=== PATIENT | male | born 1975 | race Caucasian/White ===

== ENCOUNTER 2018-06-09 16:49 | Observation (INO) | payer BC, SELFPAY ==
[2018-06-09] VITALS (9 sets, daily range): BP systolic 140–185; BP diastolic 87–106; PULSE 75–118; RESP 17–24; TEMP 36.8–37.2; O2SAT 96–100; BMI 29.3; BMI 28.7
--- NOTE | 2018-06-09 16:54 | EKG12_ITS ---
Test Reason : CP Blood Pressure : / mmHG Vent. Rate : 116 BPM Atrial Rate : 116 BPM P-R Int : 156 ms QRS Dur : 096 ms QT Int : 306 ms P-R-T Axes : 044 086 -21 degrees QTc Int : 425 ms Sinus tachycardia T wave abnormality, consider inferior ischemia Abnormal ECG Confirmed by JAYLAN MAYER, LOCO ([id number]), science editor MILE RAND ([id number]) on 06/11/2018 10:01:16 AM Referred By: ROSALEE/ALICE Confirmed By:LOCO TIAN MD
--- NOTE | 2018-06-09 16:55 | RAD_ITS ---
STUDY: X-RAY CHEST REASON FOR EXAM: Male, 43 years old. Chest pain. TECHNIQUE: Single AP portable view of the chest. COMPARISON: None. FINDINGS: Telemetry wires overlie the chest. The lungs are clear and expanded. There is no demonstrated pleural abnormality. Normal size heart. Normal mediastinum and shadia. Normal visualized pulmonary arteries. Normal visualized aortic arch and descending thoracic aorta. Normal visualized thoracic spine. Normal visualized ribs, clavicles, and shoulders. There is no demonstrated abnormality of the visualized soft tissue structures of the upper abdomen. RAD/Chest 1 View (Portable) IMPRESSION: Normal x-ray examination of the chest. Electronically Signed: Alonzo Rouse DO at 17:13 EDT Tel [phone], Service support ,
--- NOTE | 2018-06-09 17:02 | ED.RN ---
NO OLD EKG
[2018-06-09 17:05] LABS: Absolute Lymphocyte Count 2.45 X10^3/ul (0.83-4.51); Absolute Neutrophil Count 9.3 X10^3/uL (2.0-7.7); Basophil# 0.02 X10^3/uL; Basophil% 0.2 % (0-1); Eosinophil# 0.07 X10^3/uL; Eosinophils% 0.6 % (0-5); Hematocrit 45.9 % (40-54); Hemoglobin 15.8 g/dl (13.0-16.5); Lymphocyte # 2.45 X10^3/ul (4.0); Lymphocyte % 19.8 % (19-41); Mean Corp Hgb Conc 34.4 g/gl (32-36); Mean Corpuscular Volume 84.4 fL (80-94); Mean Platelet Vol. 9.8 fl (6.2-12.0); Monocyte# 0.47 X10^3/uL; Monocyte% 3.8 % (0-10); Neutrophil # 9.33 X10^3/uL (2.7-7.7); Neutrophil % 75.3 % (47-70); Platelet Count 295 K/mm3 (150-450); RBC Distribution Width CV 13.1 % (11.6-14.6); Red Blood Count 5.44 M/mm3 (4.6-6.2); White Blood Count 12.4 K/mm3 (4.4-11.0)
[2018-06-09 17:06] LABS: POSITIVE COUNT NO; POSITIVE DIFFERENTIAL NO; POSITIVE MORPHOLOGY NO
[2018-06-09] MEDS: Aspirin 81 MG TAB.CHEW 324 MG PO (17:13)
[2018-06-09 17:29] LABS: Anion Gap 6 (5-15); BUN 7 mg/dL (7-18); BUN/Creat Ratio 6.1 RATIO (10-20); Calcium,Total 9.3 mg/dL (8.5-10.1); Chloride 105 mmol/L (98-107); Creatinine, Serum 1.14 mg/dL (0.70-1.30); EST Glomerular Filtration Rate 74 mL/min (>60); Est Glom Filt Rate - Afr Amer 90 mL/min (>60); Estimated Creatinine Clearance 78.12 ml/min; Glucose 106 mg/dL (74-106); Potassium 3.7 mmol/L (3.5-5.1); Sodium Level 139 mmol/L (136-145)
[2018-06-09 17:40] LABS: D-Dimer Quantitative (DVT/PE) < 0.27 FEU/ug/m (0.27-0.49)
--- NOTE | 2018-06-09 17:52 | ED.DCSUM_ITS ---
- ER Visit Summary Date of Service: 06/09/18 Chief Complaint: Chest pain History of Present Illness: The patient is a 43 M presenting with chest pain. Patient was bowling today and began having midsternal chest pain. This radiated to his left arm. Pain improved over the next couple of hours. He states that at the worst it was 8 out of 10. Currently 0/10. Pain was a heaviness. He had associated nausea, diaphoresis, lightheadedness. He denies shortness of breath. He denies known medical problems but does not see a doctor regularly. He states that at his work he has had his blood pressure and cholesterol checked and they have been high. He is a smoker. Physical Examination: Vitals are stable. Patient is afebrile. Alert no acute distress. HEENT exam is unremarkable. Neck is supple. Lungs are clear and equal bilaterally. Heart is regular rate and rhythm. Abdomen is soft nontender nondistended. Extremities are unremarkable. Skin is warm and dry. No focal neurologic deficit. Remainder of exam is unremarkable. Emergency Department Course and Treatment: Patient was given aspirin on arrival. EKG is sinus tach rate of 116 with inferior T wave inversions, no old for comparison. Chest x-ray shows no acute process. CBC shows white count 12.4. Chemistries normal. Troponin and d-dimer are negative. Patient is pain-free in the emergency department. Discussed with the hospitalist for observation. Disposition: Observation Impression: Chest pain This note was generated with [employer] dictation software. It may contain incorrect words, spelling, and punctuation that were not noted in review of the chart prior to signing ED Disposition - Plan for ED Patient: Chief Complaint: Chest Pain Referrals: Care Physician,No Primary [Primary Care Provider] -
--- NOTE | 2018-06-09 18:59 | PCM.HP.STD ---
History of Present Illness Date of Admission: 06/09/18 Chief Complaint: Chest pain. The patient is a 43 year old M with no significant past medical history presented to the emergency room because of chest pain. Her symptoms started when he was bowling today and started having chest pain, midsternal pain and to the left side, sharp pain, 8 out of 10 in severity, currently is almost 0 out of 10 in severity, sometimes goes to his left arm, associated with nausea and dizziness and without aggravating or relieving factors. He denies shortness of breath, syncope or presyncope. He mentioned that before this episode chest pain, he had an episode of dizziness while he was bowling. He mentioned that his blood pressure has been fluctuating significantly and sometimes it is high. Also, he did mention that he was diagnosed with an anxiety recently. Upon arrival to ER, he was tachycardic, hypertensive and his other vital signs were stable. His routine blood work was unremarkable except for mild leukocytosis which is probably reactive. His d-dimer and troponin were negative. EKG revealed normal sinus rhythm, normal [place] interval, normal QRS, minimal T wave inversion in leads III and aVF, no acute ischemic changes. Chest x-ray showed no acute findings. He is being admitted for chest pain for evaluation. Past Medical History Allergies No Known Allergies Allergy (Verified 06/09/18 16:52) Home Medications: Ambulatory Orders Medication Instructions Recorded NK 06/09/18 Surgical History: no surgical history Psychiatric History: Anxiety Lives: With Family Smoking Status: Current every day smoker Alcohol: None Drugs: None - *Family History Maternal History Items: Hypertension Paternal History Items: Hypertension Review of Systems Constitutional: Denies: Anorexia, Chills, Fever, Weakness Eyes: Denies: Blurred vision, Double vision, Drainage, Redness HEENT: Denies: Difficulty Hearing, Ear Pain, Eye Pain, Nasal Congestion, Sore Throat Cardiovascular: Reports: Chest Pain, Light Headedness. Denies: Edema, Heaviness, Palpitations, Paroxysmal Noc. Dyspnea, Syncope Respiratory: Denies: Cough, Hemoptysis, Pleuritic Pain, Shortness of Breath, Sputum production, Wheezing Gastrointestinal: Reports: Nausea. Denies: Abdominal Pain, Constipation, Diarrhea, Vomiting Musculoskeletal: Denies: Arm Pain, Back Pain, Foot Pain Skin: Denies: Dryness, Rash Neurological: Denies: Balance problems, Double vision, Change in Speech, Slurred speech, Confusion, Headaches, Incoordination, Numbness Psychiatric: Reports: Anxiety. Denies: Depression Endocrine: Denies: Change in Body Habitus, Polydipsia VTE Information - Inpt Only VTE Present on Admission: No VTE Mechan Device Prophylaxis: None VTE Pharm Prophylaxis ordered?: No - Physical Exam General: Alert, Oriented x3, Cooperative, No apparent distress HEENT: Atraumatic, PERRLA, EOMI, Normocephalic Oral: Moist Mucosa, No Gingival or Mucosal Lesions/ Ulcerations Neck: Supple, No JVD, Negative Carotid Bruits, Trachea Midline, Thyroid Normal Size and Texture Lungs: Clear to auscultation, Normal air movement, No rhonchi, No wheeze, No rales Cardiovascular: Regular rate, Regular Rhythm, Normal S1, Normal S2, No murmurs Abdomen: Bowel Sounds Present, Soft, Non Tender, Non-Distended, No Hepato-splenomegaly Extremities: No clubbing, No cyanosis, No edema Skin: No rashes, No breakdown Lymphatic: No Cervical, Supraclavicular, or Inguinal Adenopathy Neurological: Cranial nerves II-XII grossly intact, Motor Exam 5/5 strength throughout Psych/Mental Status: Normal Affect, Appropriate, Alert and oriented to time, place, person, mood and affect Vital Signs Temp Pulse Resp BP Pulse Ox 99 F 90 20 H 146/93 H 96 06/09/18 16:50 06/09/18 18:38 06/09/18 18:38 06/09/18 18:38 06/09/18 18:38 Oxygen Flow Rate (L/min) 2 Oxygen Delivery Method Room Air Weight: 187 lb 6.287 oz Body Mass Index (BMI) 29.3 Laboratory Tests Past 24 Hrs 06/09/18 06/09/18 06/09/18 16:53 16:53 16:53 WBC 12.4 H RBC 5.44 Hgb 15.8 Hct 45.9 MCV 84.4 MCH 29.0 MCHC 34.4 RDW 13.1 RDW Differential 40.0 Plt Count 295 MPV 9.8 Immature Gran % (Auto) 0.300 Neut % (Auto) 75.3 H Lymph % (Auto) 19.8 Mcpherson % (Auto) 3.8 Eos % (Auto) 0.6 Baso % (Auto) 0.2 Absolute Neuts (auto) 9.3 H Absolute Lymphs (auto) 2.45 Total Counted Not Reportable D-Dimer Quant (PE/DVT) < 0.27 L Sodium 139 Potassium 3.7 Chloride 105 Carbon Dioxide 28.0 Anion Gap 6 BUN 7 Creatinine 1.14 Estim Creat Clear Calc 78.12 Est GFR (MDRD) Af Amer 90 Est GFR (MDRD) Non-Af 74 BUN/Creatinine Ratio 6.1 L Glucose 106 Calcium 9.3 Troponin I < 0.015 Clinical Impression(s) from Imaging Studies Chest X-Ray 06/09/18 16:55 IMPRESSION: Normal x-ray examination of the chest. Electronically Signed: Alonzo Rouse DO at 17:13 EDT Tel [phone], Service support , Assessment/Plan This is a 42 years old male patient presented to the emergency room because of chest pain and is being admitted for evaluation. #1 chest pain: No significant risk factors except intermittently elevated blood pressure without diagnosis of hypertension as well as smoking. No family history of premature CAD. Initial EKG revealed normal sinus rhythm with minimally inverted T wave in leads III and aVF, no acute ischemic changes. Chest x-ray without acute findings. Routine blood work was unremarkable. Troponin is negative. Plan: Admit to PCU for observation, cardiac monitoring, serial cardiac enzymes, repeat EKG tomorrow morning, TSH, nuclear stress tomorrow morning, IV morphine as needed for pain, IV Zofran as needed, Tylenol as needed. #2 elevated blood pressure/tachycardia: Initially, patient was hypotensive and tachycardic. At this time, blood pressure and heart rate improved. He mentioned that sometimes his blood pressure is elevated and has been fluctuating but never been diagnosed with hypertension and he is not on medications. Plan: Monitoring blood pressure, IV Heatherly as needed, may need to start him on antihypertensive medications if his blood pressure remained high overnight. #3 anxiety disorder: Patient mentioned he was diagnosed with anxiety attacks and his elevated blood pressure and tachycardia could be due to anxiety. He is not on any medications for it. #4 DVT prophylaxis: Low risk patient, no prophylaxis indicated. This note was generated with [employer] software. It may contain incorrect words, spelling, and punctuation that were not noted in checking the note before signing. Code Visit OBSV E&M: 73422 Initial observation care L3
--- NOTE | 2018-06-09 19:03 | HP.PCM_ITS ---
History of Present Illness Date of Admission: 06/09/18 Chief Complaint: Chest pain. The patient is a 43 year old M with no significant past medical history presented to the emergency room because of chest pain. Her symptoms started when he was bowling today and started having chest pain, midsternal pain and to the left side, sharp pain, 8 out of 10 in severity, currently is almost 0 out of 10 in severity, sometimes goes to his left arm, associated with nausea and dizziness and without aggravating or relieving factors. He denies shortness of breath, syncope or presyncope. He mentioned that before this episode chest pain, he had an episode of dizziness while he was bowling. He mentioned that his blood pressure has been fluctuating significantly and sometimes it is high. Also, he did mention that he was diagnosed with an anxiety recently. Upon arrival to ER, he was tachycardic, hypertensive and his other vital signs were stable. His routine blood work was unremarkable except for mild leukocytosis which is probably reactive. His d-dimer and troponin were negative. EKG revealed normal sinus rhythm, normal [place] interval, normal QRS, minimal T wave inversion in leads III and aVF, no acute ischemic changes. Chest x-ray showed no acute findings. He is being admitted for chest pain for evaluation. Past Medical History Allergies No Known Allergies Allergy (Verified 06/09/18 16:52) Home Medications: Ambulatory Orders Medication Instructions Recorded NK 06/09/18 Surgical History: no surgical history Psychiatric History: Anxiety Lives: With Family Smoking Status: Current every day smoker Alcohol: None Drugs: None - *Family History Maternal History Items: Hypertension Paternal History Items: Hypertension Review of Systems Constitutional: Denies: Anorexia, Chills, Fever, Weakness Eyes: Denies: Blurred vision, Double vision, Drainage, Redness HEENT: Denies: Difficulty Hearing, Ear Pain, Eye Pain, Nasal Congestion, Sore Throat Cardiovascular: Reports: Chest Pain, Light Headedness. Denies: Edema, Heaviness, Palpitations, Paroxysmal Noc. Dyspnea, Syncope Respiratory: Denies: Cough, Hemoptysis, Pleuritic Pain, Shortness of Breath, Sputum production, Wheezing Gastrointestinal: Reports: Nausea. Denies: Abdominal Pain, Constipation, Diarrhea, Vomiting Musculoskeletal: Denies: Arm Pain, Back Pain, Foot Pain Skin: Denies: Dryness, Rash Neurological: Denies: Balance problems, Double vision, Change in Speech, Slurred speech, Confusion, Headaches, Incoordination, Numbness Psychiatric: Reports: Anxiety. Denies: Depression Endocrine: Denies: Change in Body Habitus, Polydipsia VTE Information - Inpt Only VTE Present on Admission: No VTE Mechan Device Prophylaxis: None VTE Pharm Prophylaxis ordered?: No - Physical Exam General: Alert, Oriented x3, Cooperative, No apparent distress HEENT: Atraumatic, PERRLA, EOMI, Normocephalic Oral: Moist Mucosa, No Gingival or Mucosal Lesions/ Ulcerations Neck: Supple, No JVD, Negative Carotid Bruits, Trachea Midline, Thyroid Normal Size and Texture Lungs: Clear to auscultation, Normal air movement, No rhonchi, No wheeze, No rales Cardiovascular: Regular rate, Regular Rhythm, Normal S1, Normal S2, No murmurs Abdomen: Bowel Sounds Present, Soft, Non Tender, Non-Distended, No Hepato- splenomegaly Extremities: No clubbing, No cyanosis, No edema Skin: No rashes, No breakdown Lymphatic: No Cervical, Supraclavicular, or Inguinal Adenopathy Neurological: Cranial nerves II-XII grossly intact, Motor Exam 5/5 strength throughout Psych/Mental Status: Normal Affect, Appropriate, Alert and oriented to time, place, person, mood and affect Vital Signs Temp Pulse Resp BP Pulse Ox 99 F 90 20 H 146/93 H 96 06/09/18 16:50 06/09/18 18:38 06/09/18 18:38 06/09/18 18:38 06/09/18 18:38 Oxygen Flow Rate (L/min) 2 Oxygen Delivery Method Room Air Weight: 187 lb 6.287 oz Body Mass Index (BMI) 29.3 Laboratory Tests Past 24 Hrs 06/09/18 06/09/18 06/09/18 16:53 16:53 16:53 WBC 12.4 H RBC 5.44 Hgb 15.8 Hct 45.9 MCV 84.4 MCH 29.0 MCHC 34.4 RDW 13.1 RDW Differential 40.0 Plt Count 295 MPV 9.8 Immature Gran % (Auto) 0.300 Neut % (Auto) 75.3 H Lymph % (Auto) 19.8 Lyon % (Auto) 3.8 Eos % (Auto) 0.6 Baso % (Auto) 0.2 Absolute Neuts (auto) 9.3 H Absolute Lymphs (auto) 2.45 Total Counted Not Reportable D-Dimer Quant (PE/DVT) < 0.27 L Sodium 139 Potassium 3.7 Chloride 105 Carbon Dioxide 28.0 Anion Gap 6 BUN 7 Creatinine 1.14 Estim Creat Clear Calc 78.12 Est GFR (MDRD) Af Amer 90 Est GFR (MDRD) Non-Af 74 BUN/Creatinine Ratio 6.1 L Glucose 106 Calcium 9.3 Troponin I < 0.015 Clinical Impression(s) from Imaging Studies Chest X-Ray 06/09/18 16:55 IMPRESSION: Normal x-ray examination of the chest. Electronically Signed: Alonzo Rouse DO at 17:13 EDT Tel [phone], Service support , Assessment/Plan This is a 42 years old male patient presented to the emergency room because of chest pain and is being admitted for evaluation. #1 chest pain: No significant risk factors except intermittently elevated blood pressure without diagnosis of hypertension as well as smoking. No family history of premature CAD. Initial EKG revealed normal sinus rhythm with minim ally inverted T wave in leads III and aVF, no acute ischemic changes. Chest x- ray without acute findings. Routine blood work was unremarkable. Troponin is negative. Plan: Admit to PCU for observation, cardiac monitoring, serial cardiac enzymes, repeat EKG tomorrow morning, TSH, nuclear stress tomorrow morning, IV morphine as needed for pain, IV Zofran as needed, Tylenol as needed. #2 elevated blood pressure/tachycardia: Initially, patient was hypotensive and tachycardic. At this time, blood pressure and heart rate improved. He mentioned that sometimes his blood pressure is elevated and has been fluctuating but never been diagnosed with hypertension and he is not on medications. Plan: Monitoring blood pressure, IV Heatherly as needed, may need to start him on antihypertensive medications if his blood pressure remained high overnight. #3 anxiety disorder: Patient mentioned he was diagnosed with anxiety attacks and his elevated blood pressure and tachycardia could be due to anxiety. He is not on any medications for it. #4 DVT prophylaxis: Low risk patient, no prophylaxis indicated. This note was generated with [employer] software. It may contain incorrect words, spelling, and punctuation that were not noted in checking the note before signing. Code Visit OBSV E&M: 89290 Initial observation care L3
--- NOTE | 2018-06-09 20:00 | EKG12_ITS ---
Test Reason : ADM CP Blood Pressure : / mmHG Vent. Rate : 081 BPM Atrial Rate : 081 BPM P-R Int : 160 ms QRS Dur : 096 ms QT Int : 352 ms P-R-T Axes : 023 052 014 degrees QTc Int : 408 ms Normal sinus rhythm Nonspecific ST and T wave abnormality Abnormal ECG When compared with ECG of 09-JUN-2018 16:51, MANUAL COMPARISON REQUIRED, DATA IS UNCONFIRMED Confirmed by JAYLAN MAYER, LOCO ([id number]), metropolitan editor FLORY STRAUSS ([id number]) on 06/15/2018 10:58:46 AM Referred By: COLLETTE Confirmed By:LOCO TIAN MD
[2018-06-09] MEDS: 0.9% Normal Saline 1,000 ML 100 ML IV (20:21)
[2018-06-09 20:28] LABS: Thyroid Stim Hormone (TSH) 0.78 uIU/mL (0.358-3.74)
[2018-06-10 01:55] VITALS: BP 151/86; PULSE 75; RESP 16; TEMP 36.5; O2SAT 96
[2018-06-10 03:14] VITALS: PULSE 63
[2018-06-10] MEDS: Aspirin E.C. 81 MG Tablet PO (05:39)
[2018-06-10 05:42] VITALS: BP 145/87; PULSE 72; RESP 16; TEMP 36.3; O2SAT 99
[2018-06-10 05:52] LABS: Absolute Lymphocyte Count 3.45 X10^3/ul (0.83-4.51); Absolute Neutrophil Count 5.5 X10^3/uL (2.0-7.7); Basophil# 0.02 X10^3/uL; Basophil% 0.2 % (0-1); Eosinophil# 0.14 X10^3/uL; Eosinophils% 1.4 % (0-5); Hematocrit 42.3 % (40-54); Hemoglobin 14.6 g/dl (13.0-16.5); Lymphocyte # 3.45 X10^3/ul (4.0); Lymphocyte % 34.9 % (19-41); Mean Corp Hgb Conc 34.5 g/gl (32-36); Mean Corpuscular Hgb 29.1 pg (27.0-32.0); Mean Corpuscular Volume 84.4 fL (80-94); Mean Platelet Vol. 10.3 fl (6.2-12.0); Monocyte# 0.71 X10^3/uL; Monocyte% 7.2 % (0-10); Neutrophil % 55.7 % (47-70); Platelet Count 294 K/mm3 (150-450); RBC Distribution Width CV 13.1 % (11.6-14.6); RBC Distribution Width SD 39.9 fl (35.1-43.9); Red Blood Count 5.01 M/mm3 (4.6-6.2); White Blood Count 9.9 K/mm3 (4.4-11.0)
[2018-06-10 05:54] LABS: Anion Gap 6 (5-15); BUN 10 mg/dL (7-18); BUN/Creat Ratio 9.8 RATIO (10-20); Calcium,Total 8.6 mg/dL (8.5-10.1); Chloride 109 mmol/L (98-107); Creatinine, Serum 1.02 mg/dL (0.70-1.30); EST Glomerular Filtration Rate 85 mL/min (>60); Est Glom Filt Rate - Afr Amer 102 mL/min (>60); Estimated Creatinine Clearance 87.31 ml/min; Glucose 94 mg/dL (74-106); Potassium 4.1 mmol/L (3.5-5.1); Sodium Level 142 mmol/L (136-145)
--- NOTE | 2018-06-10 05:55 | EKG12_ITS ---
Test Reason : AM EKG Blood Pressure : / mmHG Vent. Rate : 057 BPM Atrial Rate : 057 BPM P-R Int : 170 ms QRS Dur : 104 ms QT Int : 402 ms P-R-T Axes : 027 054 022 degrees QTc Int : 391 ms Sinus bradycardia with sinus arrhythmia Otherwise normal ECG When compared with ECG of 09-JUN-2018 20:03, MANUAL COMPARISON REQUIRED, DATA IS UNCONFIRMED Confirmed by JAYLAN MAYER, LOCO ([id number]), staff editor FLORY STRAUSS ([id number]) on 06/15/2018 10:58:02 AM Referred By: COLLETTE Confirmed By:LOCO TIAN MD
[2018-06-10 05:58] LABS: International Normalized Ratio 1.1
[2018-06-10 06:16] LABS: POSITIVE COUNT NO; POSITIVE DIFFERENTIAL NO; POSITIVE MORPHOLOGY NO
[2018-06-10 07:26] VITALS: PULSE 68
[2018-06-10 08:50] VITALS: BP 139/73; PULSE 72; RESP 18; TEMP 36.6; O2SAT 98
--- NOTE | 2018-06-10 09:12 | STRESSREP ---
Stress Test Report Exercise myocardial perfusion stress test. 43-year-old man with a history of chest pain. Stress protocol: Resting EKG demonstrates normal sinus rhythm with a rate of 81 bpm normal intervals and noted resting blood pressure 156/80 8 m of mercury. The patient exercised according to regular Blake protocol for total duration of 10 minutes patient completed 1 minute into stage IV of the Blake protocol the maximum heart rate attained was 164 bpm which was 92% of maximum predicted heart rate the maximum workload was 11.7 metabolic equivalents. At rest there were no ST or T wave changes noted suggest ischemia peak exercise upsloping ST changes only were noted with no meet the criteria for ischemia. Resting blood pressure 156/88 with a peak blood pressure 194/74. No clinical angina was noted rate pressure product was 26,500. Myocardial perfusion protocol. 11.9 mCi of technetium 99m sestamibi was injected at rest. Patient exercised according to regular Blake protocol attaining 11.7 metabolic equivalents at peak exercise 34.2 mCi of technetium 99m sestamibi was injected stress images were obtained stress and rest images were reconstructed and compared in the short axis vertical long horizontal long axis. Gated images were also obtained per Perfusion SPECT analysis: Review of the stress images demonstrate normal uptake of tracer noted in all areas of the myocardium the resting images similarly demonstrate normal uptake of tracer noted in all areas of the myocardium. No reversibility is noted suggest ischemia no previous infarct is noted. Gated SPECT analysis: The gated ejection fraction is noted to be 60%. Conclusion: Normal exercise myocardial perfusion stress test at a high workload. Preserved ejection fraction.
--- NOTE | 2018-06-10 09:52 | DCINST_ITS ---
You will use the following diet at home:: Cardiac Your food should be the consistency of: Regular Discharge Activity: Return to Normal Activity Call your doctor if you observe: Fever of 101 or Higher, Shortness of breath, Dizziness, Swelling in the ankles, Chest pain Allergies/Adverse Reactions: Allergies No Known Allergies Allergy (Verified 06/09/18 16:52) Medications to take at Discharge Lisinopril [Prinivil] 10 mg PO DAILY #30 tablet 06/10/18 The following prescriptions were given: Lisinopril [Prinivil] 10 mg PO DAILY #30 tablet Primary Care Physician: Care Physician,No Primary [Primary Care Provider] - Please follow up with your Primary Care Physician in: in 2 weeks Test Results: Test results from this visit will be discussed in further detail at your follow- up appointment, if applicable.
--- NOTE | 2018-06-10 09:56 | DS.PCM_ITS ---
Discharge Date and Diagnosis Date of Admission: 06/09/18 Date of Discharge: 06/10/18 - Primary Discharge Diagnosis Atypical chest pain. Acute coronary syndrome ruled out Systemic hypertension, untreated Hospital Course and Treatment Imaging Results: 06/10/18 05:55 Nuclear Stress Test - Treadmil [NM] Routine Summary of Care Provided: The patient is a 43 year old M with history of hypertension, untreated not on medication was admitted through ER for chest pain. He described chest pain as midsternal, sharp, 8/10 intensity acid with nausea and dizziness but no shortness of breath, diaphoresis syncope or near syncope. EKG shows normal sinus rhythm with minimal T inversion in leads III and aVF but no acute ischemic changes. Chest x-ray reported no acute finding. Patient was admitted on telemetry. Patient did not had chest pain afterwards. Patient knows he has hypertension and systolic blood pressure has been 150s-160s at home. Not taking any medications.Exercise nuclear stress test was done and reported as no areas of reversibility suggestive of ischemia. No patient's infarct noted. Gated EF 60%. Blood pressure was controlled during admission. Patient discharged on lisinopril 10 mg daily. Prescription sent to the pharmacy. Discharge medication reconciliation done. Discharge follow-up instructions completed. - Physical Exam General: Alert, Oriented x3, Cooperative HEENT: Atraumatic, PERRLA, EOMI, Normocephalic Neck: Supple, No JVD, Negative Carotid Bruits Lungs: Clear to auscultation, Normal air movement, No rhonchi, No wheeze Cardiovascular: Regular rate, Normal S1, Normal S2, No murmurs Abdomen: Bowel Sounds Present, Soft, Non Tender, Non-Distended Extremities: No edema, Capillary Refill Less than 3 Seconds Skin: No rashes, No breakdown Musculoskeletal: No Tenderness to Palpation of Joints or Extremities Neurological: Cranial nerves II-XII grossly intact Psych/Mental Status: Normal Affect, Appropriate Vital Signs Temp Pulse Resp BP Pulse Ox 97.9 F 72 18 139/73 H 98 06/10/18 08:50 06/10/18 08:50 06/10/18 08:50 06/10/18 08:50 06/10/18 08:50 Oxygen Flow Rate (L/min) 2 Oxygen Delivery Method Room Air Weight: 183 lb 6.793 oz Body Mass Index (BMI) 28.7 Intake and Output for Last 24 Hours 10/15/18 10/16/18 10/17/18 23:59 23:59 23:59 Intake Total 1477 / 1477 Balance 1477 / 1477 Laboratory Tests Past 24 Hrs 06/09/18 06/09/18 06/09/18 16:53 16:53 16:53 WBC 12.4 H RBC 5.44 Hgb 15.8 Hct 45.9 MCV 84.4 MCH 29.0 MCHC 34.4 RDW 13.1 RDW Differential 40.0 Plt Count 295 MPV 9.8 Immature Gran % (Auto) 0.300 Neut % (Auto) 75.3 H Lymph % (Auto) 19.8 Tyrrell % (Auto) 3.8 Eos % (Auto) 0.6 Baso % (Auto) 0.2 Absolute Neuts (auto) 9.3 H Absolute Lymphs (auto) 2.45 Total Counted Not Reportable PT INR APTT D-Dimer Quant (PE/DVT) < 0.27 L Sodium 139 Potassium 3.7 Chloride 105 Carbon Dioxide 28.0 Anion Gap 6 BUN 7 Creatinine 1.14 Estim Creat Clear Calc 78.12 Est GFR (MDRD) Af Amer 90 Est GFR (MDRD) Non-Af 74 BUN/Creatinine Ratio 6.1 L Glucose 106 Calcium 9.3 Troponin I < 0.015 TSH 06/09/18 06/09/18 06/09/18 16:53 20:18 23:13 WBC RBC Hgb Hct MCV MCH MCHC RDW RDW Differential Plt Count MPV Immature Gran % (Auto) Neut % (Auto) Lymph % (Auto) Tyrrell % (Auto) Eos % (Auto) Baso % (Auto) Absolute Neuts (auto) Absolute Lymphs (auto) Total Counted PT INR APTT D-Dimer Quant (PE/DVT) Sodium Potassium Chloride Carbon Dioxide Anion Gap BUN Creatinine Estim Creat Clear Calc Est GFR (MDRD) Af Amer Est GFR (MDRD) Non-Af BUN/Creatinine Ratio Glucose Calcium Troponin I < 0.015 < 0.015 TSH 0.78 06/10/18 06/10/18 06/10/18 05:08 05:08 05:08 WBC 9.9 RBC 5.01 Hgb 14.6 Hct 42.3 MCV 84.4 MCH 29.1 MCHC 34.5 RDW 13.1 RDW Differential 39.9 Plt Count 294 MPV 10.3 Immature Gran % (Auto) 0.600 Neut % (Auto) 55.7 Lymph % (Auto) 34.9 Tyrrell % (Auto) 7.2 Eos % (Auto) 1.4 Baso % (Auto) 0.2 Absolute Neuts (auto) 5.5 Absolute Lymphs (auto) 3.45 Total Counted Not Reportable PT 14.0 INR 1.1 APTT 35.0 D-Dimer Quant (PE/DVT) Sodium 142 Potassium 4.1 Chloride 109 H Carbon Dioxide 27.0 Anion Gap 6 BUN 10 Creatinine 1.02 Estim Creat Clear Calc 87.31 Est GFR (MDRD) Af Amer 102 Est GFR (MDRD) Non-Af 85 BUN/Creatinine Ratio 9.8 L Glucose 94 Calcium 8.6 Troponin I TSH Discharge Activity: Return to Normal Activity Call your doctor if you observe: Fever of 101 or Higher, Shortness of breath, Dizziness, Swelling in the ankles, Chest pain Home Medications: Medications to take at Discharge Lisinopril [Prinivil] 10 mg PO DAILY #30 tablet 06/10/18 Following Prescrptions Were Given to Patient: Lisinopril [Prinivil] 10 mg PO DAILY #30 tablet Primary Care Physician: Care Physician,No Primary [Primary Care Provider] - Please follow up with your Primary Care Physician in: in 2 weeks Medical Necessity - Tobacco Use Smoking Status: Current every day smoker Tobacco Use: Cigarettes Meaningful Use Info Meaningful Use Diagnoses (Choose all that apply): None applicable Code Visit OBSV E&M: 09788 Observation care discharge
[2018-06-10 10:42] VITALS: BP 123/70; PULSE 64; RESP 18; TEMP 36.8; O2SAT 99
== END 2018-06-10 09:52 | disposition home or self-care (01) ==
LOC: ED 17:16 → PCU 19:31
PROVIDERS: Admitting Provider Hospitalist; Emergency Provider Emergency Medicine; Visit Provider Internal Medicine
DX: R07.89 Other chest pain (principal); I10 Essential (primary) hypertension; R11.0 Nausea; R42 Dizziness and giddiness; F41.9 Anxiety disorder, unspecified; R00.0 Tachycardia, unspecified; F17.210 Nicotine dependence, cigarettes, uncomplicated
CPT/HCPCS: 36415; 71045; 78452; 80048; 84443; 84484; 85025; 85379; 85610; 85730; 93005; 93017; 96360; 96361; 99218; 99283; A9500; J7030; A4216; G0378

== ENCOUNTER 2019-02-23 13:55 | Emergency (ER) | payer BC, SELFPAY ==
[2019-02-23 13:56] VITALS: BP 156/89; PULSE 98; RESP 17; TEMP 36.6; O2SAT 99; BMI 29.6
[2019-02-23 14:02] VITALS: PULSE 99; RESP 15
--- NOTE | 2019-02-23 14:11 | EKG12_ITS ---
Test Reason : CONFUSION Blood Pressure : / mmHG Vent. Rate : 088 BPM Atrial Rate : 088 BPM P-R Int : 150 ms QRS Dur : 096 ms QT Int : 350 ms P-R-T Axes : 017 043 010 degrees QTc Int : 423 ms Normal sinus rhythm Normal ECG Confirmed by TACO MAYER, CHERYL ([id number]), editor department PRINCE BUCHANAN ([id number]) on 02/24/2019 12:28:36 PM Referred By: MARISABEL Confirmed By:CHERYL ESPAÑA MD
[2019-02-23 14:20] LABS: Absolute Lymphocyte Count 2.03 X10^3/ul (0.83-4.51); Absolute Neutrophil Count 8.1 X10^3/uL (2.0-7.7); Basophil# 0.03 X10^3/uL; Basophil% 0.3 % (0-1); Eosinophil# 0.04 X10^3/uL; Eosinophils% 0.4 % (0-5); Hematocrit 45.2 % (40-54); Hemoglobin 15.7 g/dl (13.0-16.5); Lymphocyte # 2.03 X10^3/ul (4.0); Lymphocyte % 18.8 % (19-41); Mean Corp Hgb Conc 34.7 g/gl (32-36); Mean Corpuscular Hgb 28.4 pg (27.0-32.0); Mean Corpuscular Volume 81.9 fL (80-94); Monocyte# 0.57 X10^3/uL; Monocyte% 5.3 % (0-10); Neutrophil # 8.06 X10^3/uL (2.7-7.7); Neutrophil % 74.8 % (47-70); Platelet Count 303 K/mm3 (150-450); RBC Distribution Width CV 12.9 % (11.6-14.6); RBC Distribution Width SD 38.7 fl (35.1-43.9); Red Blood Count 5.52 M/mm3 (4.6-6.2); White Blood Count 10.8 K/mm3 (4.4-11.0)
[2019-02-23 14:22] LABS: POSITIVE COUNT NO; POSITIVE DIFFERENTIAL NO; POSITIVE MORPHOLOGY NO
[2019-02-23 14:29] LABS: Anion Gap 2 (5-15); BUN 9 mg/dL (7-18); BUN/Creat Ratio 7.7 RATIO (10-20); Calcium,Total 9.4 mg/dL (8.5-10.1); Chloride 104 mmol/L (98-107); Creatinine, Serum 1.17 mg/dL (0.70-1.30); EST Glomerular Filtration Rate 72 mL/min (>60); Est Glom Filt Rate - Afr Amer 87 mL/min (>60); Estimated Creatinine Clearance 76.11 ml/min; Glucose 98 mg/dL (74-106); Potassium 3.8 mmol/L (3.5-5.1); Sodium Level 136 mmol/L (136-145)
[2019-02-23] MEDS: Ondansetron 4 MG/2 ML Vial IV (14:52)
[2019-02-23] MEDS: 0.9% Normal Saline 1,000 ML 1000 ML IV (14:52)
[2019-02-23] MEDS: Meclizine HCl 25 MG Tablet PO (14:52)
--- NOTE | 2019-02-23 15:47 | ED.DCSUM_ITS ---
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 Today there is spinning sensation seem to be worse. He did have some nausea with it. He also has some mild right flank pain that he thinks may be muscular from retching. Physical Examination: Blood pressure is 156/89, otherwise vitals normal. Patient sitting upright in bed no acute distress. Head and neck examination unremarkable. Heart is regular rate and rhythm. Lung sounds are clear. Abdomen is soft and nontender. Neuro exam reveals normal strength and sensation throughout. Normal cerebellar testing. Test Results: EKG is sinus 88 with no acute ischemia. CBC and chemistry studies normal. Emergency Department Course and Treatment: Patient has no symptoms when he holds his head still but has recurrent symptoms with head movement. He is treat with IV fluids, Zofran, and Antivert. On repeat evaluation he was improved. He was able to ambulate to the restroom and back without difficulty. Urinalysis is unremarkable. Patient be discharged with a prescription for Zofran and Antivert. Treatment Plan: [] Disposition: Discharge Impression: BPPV, improved This note was generated with [employer] dictation software. It may contain incorrect words, spelling, and punctuation that were not noted in review of the chart prior to signing ED Disposition - Plan for ED Patient: Disposition: Home or Assisted Living Instructions: VERTIGO, Unspecified Prescriptions: Meclizine HCl [Antivert] 25 mg PO 4X/DAY PRN PRN #20 tablet PRN Reason: Dizziness Ondansetron [Zofran Odt] 4 mg PO Q8H PRN PRN #10 tablet PRN Reason: Nausea Referrals: Brittanie Naranjo MD [STAFF PHYSICIAN] - As Needed
[2019-02-23 16:06] LABS: Bacteria 0 SEEN /hpf (None Seen); Mucous, Urine 0 SEEN /hpf (<or=2+); Red Blood Cells-Urine 0 SEEN /hpf (0-5); Squamous Epithelial Cells - UA 0 SEEN /hpf (0-5)
[2019-02-23 16:07] VITALS: BP 133/72; PULSE 68; RESP 17; O2SAT 98
[2019-02-23 16:08] LABS: Color, Urine Straw (Yellow); Glucose, Dipstick Normal (Normal); Ketone-Dipstick Negative (Negative); Leukocyte Esterase-Dipstick Negative /ul (Negative); Nitrite-Dipstick Negative (Negative); Occult Blood-Urine Negative /ul (Negative); Protein-Dipstick Negative (Negative); Urine Bilirubin Dipstick Negative (Negative); Urine Clarity Clear (Clear); Urine Urobilinogen Normal (Normal); Urine pH 6.5 (5.0 - 8.0)
[2019-02-23 16:20] LABS: White Blood Cells 0-5 SEEN /hpf (0-5)
[2019-02-23 16:35] VITALS: BP 152/74; PULSE 71; RESP 16; O2SAT 99
== END 2019-02-23 16:35 | disposition home or self-care (01) ==
PROVIDERS: Emergency Provider Emergency Medicine
DX: H81.10 Benign paroxysmal vertigo, unspecified ear (principal); I10 Essential (primary) hypertension; Z72.0 Tobacco use; Z79.899 Other long term (current) drug therapy
CPT/HCPCS: 80048; 81001; 85025; 93005; 96361; 96374; 99285; J7030; A4216; J2405

== ENCOUNTER 2019-03-24 14:38 | Emergency (ER) | payer BC, SELFPAY ==
[2019-03-24 14:39] VITALS: BP 140/81; PULSE 94; RESP 17; TEMP 36.6; O2SAT 99; BMI 29.7
[2019-03-24 14:42] VITALS: BP 140/81; PULSE 90; RESP 18; O2SAT 99
--- NOTE | 2019-03-24 15:11 | EKG12_ITS ---
Test Reason : CP Blood Pressure : / mmHG Vent. Rate : 091 BPM Atrial Rate : 091 BPM P-R Int : 154 ms QRS Dur : 098 ms QT Int : 346 ms P-R-T Axes : 022 048 004 degrees QTc Int : 425 ms Normal sinus rhythm Normal ECG Confirmed by ROSE MAYER, LANDY ([id number]), industrial editor FARRAH WORTHINGTON ([id number]) on 03/25/2019 1:11:10 PM Referred By: JEFFREY Confirmed By:SAMUEL ROSE MD
--- NOTE | 2019-03-24 15:11 | CT_ITS ---
STUDY: CT BRAIN WITHOUT CONTRAST REASON FOR EXAM: Male, 44 years old. Dizziness. Chest pain. RADIATION DOSAGE (If Supplied By Facility): CTDIvol = ( 60.81 ) mGy, DLP = ( 975.86 ) mGycm TECHNIQUE: Transaxial CT imaging of the brain was performed without administration of intravenous contrast material. Individualized dose optimization techniques were used for this CT. COMPARISON: No relevant priors. FINDINGS: Normal soft tissue structures. Normal calvarium. Normal size ventricles and extra-axial spaces for the patient's age. Normal white matter tracts of the cerebral hemispheres. Normal basal ganglia and thalami. Normal brainstem. Normal cerebellum. There is no intracranial hemorrhage. There are no findings of an acute ischemic infarction. Normal visualized paranasal sinuses. CT/Brain/Head without Contrast IMPRESSION: Normal unenhanced CT scan of the brain. Electronically Signed: Neymar Antonoi, at 15:53 EDT , Service support ,
--- NOTE | 2019-03-24 15:14 | ED.DCSUM_ITS ---
- ER Visit Summary Date of Service: 03/24/19 Chief Complaint: Chest pain History of Present Illness: The patient is a 44 M who presents with chest pain that has been constant for the past couple weeks. Patient describes a burning. Patient states the pain is over the left chest area. Patient admits to some nausea and has had some dry heaves. Patient also admits to a cough but denies any sputum production. Patient admits to some heartburn and reflux. Patient also admits to some palpitations where he feels his heart skips a beat. Patient states his dizziness is worse when he moves his head to the right and looks up. Patient states this makes him feel like he is going to pass out. Patient denies any spinning sensation. Patient does admit to some throbbing pain in his right ear. Patient does admit to some shortness of breath. Patient has a history of hypertension and is a smoker. Patient denies any PE risk factors. Physical Examination: Vital signs are stable. Patient is afebrile. Patient is in no acute distress. Oral mucosa is pink and moist. Neck is supple. Trachea is midline. There is no JVD noted. Heart was regular rate and rhythm. Lungs are clear and equal bilateral. Abdomen is soft. Bowel sounds are normal. There is no tenderness. There is no guarding noted. Skin is warm dry. Cranial nerves II through XII are intact. There are no focal motor or sensory deficits noted. There is no edema or tenderness of the lower extremities Test Results: EKG shows normal sinus rhythm with a rate of 91. There are no acute ST or T wave changes. PA and lateral chest x-ray was obtained. There is no acute cardiopulmonary process. CBC and basic metabolic profile and troponin were obtained and were normal. Emergency Department Course and Treatment: Patient was given a dose of Tylenol here for his headache. Patient was feeling better on reevaluation. Patient has a HEART score of 2. Patient was advised that this is low risk for acute cardiac event. Patient was instructed to follow-up with her primary care physician in 5 to 7 days for further evaluation. Patient understood and was agreeable with the plan. All questions were answered. Disposition: Discharge home Impression: 1. Chest pain of uncertain etiology 2. Dizziness This note was generated with [employer] dictation software. It may contain incorrect words, spelling, and punctuation that were not noted in review of the chart prior to signing ED Disposition - Plan for ED Patient: Disposition: Home or Assisted Living Diagnosis: Chest pain of uncertain etiology, Dizziness Instructions: CHEST PAIN, Uncertain Cause, DIZZINESS, Unk Cause Referrals: Care Physician,No Primary [Primary Care Provider] - Brittanie Naranjo MD [STAFF PHYSICIAN] - 5-7 Days
[2019-03-24 15:23] LABS: Absolute Lymphocyte Count 2.51 X10^3/uL (0.83-4.51); Absolute Neutrophil Count 5.7 X10^3/uL (2.0-7.7); Basophil# 0.03 X10^3/uL; Basophil% 0.3 % (0-1); Eosinophil# 0.11 X10^3/uL; Eosinophils% 1.2 % (0-5); Hematocrit 43.2 % (40-54); Hemoglobin 14.6 g/dL (13.0-16.5); Lymphocyte # 2.51 X10^3/ul (4.0); Lymphocyte % 28.1 % (19-41); Mean Corp Hgb Conc 33.8 g/dL (32-36); Mean Corpuscular Volume 85.9 fL (80-94); Mean Platelet Vol. 10.3 fl (6.2-12.0); Monocyte# 0.49 X10^3/uL; Monocyte% 5.5 % (0-10); NRBC Flagged by Analyzer 0 % (0-5); Neutrophil # 5.73 X10^3/uL (2.7-7.7); Neutrophil % 64.2 % (47-70); Platelet Count 300 K/mm3 (150-450); RBC Distribution Width CV 12.8 % (11.6-14.6); RBC Distribution Width SD 39.8 fl (35.1-43.9); Red Blood Count 5.03 M/mm3 (4.6-6.2); White Blood Count 8.9 K/mm3 (4.4-11.0)
--- NOTE | 2019-03-24 15:28 | RAD_ITS ---
STUDY: X-RAY CHEST REASON FOR EXAM: Male, 44 years old. Left-sided chest pain with dizziness. TECHNIQUE: PA and lateral views of the chest. COMPARISON: Comparison is made with prior study dated June 09, 2018. FINDINGS: EKG electrodes are seen. The lungs are clear and expanded. There is no demonstrated pleural abnormality. Normal size heart. Normal mediastinum and shadia. Normal visualized pulmonary arteries. Normal visualized aortic arch and descending thoracic aorta. There are mild degenerative changes of the visualized thoracic spine. Normal visualized ribs, clavicles, and shoulders. There is no demonstrated abnormality of the visualized soft tissue structures of the upper abdomen. RAD/Chest PA and Lateral IMPRESSION: Normal x-ray examination of the chest. Electronically Signed: Neymar Antonio, at 15:58 EDT , Service support ,
[2019-03-24 15:39] LABS: Anion Gap 3 (5-15); BUN 9 mg/dL (7-18); BUN/Creat Ratio 7.8 RATIO (10-20); Calcium,Total 9.2 mg/dL (8.5-10.1); Chloride 105 mmol/L (98-107); Creatinine, Serum 1.15 mg/dL (0.70-1.30); EST Glomerular Filtration Rate 73 mL/min (>60); Est Glom Filt Rate - Afr Amer 89 mL/min (>60); Estimated Creatinine Clearance 76.64 ml/min; Glucose 112 mg/dL (74-106); Potassium 3.8 mmol/L (3.5-5.1); Sodium Level 138 mmol/L (136-145)
[2019-03-24] MEDS: Aspirin 81 MG TAB.CHEW 324 MG PO (15:42)
[2019-03-24 15:43] VITALS: BP 145/79; PULSE 82; RESP 16; O2SAT 97
[2019-03-24] MEDS: Acetaminophen 500 MG Tablet 1000 MG PO (16:00)
[2019-03-24 16:42] VITALS: BP 124/76; PULSE 67; RESP 19; O2SAT 96
[2019-03-24 17:02] VITALS: BP 125/82; PULSE 67; RESP 17; O2SAT 97
[2019-03-24 18:15] VITALS: BP 115/75; PULSE 66; RESP 16; O2SAT 97
--- NOTE | 2019-03-24 18:16 | ED.RN ---
IV DC'ED, CATHETER INTACT, SMALL GAUZE DRESSING PLACED. DISCHARGE INSTRUCTIONS GIVEN TO AND REVIEWED WITH PATIENT, PATIENT DENIES QUESTIONS OR CONCERNS AND VOICES UNDERSTANDING OF DISCHARGE INSTRUCTIONS. PT AMBULATES OUT OF ROOM WITHOUT ISSUE.
== END 2019-03-24 18:16 | disposition home or self-care (01) ==
PROVIDERS: Emergency Provider Emergency Medicine
DX: R07.9 Chest pain, unspecified (principal); R42 Dizziness and giddiness; I10 Essential (primary) hypertension; F17.200 Nicotine dependence, unspecified, uncomplicated; Z79.899 Other long term (current) drug therapy
CPT/HCPCS: 70450; 71046; 80048; 84484; 85025; 93005; 99285; A4216

== ENCOUNTER 2019-08-21 18:10 | Observation (INO) | payer BC, SELFPAY ==
[2019-08-21 18:11] VITALS: BP 167/92; PULSE 107; RESP 16; TEMP 37.4; O2SAT 99; BMI 29.0
[2019-08-21 19:14] VITALS: PULSE 83; RESP 16
--- NOTE | 2019-08-21 19:18 | RAD_ITS ---
STUDY: X-RAY CHEST REASON FOR EXAM: Male, 44 years old. Chest pain TECHNIQUE: Frontal view of the chest was performed COMPARISON: 24 March 2019 FINDINGS: Lungs are clear. There is no pneumothorax, pulmonary edema, pleural effusions or cardiomegaly. Osseous structures are intact. There is no gas under the diaphragms. [ ] RAD/Chest 1 View (Portable) IMPRESSION: 1. No acute cardiorespiratory disease. [ ] Electronically Signed: Chris Diamond, at 20:10 EST Tel , Service support ,
--- NOTE | 2019-08-21 19:18 | EKG12_ITS ---
Test Reason : CP Blood Pressure : / mmHG Vent. Rate : 107 BPM Atrial Rate : 107 BPM P-R Int : 164 ms QRS Dur : 098 ms QT Int : 326 ms P-R-T Axes : 010 068 -31 degrees QTc Int : 435 ms Sinus tachycardia Cannot rule out Inferior infarct , age undetermined Abnormal ECG Confirmed by JAYLAN MAYER, LOCO ([id number]), editorial cartoonist FARRAH WORTHINGTON ([id number]) on 08/24/2019 10:01:56 AM Referred By: David Caicedo Confirmed By:LOCO TIAN MD
[2019-08-21 19:24] LABS: Absolute Neutrophil Count 5.7 X10^3/uL (2.0-7.7); Basophil# 0.02 X10^3/uL; Basophil% 0.2 % (0-1); Eosinophil# 0.09 X10^3/uL; Eosinophils% 1.1 % (0-5); Hematocrit 41.8 % (40-54); Hemoglobin 14.3 g/dL (13.0-16.5); Lymphocyte % 25.3 % (19-41); Mean Corp Hgb Conc 34.2 g/dL (32-36); Mean Corpuscular Hgb 29.1 pg (27.0-32.0); Monocyte# 0.34 X10^3/uL; Monocyte% 4.1 % (0-10); NRBC Flagged by Analyzer 0 % (0-5); Neutrophil # 5.69 X10^3/uL (2.7-7.7); Neutrophil % 68.7 % (47-70); Platelet Count 292 K/mm3 (150-450); RBC Distribution Width CV 12.4 % (11.6-14.6); Red Blood Count 4.92 M/mm3 (4.6-6.2); White Blood Count 8.3 K/mm3 (4.4-11.0)
[2019-08-21] MEDS: Aspirin 81 MG TAB.CHEW 324 MG PO (19:28)
[2019-08-21 19:38] LABS: Anion Gap 5 (5-15); BUN 10 mg/dL (7-18); Calcium,Total 8.6 mg/dL (8.5-10.1); Chloride 107 mmol/L (98-107); Creatinine, Serum 1.11 mg/dL (0.70-1.30); EST Glomerular Filtration Rate 76 mL/min (>60); Est Glom Filt Rate - Afr Amer 92 mL/min (>60); Glucose 117 mg/dL (74-106); Potassium 3.7 mmol/L (3.5-5.1); Sodium Level 141 mmol/L (136-145)
[2019-08-21 20:00] VITALS: BP 132/91; PULSE 78; RESP 18
[2019-08-21 21:00] VITALS: BP 137/83; PULSE 78; RESP 14
--- NOTE | 2019-08-21 21:19 | ED.VISSUMM ---
- ER Visit Summary Date of Service: 08/21/19 Chief Complaint: Chest pain History of Present Illness: The patient is a 44 M who presents with chest pain that began 2 hours ago. Patient describes as a tightness. Patient states it began while he was at work. Patient states he was doing some exertional activity when it began. Patient states the pain resolved just after he came to the emergency department. Patient states nothing makes it better or worse. Patient states the pain is over the left chest. Patient states the pain radiates down his left arm and he has some tingling in his left arm and hand. Patient has a history of hypertension and is a smoker. Physical Examination: Vital signs are stable. Patient is afebrile. Patient is in no acute distress. Oral mucosa is pink and moist. Neck is supple. Trachea is midline. There is no JVD noted. Heart was regular rate and rhythm. Lungs are clear and equal bilaterally. Abdomen is soft. Bowel sounds are normal. There is no tenderness. There is no rebound or guarding noted. Skin is warm dry. Cranial nerves II through XII are intact. There are no focal motor or sensory deficits noted. Extremities are intact. There is no calf tenderness or edema. Test Results: EKG shows normal sinus rhythm with a rate of 107. There are nonspecific ST-T wave changes and II, III, aVF, V5, and V6. These are new compared to previous EKG dated 03/24/2019. CBC, basic metabolic profile, troponin were obtained and were normal. Portable chest x-ray was obtained. There is no acute cardiopulmonary process. This was interpreted by the radiologist and myself. Emergency Department Course and Treatment: Patient was given aspirin here in the emergency department. Patient had no further episodes of chest pain here in the emergency department. Given his EKG changes and history, I feel that he would benefit from inpatient admission for evaluation of his chest pain. Patient has a HEART score of 4. It has been more than 1 year since his last stress test. His last stress test was May 2018. This was normal. Case was discussed with the hospitalist. He will admit the patient to his service. Patient understands and is agreeable with the plan. All questions were answered. Disposition: Admit for observation Impression: 1. Chest pain This note was generated with [employer] dictation software. It may contain incorrect words, spelling, and punctuation that were not noted in review of the chart prior to signing ED Disposition - Plan for ED Patient: Disposition: Acute Care Hospital [facility] Diagnosis: Chest pain Referrals: Madhu Figueroa MD [Primary Care Provider] -
--- NOTE | 2019-08-21 22:15 | PCM.HP.STD ---
Problem List (1) Anxiety Status: Chronic (2) Tobacco abuse Status: Chronic (3) Hypertension Status: Chronic (4) Chest pain Status: Acute History of Present Illness Date of Admission: 08/21/19 Chief Complaint: Chest pain. The patient is a 44 year old M patient with past medical history as mentioned above presented to the emergency room because of chest pain. His symptoms started this evening with chest pain, left-sided chest pain, described as chest tightness, 4-5 out of 10 in severity, radiates down to his left upper extremity, associated with nausea and diaphoresis, lasted for several minutes and without aggravating or relieving factors. Patient mentioned that he had episode of chest pain this past Friday which was described as above and lasted longer than this time which lasted for couple of hours. Denied associated shortness of breath, syncope or presyncope. This patient was admitted back in May, for chest pain and he underwent nuclear stress test that was negative for stress-induced myocardial ischemia. He came to the emergency department on February, with the same complaint of chest pain, had work-up done in the ED that was unremarkable and he was discharged home. Today, he came back with chest pain again. In the emergency department, his vital signs were stable. His routine blood work was unremarkable. Chest x-ray showed no acute findings. EKG revealed sinus tachycardia, heart rate was around 100, showed minimal T wave inversion in lead II, deep T wave inversion in leads III and aVF as well as T wave inversion in leads V5 and V6 and those changes are new compared to EKG from February 2019. He is being admitted for chest pain/unstable angina for evaluation. Past Medical History Past Medical History (Chronic Problems): Chronic Problems Anxiety (Chronic) Tobacco abuse (Chronic) Hypertension (Chronic) Allergies No Known Allergies Allergy (Verified 08/21/19 19:01) Home Medications: Ambulatory Orders Medication Instructions Recorded Lisinopril [Prinivil] 10 mg PO DAILY #30 tablet 06/10/18 Surgical History: no surgical history Psychiatric History: Anxiety Smoking Status: Current every day smoker Tobacco Use: Cigarettes Alcohol: Rare Drugs: None - *Family History Maternal History Items: Hypertension Paternal History Items: Hypertension Review of Systems Constitutional: Denies: Anorexia, Chills, Fever, Weakness Eyes: Denies: Blurred vision, Double vision, Drainage, Redness HEENT: Denies: Difficulty Hearing, Ear Pain, Eye Pain, Nasal Congestion, Sore Throat Cardiovascular: Reports: Chest Pain, Chest Tightness, Light Headedness, Palpitations. Denies: Edema, Heaviness, Syncope Respiratory: Denies: Cough, Pleuritic Pain, Shortness of Breath, Sputum production, Wheezing Gastrointestinal: Reports: Nausea. Denies: Abdominal Pain, Constipation, Diarrhea, Vomiting Genitourinary: Denies: Dysuria, Frequency, Hematuria Musculoskeletal: Denies: Arm Pain, Back Pain, Foot Pain Skin: Denies: Dryness, Rash Neurological: Denies: Balance problems, Double vision, Change in Speech, Slurred speech, Confusion, Headaches, Incoordination Psychiatric: Reports: Anxiety. Denies: Depression Endocrine: Denies: Change in Body Habitus, Polydipsia, Polyuria VTE Information - Inpt Only VTE Present on Admission: No VTE Mechan Device Prophylaxis: None VTE Pharm Prophylaxis ordered?: No Patient Problems: Active and Suspected Problems Unstable angina (Acute) Chest pain (Acute) - Physical Exam Vitals/I&O's: Vital Signs Temp Pulse Resp BP Pulse Ox 99.4 F H 78 14 137/83 H 99 08/21/19 18:11 08/21/19 21:00 08/21/19 21:00 08/21/19 21:00 08/21/19 18:11 Oxygen Delivery Method Room Air Weight: 185 lb Body Mass Index (BMI) 29.0 General: Alert, Oriented x3, Cooperative, No apparent distress HEENT: Atraumatic, PERRLA, EOMI, Normocephalic Oral: Moist Mucosa, No Gingival or Mucosal Lesions/ Ulcerations Neck: Supple, No JVD, Negative Carotid Bruits, Trachea Midline, Thyroid Normal Size and Texture Lungs: Clear to auscultation, Normal air movement, No wheeze, No rales Cardiovascular: Regular rate, Regular Rhythm, Normal S1, Normal S2, No murmurs, PMI Normal Abdomen: Bowel Sounds Present, Soft, Non Tender, Non-Distended, No Hepato-splenomegaly Extremities: No clubbing, No cyanosis, No edema Skin: No rashes, No breakdown Lymphatic: No Cervical, Supraclavicular, or Inguinal Adenopathy Neurological: Cranial nerves II-XII grossly intact, Motor Exam 5/5 strength throughout Psych/Mental Status: Normal Affect, Appropriate, Alert and oriented to time, place, person, mood and affect Laboratory Results 08/21/19 18:45: WBC 8.3, RBC 4.92, Hgb 14.3, Hct 41.8, MCV 85.0, MCH 29.1, MCHC 34.2, RDW Std Deviation 38.0, RDW Coeff of Candice 12.4, Plt Count 292, MPV 10.0, Immature Gran % (Auto) 0.600, Neut % (Auto) 68.7, Lymph % (Auto) 25.3, Edwards % (Auto) 4.1, Eos % (Auto) 1.1, Baso % (Auto) 0.2, Absolute Neuts (auto) 5.7, Absolute Lymphs (auto) 2.10, Nucleated RBC % 0 08/21/19 18:45: Sodium 141, Potassium 3.7, Chloride 107, Carbon Dioxide 29.0, Anion Gap 5, BUN 10, Creatinine 1.11, Estim Creat Clear Calc 79.40, Est GFR (MDRD) Af Amer 92, Est GFR (MDRD) Non-Af 76, BUN/Creatinine Ratio 9.0 L, Glucose 117 H, Calcium 8.6, Troponin I < 0.015 Clinical Impression(s) from Imaging Studies Chest X-Ray 08/21/19 19:18 IMPRESSION: 1. No acute cardiorespiratory disease. [ ] Electronically Signed: Chris Diamond, at 20:10 EST Tel , Service support , Current Medications Nitroglycerin (Nitrostat) 0.4 mg SUBLINGUAL Q5M PRN PRN Reason: Chest pain Assessment/Plan All Active Problems Unstable angina (Acute) Chest pain (Acute) This is a 44 years old male patient presented to the emergency room because of chest pain, found to have EKG changes which are new and he is being admitted for unstable angina for evaluation. #1 chest pain/unstable angina: Risk factors are smoking and hypertension. EKG revealed new changes including minimal T wave inversion in lead II, deep T wave inversion in leads III and aVF also T wave inversion in leads V5 and V6 and those changes are new. No acute ST elevation. Troponin is negative. Chest x-ray showed no acute findings. Patient had stress test back on May, that was negative for stress-induced myocardial ischemia. Patient came back on February, for chest pain, he was discharged from the ED because EKG and troponin were unremarkable. Patient received loading dose of aspirin in the ED. I discussed the case with cardiology and recommended cardiac catheterization, loading dose of Plavix, and therapeutic Lovenox. Plan: Admit to PCU, cardiac monitoring, serial cardiac enzymes, Repeat EKG tomorrow morning, start therapeutic Lovenox twice daily, loading dose of aspirin, start baby aspirin, Lipitor, fasting lipid profile, cardiology consult. Patient will go for cardiac catheterization on Friday. #2 hypertension: Blood pressure stable, continue lisinopril. #3 tobacco abuse: NicoDerm patch. #4 anxiety disorder: Not on medicine at this time. Patient is anxious. Plan to start Xanax as needed, Ambien as needed. #5 DVT prophylaxis: He will be on therapeutic Lovenox twice daily. This note was generated with [employer] dictation software. It may contain incorrect words, spelling, and punctuation that were not noted in checking the note before signing. Code Visit Inpatient E&M: 51629 Init Hosp L3
[2019-08-21 22:30] VITALS: PULSE 75
[2019-08-21 22:45] VITALS: BP 140/84; PULSE 74; PULSE 76; RESP 18; TEMP 36.6; O2SAT 99
[2019-08-21 22:48] VITALS: BMI 28.5
[2019-08-21 23:04] VITALS: BMI 28.5
--- NOTE | 2019-08-21 23:21 | EKG12_ITS ---
Test Reason : CP ADMIT Blood Pressure : / mmHG Vent. Rate : 078 BPM Atrial Rate : 078 BPM P-R Int : 166 ms QRS Dur : 100 ms QT Int : 362 ms P-R-T Axes : 022 040 015 degrees QTc Int : 412 ms Normal sinus rhythm with sinus arrhythmia Normal ECG Confirmed by TACO MAYER, CHERYL ([id number]), features editor PRINCE BUCHANAN ([id number]) on 08/26/2019 11:47:27 AM Referred By: David Caicedo Confirmed By:CHERYL ESPAÑA MD
[2019-08-21] MEDS: Clopidogrel Bisulfate 300 MG Tablet PO (23:36)
[2019-08-21] MEDS: Enoxaparin 80 MG/0.8 ML Syringe SC (23:36)
[2019-08-21] MEDS: 0.9% Normal Saline 1,000 ML 75 ML IV (23:41)
[2019-08-22] VITALS (12 sets, daily range): BP systolic 116–141; BP diastolic 71–83; PULSE 60–89; RESP 16–18; TEMP 36.1–36.7; O2SAT 97–100
--- NOTE | 2019-08-22 05:55 | EKG12_ITS ---
Test Reason : AM EKG Blood Pressure : / mmHG Vent. Rate : 061 BPM Atrial Rate : 061 BPM P-R Int : 164 ms QRS Dur : 112 ms QT Int : 398 ms P-R-T Axes : 025 043 013 degrees QTc Int : 400 ms Normal sinus rhythm Normal ECG Confirmed by TACO MAYER, CHERYL ([id number]), web content editor PRINCE BUCHANAN ([id number]) on 08/26/2019 11:27:54 AM Referred By: David Caicedo Confirmed By:CHERYL ESPAÑA MD
[2019-08-22 06:48] LABS: Cholesterol 228 mg/dL (200); High Density Lipoprotein 25 mg/dL; Triglycerides 400 mg/dL
--- NOTE | 2019-08-22 08:21 | PN_ITS ---
Patient Problems: Active and Suspected Problems Unstable angina (Acute) Chest pain (Acute) Reason for Visit: Chest pain Subjective: Patient seen and examined. He denies any chest pain, or dizziness or palpitations. He is going for cardiac cath in am Vitals/I&O's: Vital Signs Temp Pulse Resp BP Pulse Ox 98.1 F 69 16 128/71 H 98 08/22/19 03:05 08/22/19 03:10 08/22/19 03:05 08/22/19 03:05 08/22/19 03:05 Oxygen Delivery Method Room Air Weight: 82.5 kg Body Mass Index (BMI) 28.5 Intake and Output for Last 24 Hours 08/20/19 08/21/19 08/22/19 23:59 23:59 23:59 Intake Total 60 / 60 120 / 120 Balance 60 / 60 120 / 120 General: Alert, Oriented x3, Cooperative, No apparent distress HEENT: Atraumatic, PERRLA, EOMI, Normocephalic Oral: Moist Mucosa Neck: Supple Lungs: Clear to auscultation, Normal air movement Cardiovascular: Regular rate, Regular Rhythm, Normal S1, Normal S2, No murmurs Abdomen: Bowel Sounds Present, Soft, Non Tender, Non-Distended, No Hepato- splenomegaly Extremities: No edema Skin: No rashes, No breakdown Musculoskeletal: No Tenderness to Palpation of Joints or Extremities Lymphatic: No Cervical, Supraclavicular, or Inguinal Adenopathy Neurological: Cranial nerves II-XII grossly intact, Neuro grossly intact Psych/Mental Status: Normal Affect, Appropriate Laboratory Results 08/21/19 11:25: Troponin I < 0.015 08/21/19 18:45: WBC 8.3, RBC 4.92, Hgb 14.3, Hct 41.8, MCV 85.0, MCH 29.1, MCHC 34.2, RDW Std Deviation 38.0, RDW Coeff of Candice 12.4, Plt Count 292, MPV 10.0, Immature Gran % (Auto) 0.600, Neut % (Auto) 68.7, Lymph % (Auto) 25.3, [place] % (Auto) 4.1, Eos % (Auto) 1.1, Baso % (Auto) 0.2, Absolute Neuts (auto) 5.7, Absolute Lymphs (auto) 2.10, Nucleated RBC % 0 12/28/19 18:45: Sodium 141, Potassium 3.7, Chloride 107, Carbon Dioxide 29.0, Anion Gap 5, BUN 10, Creatinine 1.11, Estim Creat Clear Calc 79.40, Est GFR (MDRD) Af Amer 92, Est GFR (MDRD) Non-Af 76, BUN/Creatinine Ratio 9.0 L, Glucose 117 H, Calcium 8.6, Troponin I < 0.015 08/22/19 02:05: Troponin I < 0.015 08/22/19 05:08: Triglycerides 400 H, Cholesterol 228 H, LDL Cholesterol TNP, VLDL Cholesterol TNP, HDL Cholesterol 25 L 08/22/19 05:09: Troponin I < 0.015 Current Medications Acetaminophen (Tylenol) 650 mg PO Q6H PRN PRN PRN Reason: Pain Score 1-5/Temp > 100.7 F Alprazolam (Xanax) 0.5 mg PO BID PRN PRN PRN Reason: ANXIETY/INSOMNIA Aspirin (Ecotrin) 81 mg PO DAILY@0800 [facility] Atorvastatin Calcium (Lipitor) 80 mg PO QHS [facility] Enoxaparin Sodium (Lovenox) 80 mg SC Q12 [facility] Last Admin: 08/21/19 23:36 Dose: 80 mg Documented by: Sodium Chloride () 1,000 mls @ 75 mls/hr IV .[id number] [facility] Stop: 08/22/19 12:03 Last Admin: 08/21/19 23:41 Dose: 75 mls/hr Documented by: Lisinopril (Zestril) 20 mg PO DAILY [facility] Morphine Sulfate () 1 mg IV Q4H PRN PRN PRN Reason: Pain Score 6-10/10 Nicotine (Nicoderm Cq (Pbkc)) 21 mg TRANSDERM. DAILY [facility] Nitroglycerin (Nitrostat) 0.4 mg SUBLINGUAL Q5M PRN PRN Reason: CARDIAC/CHEST PAIN Ondansetron HCl (Zofran) 4 mg IV Q8H PRN PRN PRN Reason: NAUSEA/VOMITING Sodium Chloride () 10 - 40 ml IV UD PRN PRN Reason: SALINE FLUSH Zolpidem Tartrate (Ambien (Generic)) 5 mg PO QHS PRN PRN PRN Reason: INSOMNIA Medical Necessity - Tobacco Use Smoking Status: Current every day smoker Tobacco Use: Cigarettes Assessment/Plan All Active Problems Unstable angina (Acute) Chest pain (Acute) 1. Unstable angina, abnormal EKG, Admitting EKG revealed new changes with some T wave inversion in lead II, deep T wave inversion in leads III, aVF,V5 and V6 EKG today shows no acute ST-T changes. Troponins are negative Aspirin, Plavix, statin, lisinopril, beta-nara Cardiology consulted; planning on cardiac cath in am 2. Hyperlipidemia, uncontrolled, will start on high-dose statins 3. Hypertension, controlled, continue lisinopril and metoprolol 4. DVT PPx- Lovenox SC Code Visit Inpatient E&M: 53075 Subs Hosp L2
[2019-08-22] MEDS: Lisinopril 20 MG Tablet PO (08:54)
[2019-08-22] MEDS: Aspirin E.C. 81 MG Tablet PO (08:54)
[2019-08-22] MEDS: Enoxaparin 80 MG/0.8 ML Syringe SC ×2 (10:24→21:10)
--- NOTE | 2019-08-22 10:52 | CDU_ITS ---
Reason For Study: Bruit Rt. Velocities/BP Lt. Velocities/BP Prox CCA 111.2/16 cm/sec. Prox CCA 95.9/20.1 cm/sec. Mid CCA 107.3/18.6 cm/sec. Mid CCA 100.3/20.1 cm/sec. Dist CCA 89.1/20 cm/sec. Dist CCA 106.9/26.7 cm/sec. Prox ICA 77.3/20.6 cm/sec. Prox ICA 92.8/20.4 cm/sec. Mid ICA 71.8/20.6 cm/sec. Mid ICA 86.2/29.2 cm/sec. Dist ICA 101/33.4 cm/sec. Dist ICA 103.8/33.6 cm/sec. Rt. ICA/CCA = 0.9. Lt. ICA/CCA = 1.0. Prox ECA 152.1/11.5 cm/sec. Prox ECA 141.1/13.8 cm/sec. Rt. Vert. 43.7/13.5 cm/sec. Lt. Vert. 84.6/27.9 cm/sec. Right Extracranial There is intimal thickening but no significant atherosclerotic plaque noted in the right common carotid artery. There is intimal thickening but no significant atherosclerotic plaque noted in the right internal carotid artery. There is no significant atherosclerotic plaque noted in the right external carotid artery. Antegrade flow is noted in the right vertebral artery. Left Extracranial There is intimal thickening but no significant atherosclerotic plaque noted in the left common carotid artery. There is homogeneous, smooth atherosclerotic plaque noted in the left internal carotid artery. There is intimal thickening but no significant atherosclerotic plaque noted in the left external carotid artery. Antegrade flow is noted in the left vertebral artery. Procedure Carotid Duplex 33724. Exam performed portable in patient room. Interpretation Summary No hemodynamically significant plaque or stenosis proximal right internal carotid artery with <50% stenosis <50% stenosis right external carotid Minimal smooth homogeneous plaque proximal left internal carotid with <50% stenosis. <50% stenosis left external carotid Patent, antegrade, <50% stenosis bilateral vertebrals Ordering Physician: Jones Swanson Referring Physician: Elliot Figueroa Performed By: Susanne Vanessa RVT
--- NOTE | 2019-08-22 10:53 | CON.PCM_ITS ---
Problem List (1) Unstable angina Status: Acute (2) Anxiety Status: Chronic (3) Tobacco abuse Status: Chronic (4) Hypertension Status: Chronic (5) Chest pain Status: Acute Reason for Consult Date of Consultation: 08/22/19 Reason for Consultation: Chest pain, tobacco abuse, hypertension, pulsating s ensation in his head on the right side, anxiety History of Present Illness: The patient is a 44 year old somewhat anxious tobacco using gentleman of about 30 pack years currently smoking about 1 pack of cigarettes per day, nondiabetic, no previous known cardiac disease, CVA but does have hypertension unknown cholesterol. Patient is complained several times of substernal chest pain, the most recent of which was February 2018 at which time he had a treadmill/MPI supervised by Dr. Ramos which was read as negative for ischemia at a high workload. 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 In addition he had some chills but no fevers. His pain was nonradiating and he detected a racing heartbeat. He had no associated shortness of breath but did have nausea but no vomiting. He sought medical attention at [facility] ER where he was found to be hypertensive. An EKG showed normal sinus rhythm with what appeared to be new inferior lateral T wave inversion and ST segment subtle depression. Patient states that his symptoms resolved prior to arrival in the emergency room. He did not appear to receive any nitroglycerin. His troponins have been negative x4. On further history denies any recent illnesses, cough, fever, but does complain of some recent chills, and also interestingly complains of a constant pulsation in the right side of his head which is been going on for many years which apparently completely resolves when he turns his head to the right. I cannot detect any carotid bruits at least by physical exam. His most recent stress test in February 2018 is as follows: Normal exercise myocardial perfusion stress test at a high workload. Preserved ejection fraction [] Past Medical History Allergies/Adverse Reactions: Allergies No Known Allergies Allergy (Verified 08/21/19 19:01) Home Medications: Ambulatory Orders Medication Instructions Recorded Lisinopril [Prinivil] 20 mg PO DAILY 08/21/19 Past Medical History (Chronic Problems): Chronic Problems Anxiety (Chronic) Tobacco abuse (Chronic) Hypertension (Chronic) Surgical History: no surgical history Psychiatric History: Anxiety - *Family History Maternal History Items: Hypertension Paternal History Items: Hypertension Smoking Status: Current every day smoker Tobacco Use: Cigarettes Alcohol: Rare Drugs: None Review of Systems - Review of Systems General: Reports: Chills. Denies: Fever, Fatigue, Night Sweats Cardiovascular: Reports: Chest Discomfort with Exertion, Chest Pressure, Chest Tightness, Chest Heaviness. Denies: Chest Discomfort, Shortness of Breath, Orthopnea, PND, Peripheral Edema, Palpitations, Lightheadedness, Dizziness, Near Syncope, Syncope Respiratory: Denies: Cough, Sputum Production, Hemoptysis Gastrointestinal: Denies: Hematemesis, Hematochezia, Melena Genitourinary: Denies: Dysuria, Hematuria Skin: Denies: Rash Subjectve: Patient laying in bed, no acute distress. Telemetry negative overnight. Objective: Vital Signs Temp Pulse Resp BP Pulse Ox 97.0 F L 60 16 141/74 H 99 08/22/19 08:50 08/22/19 08:50 08/22/19 08:50 08/22/19 08:50 08/22/19 08:50 Oxygen Delivery Method Room Air Weight: 181 lb 14.102 oz Body Mass Index (BMI) 28.5 Intake and Output for Last 24 Hours 08/20/19 08/21/19 08/22/19 23:59 23:59 23:59 Intake Total 60 / 60 120 / 120 Balance 60 / 60 120 / 120 General: Awake, Alert, Oriented x 3 HEENT: PERRL, EOMI, Sclera Non Icteric Neck: Supple, Good ROM, No Lymph Node Enlargement Lungs: Clear to auscultation Cardiovascular: Regular Rhythm, Normal S1, Normal S2, No Murmurs, No Rubs, No Gallops Vascular: No Carotid Bruits, Normal Femoral Pulses, Normal Radial Pulses, Normal Dorsalis Pedal Pulse, Normal Posterior Tibial Pulses Abdomen: Bowel Sounds Present, Soft, Non Tender, No HSM, No Organomegaly Extremities: No Cyanosis, No Clubbing, No edema Neurological: No Focal Motor or Sensory Deficit 08/21/19 11:25: Troponin I < 0.015 08/21/19 18:45: WBC 8.3, RBC 4.92, Hgb 14.3, Hct 41.8, MCV 85.0, MCH 29.1, MCHC 34.2, Plt Count 292, MPV 10.0, Immature Gran % (Auto) 0.600, Neut % (Auto) 68.7, Lymph % (Auto) 25.3, [place] % (Auto) 4.1, Eos % (Auto) 1.1, Baso % (Auto) 0.2, Absolute Neuts (auto) 5.7, Nucleated RBC % 0 08/21/19 18:45: Sodium 141, Potassium 3.7, Chloride 107, Carbon Dioxide 29.0, Anion Gap 5, BUN 10, Creatinine 1.11, Est GFR (MDRD) Af Amer 92, Est GFR (MDRD) Non-Af 76, BUN/Creatinine Ratio 9.0 L, Glucose 117 H, Calcium 8.6, Troponin I < 0.015 08/22/19 02:05: Troponin I < 0.015 08/22/19 05:08: Triglycerides 400 H, Cholesterol 228 H, LDL Cholesterol TNP, VLDL Cholesterol TNP, HDL Cholesterol 25 L 08/22/19 05:09: Troponin I < 0.015 Rhythm: EKG: ECHO: Stress Test: Cardiac Cath: PCI: CT Surgery: Holter monitor: EPS: PPM: CXR: Chest CT Scan: Assessment/Plan 1. Chest pain: The patient has had several episodes of recurrent chest pain symptoms, now presents with severe crushing substernal chest pressure with numbness down his left arm, no associated shortness of breath, and dynamic EKG changes suggestive of inferior and possible lateral ischemia. His troponins have been negative x4. He has had no further chest pain since admission. Patient had a walking nuclear stress test in May 2018 which was negative for inducible ischemia at a high workload, and he claims that he had a repeat stress test in February 2019 however I do not have those results. He claims that the stress test was negative at that time. Given the patient's constellation of symptoms, recurrent chest pain, heavy smoker, hypertension, hypertriglyceridemia, and LDL that is too numerous to count, I recommend he undergo a diagnostic left heart catheterization to confirm/deny the presence of significant coronary Klooster disease that could be causing his symptoms. He will be loaded with 300 mg of Plavix x1 followed by 75 mg a day as well as baby aspirin 81 mg p.o. daily. The risk/benefits of the procedure were thoroughly explained to the patient, including specific attention to lack of onsite surgical backup, and informed consent was obtained. In addition he will continue lisinopril, and we will start the patient on Lopressor 25 mg p.o. twice daily for heart rate control. If the patient has no significant coronary Klooster disease, I would look for noncardiac reasons for his chest pain such as anxiety. Just to be sure, given his chills I would recommend a hs-CRP to evaluate for possible pericarditis. 2. Hyperlipidemia: Patient has hypertriglyceridemia, and would recommend a direct LDL evaluation. Would recommend starting the patient on Lipitor 80 mg p.o. nightly and repeating lipid profile in 6 weeks time. 3. Tobacco cessation: I had a long and thorough discussion regarding tobacco cessation, and strongly recommended the patient discontinue all tobacco products. 4. Peripheral vascular disease: The patient complains of a throbbing sensation in the right side of his head only when he is looking forward, which completely resolves after he looks to the right. I examined the patient and found no carotid bruits however this does not exclude the possibility of unique carotid anatomy in his internal carotid system. Would recommend starting with a ultrasound of both carotids, followed by possible CTA of his head and neck to determine if he has any unique carotid features that may be explaining his sensation of pulsation in the right side of his head only. 5. Thank you very much for the opportunity to participate in the cardiac care of your patient. Consultation time took place between 8:30 AM and 9 AM. Code Visit Inpatient E&M: 93604 Init Hosp L2
--- NOTE | 2019-08-22 10:59 | ECHOD_ITS ---
Reason For Study: CP Procedure This was a 2D Doppler, Color Flow transthoracic echocardiogram. Exam performed portable in patient room. Left Ventricle Mild concentric left ventricular hypertrophy. The estimated ejection fraction is 65 %. Normal diastology for age. No regional wall motion abnormalities noted. Right Ventricle Normal size and thickness. Normal systolic function. Atria Normal left atrium. Normal right atrium. Normal atrial septum. Mitral Valve The mitral valve is structurally normal. No prolapse or stenosis seen. Tricuspid Valve Normal tricuspid valve. Unable to estimate RV systolic pressure due to insufficient tricuspid regurgitant envelope. Aortic Valve Normal aortic valve. Pulmonic Valve Normal pulmonic valve. Great Vessels Normal aortic root. Normal arch. Normal inferior vena cava. Inferior vena cava collapse with sniff. Pericardium/Pleural No pericardial effusion. MMode/2D Measurements & Calculations LVIDd: 4.5 cm IVSd: 1.2 cm Ao root diam: 3.4 cm LVIDs: 2.8 cm LVPWd: 1.3 cm LA dimension: 3.5 cm RVDd: 4.1 cm FS: 38.0 % LAV(MOD-bp): 37.9 ml LA A4 area: 16.0 cm2 RA A4 area: 12.0 cm2 LAV(MOD-bp) Indexed: 19.5 ml/m2 LAV(MOD-sp2): 33.7 ml LAV(MOD-sp4): 34.5 ml Time Measurements MV dec time: 0.25 sec Doppler Measurements & Calculations MV E max teodoro: 61.9 cm/sec Lat Peak E' Teodoro: 12.6 cm/sec Med Peak E' Teodoro: 10.5 cm/sec MV A max teodoro: 55.1 cm/sec E/E' lat: 4.9 E/E' med: 5.9 MV E/A: 1.1 MV V2 max: 69.5 cm/sec MV P1/2t max teodoro: 70.2 cm/sec Ao V2 max: 134.1 cm/sec MV max P.9 mmHg MV P1/2t: 96.7 msec Ao max P.2 mmHg MV V2 mean: 39.7 cm/sec MV dec slope: 212.7 cm/sec2 Ao V2 mean: 83.4 cm/sec MV mean P.73 mmHg MVA(P1/2t): 2.3 cm2 Ao mean P.3 mmHg MV V2 VTI: 20.7 cm Ao V2 VTI: 22.3 cm LV V1 max: 101.1 cm/sec PA V2 max: 124.2 cm/sec LV V1 max P.1 mmHg LV V1 mean P.7 mmHg LV V1 mean: 58.5 cm/sec LV V1 VTI: 17.3 cm Interpretation Summary Mild concentric left ventricular hypertrophy. The estimated ejection fraction is 65 %. Normal diastology for age. Unable to estimate RV systolic pressure due to insufficient tricuspid regurgitant envelope. There is no comparison study available. Ordering Physician: Jones Swanson Referring Physician: David Caicedo Performed By: Julius Posey RCS
[2019-08-22 12:36] LABS: CRP, High Sensitivity Cardiac 2.04 mg/L
[2019-08-22] MEDS: Atorvastatin Calcium 80 MG Tablet PO (21:08)
[2019-08-22] MEDS: Metoprolol Tartrate 25 MG Tablet PO (21:08)
[2019-08-23] VITALS (20 sets, daily range): BP systolic 105–131; BP diastolic 61–76; PULSE 51–76; RESP 14–18; TEMP 36.3–36.6; O2SAT 96–99
[2019-08-23] MEDS: Metoprolol Tartrate 25 MG Tablet PO (05:07)
[2019-08-23] MEDS: Aspirin E.C. 81 MG Tablet PO (05:07)
[2019-08-23] MEDS: Clopidogrel Bisulfate 75 MG Tablet PO (05:07)
[2019-08-23] MEDS: DiphenhydrAMINE 25 MG Capsule 50 MG PO (05:07)
[2019-08-23] MEDS: Lisinopril 20 MG Tablet PO (05:08)
[2019-08-23] MEDS: 0.9% Saline Lock 10 ML Syringe IV ×3 (05:10→09:50)
--- NOTE | 2019-08-23 08:06 | NURSING ---
Report given to cardiovascular Rehan RN @ pt bedside at 0805.
--- NOTE | 2019-08-23 08:48 | CL.D_ITS ---
Patient Name: JOSIE SALCEDO Study Date: 08/23/2019 Performing: Jones Swanson MD Ht: 66.92 inches 170 cm : 1975 Wt: 182.98 lbs 83 kg Age: 44 Gender: male BSA: 1.95 PROCEDURE(S) PERFORMED BT15-TRA/COR/LV CLINICAL PROFILE AND INDICATIONS Indications: ACS <= 24 hrs, New Onset Angina <= 2 months, Worsening Angina, Suspected CAD, Cardia c Arrythmia Heart Failure: None Stress/Imaging Date: 06/10/2018Stress Test with SPECT MPI: Negative Angina Classification Anginal Classification w/in 2 Weeks: CCS IV CAD Presentations: Unstable angina. Other: Palpitations Comorbidities/Risk Factors: Hypertension Dyslipidemia Current/Recent Smoker (< 1year) CONCLUSIONS Normal LV size, wall motion,and systolic function Perserved Left Ventricular systolic function with normal EDP LVEF: by LV gram 65 % Non obstructive coronary arteries RECOMMENDATIONS Management as per referring Store Shopper Tobacco cessation, d/c plavix, cont baby asa, 30 day event monitor. Manual sheath removal; d/w Dr Guy. DESCRIPTION OF PROCEDURE The patient arrived to the procedure lab. The risks and benefits of the procedure as well as a full d escription of our services here and current unavailability of surgical backup were fully explained to the patient and/or their significant other prior to the catheterization. The Timeout was completed, verifying the correct patient and procedure. The patient's procedural site was prepped and draped in the usual fashion. Local anesthetic was given subcutaneously to right groin region with Lidocaine 2%. Using a modified Seldinger technique, arterial access was obtained via the right femoral artery, a 4 Fr sheath was inserted Left Coronary Artery selective angiography was performed in multiple views us ing a 4 Fr. JL5 catheter. Right Coronary Artery selective angiography was then performed in multiple views using a 4 Fr. 3DRC catheter. Left Ventriculography was performed in FORBES projection using a 4 Fr . Pigtail catheter. LV to AO pullback pressures were then recorded.The arterial sheath was pulled and manual compression applied until hemostasis is achieved. CORONARY ANGIOGRAPHY DOMINANCE: Right Dominant LEFT HEART ASSESSMENT Left Ventricular Ejection Fraction: by LV Gram 65 % Normal LV wall motion Normal Left Ventricular systolic function LVEDP: 6 mmHg Normal Left Ventricular End Diastolic Pressure LEFT MAIN: Angiographically normal LEFT ANTERIOR DESCENDING ARTERY: Angiographically normal CIRCUMFLEX ARTERY: Angiographically normal RIGHT CORONARY ARTERY: PROX RCA: Mild luminal irregularities less than 30% COMPLICATIONS No Complications PROCEDURE MEDICATIONS Versed 1 mg IV Oxygen: 2 L/min via nasal cannula IV Bolus: .9 NaCl 150 ml total 08/23/2019 08:25:04 SUMMARY OF HEMODYNAMIC DATA Time AIR REST ECG 08:14:33 AO 110/61 (78) SA 08:25:45 LV 102/-5, 8 08:31:03 LV 102/-10, 6 08:31:09 LVp 101/-11, 6 08:31:14 AOp 105/52 (72) 08:31:19 Signed By oJnes Swanson MD On 08/23/2019 8:47:41 AM Jones Swanson MD
--- NOTE | 2019-08-23 09:08 | CASEMGMT ---
According to the [place] website, the following are in-network tertiary facilities: [facility], [place], [facility], [facility], [facility], [facility], and . Vivi LOYOLA CM
--- NOTE | 2019-08-23 11:21 | DCINST_ITS ---
- Discharge Diagnoses Current Active Problems: Current Active and Chronic Problems History of left heart catheterization (Chronic 08/23/19) LEFT MAIN: Angiographically normal; LEFT ANTERIOR DESCENDING ARTERY: Angiographically normal; CIRCUMFLEX ARTERY: Angiographically normal; RIGHT CORONARY ARTERY: PROX RCA: Mild luminal irregularities less than 30% 08/23/2019 per [facility] @ [facility] Unstable angina (Acute) Anxiety (Chronic) Tobacco abuse (Chronic) Hypertension (Chronic) Chest pain (Acute) You will use the following diet at home:: Cardiac Allergies/Adverse Reactions: Allergies No Known Allergies Allergy (Verified 08/21/19 19:01) Medications to take at Discharge Lisinopril [Prinivil] 20 mg PO DAILY 08/21/19 Aspirin E.C. [Ecotrin] 81 mg PO DAILY@0800 #60 tab 08/23/19 Atorvastatin Calcium [Lipitor] 80 mg PO QHS #60 tab 08/23/19 Metoprolol Tartrate [Lopressor (beta nara)] 25 mg PO BID #120 tab 08/23/19 The following prescriptions were given: Aspirin E.C. [Ecotrin] 81 mg PO DAILY@0800 #60 tab Transmission Status: Received by [id number] Atorvastatin Calcium [Lipitor] 80 mg PO QHS #60 tab Transmission Status: Received by [id number] Metoprolol Tartrate [Lopressor (beta nara)] 25 mg PO BID #120 tab Transmission Status: Received by [id number] Orders to be completed after discharge: 30-Day Event Recorder [[facility]] Location: None Selected Primary Care Physician: Madhu Figueroa MD [Primary Care Provider] - Please follow up with your Primary Care Physician in: in 5-7 days Test Results: Test results from this visit will be discussed in further detail at your follow- up appointment, if applicable. Please Follow Up With: Jones Swanson MD When: in 2-3 weeks Proposed Discharge Date: 08/23/19
--- NOTE | 2019-08-23 11:23 | PCM.DC.SUM ---
Discharge Date and Diagnosis Date of Admission: 08/21/19 Date of Discharge: 08/23/19 - Primary Discharge Diagnosis Active and Suspected Problems Unstable angina (Acute) Chest pain (Acute) - Secondary Discharge Diagnosis Chronic Problems History of left heart catheterization (Chronic 08/23/19) LEFT MAIN: Angiographically normal; LEFT ANTERIOR DESCENDING ARTERY: Angiographically normal; CIRCUMFLEX ARTERY: Angiographically normal; RIGHT CORONARY ARTERY: PROX RCA: Mild luminal irregularities less than 30% 08/23/2019 per [facility] @ [facility] Anxiety (Chronic) Tobacco abuse (Chronic) Hypertension (Chronic) Hospital Course and Treatment Summary of Care Provided: The patient is a 44 year old M presented with chest pain EKG demonstrated ischemic changes in aVF V5 and V6 1. Chest pain: This was suspected to be secondary to unstable angina patient was managed per protocol cardiology consulted patient underwent left heart catheterization which demonstrated minimal disease not amenable to intervention. As part of patient evaluation had a 2D echo carotid ultrasound as well as a 30-day event monitor was ordered on discharge per recommendations from cardiology 2. Dyslipidemia patient was started on high-dose statin therapy 3. Hypertension~ blood pressure controlled, home medications continued with dose adjustment as needed 4. Tobacco dependence counseled on cessation, offered nicotine patch for tobacco cravings 5. DVT prophylaxis- Lovenox SC - Physical Exam Vitals/I&O's: Vital Signs Temp Pulse Resp BP Pulse Ox 97.7 F L 53 L 14 113/68 99 08/23/19 11:05 08/23/19 11:05 08/23/19 11:05 08/23/19 11:05 08/23/19 11:05 Oxygen Delivery Method Room Air Weight: 82.5 kg Body Mass Index (BMI) 28.5 Intake and Output for Last 24 Hours 08/21/19 08/22/19 08/23/19 23:59 23:59 23:59 Intake Total 60 / 60 2720 / 2720 60 / 60 Balance 60 / 60 2720 / 2720 60 / 60 General: Alert HEENT: Atraumatic Neck: Supple Lungs: Normal air movement Cardiovascular: Regular rate, Regular Rhythm Laboratory Results 08/22/19 11:15: C-React Prot High Sens 2.04 Current Medications Acetaminophen (Tylenol) 650 mg PO Q6H PRN PRN PRN Reason: Pain Score 1-5/Temp > 100.7 F Alprazolam (Xanax) 0.5 mg PO BID PRN PRN PRN Reason: ANXIETY/INSOMNIA Aspirin (Ecotrin) 81 mg PO DAILY@0800 [facility] Last Admin: 08/23/19 05:07 Dose: 81 mg Documented by: Atorvastatin Calcium (Lipitor) 80 mg PO QHS [facility] Last Admin: 08/22/19 21:08 Dose: 80 mg Documented by: Heparin Sodium (Beef Lung) (Heparin 500 Unit/5 Ml (100/Ml)) 500 unit IV UD PRN PRN Reason: HEPARIN FLUSH Sodium Chloride () 1,000 mls @ 0 mls/hr IV .Q0M [facility] Labetalol HCl (Trandate) 5 mg IV X1 PRN PRN Reason: SBP > 160 prior to sheath pull Lisinopril (Zestril) 20 mg PO DAILY [facility] Last Admin: 08/23/19 05:08 Dose: 20 mg Documented by: Metoprolol Tartrate (Lopressor (Beta Lindsay)) 25 mg PO BID [facility] Last Admin: 08/23/19 05:07 Dose: 25 mg Documented by: Morphine Sulfate () 1 mg IV Q4H PRN PRN PRN Reason: Pain Score 6-10/10 Nicotine (Nicoderm Cq (Pbkc)) 21 mg TRANSDERM. DAILY [facility] Last Admin: 08/23/19 09:48 Dose: Not Given Documented by: Ondansetron HCl (Zofran) 4 mg IV Q8H PRN PRN PRN Reason: NAUSEA/VOMITING Sodium Chloride () 10 - 40 ml IV UD PRN PRN Reason: SALINE FLUSH Last Admin: 08/23/19 09:50 Dose: 10 ml Documented by: Zolpidem Tartrate (Ambien (Generic)) 5 mg PO QHS PRN PRN PRN Reason: INSOMNIA Discharge Diet: Low fat/ Low Cholesterol Home Medications: Medications to take at Discharge Lisinopril [Prinivil] 20 mg PO DAILY 08/21/19 Aspirin E.C. [Ecotrin] 81 mg PO DAILY@0800 #60 tab 08/23/19 Atorvastatin Calcium [Lipitor] 80 mg PO QHS #60 tab 08/23/19 Metoprolol Tartrate [Lopressor (beta lindsay)] 25 mg PO BID #120 tab 08/23/19 Following Prescrptions Were Given to Patient: Aspirin E.C. [Ecotrin] 81 mg PO DAILY@0800 #60 tab Transmission Status: Received by [id number] Atorvastatin Calcium [Lipitor] 80 mg PO QHS #60 tab Transmission Status: Received by [id number] Metoprolol Tartrate [Lopressor (beta lindsay)] 25 mg PO BID #120 tab Transmission Status: Received by [id number] Other Amb Orders: 30-Day Event Recorder [[facility]] Location: None Selected Primary Care Physician: Madhu Figueroa MD [Primary Care Provider] - Please follow up with your Primary Care Physician in: in 5-7 days Please Follow Up With: Jones Swanson MD When: in 2-3 weeks Disposition: Home Minutes spent on discharge:: 35 Patient Condition:: Stable Medical Necessity - Tobacco Use Smoking Status: Current every day smoker Tobacco Use: Cigarettes Meaningful Use Info Meaningful Use Diagnoses (Choose all that apply): None applicable Code Visit Inpatient E&M: 79722 Disch Hosp
--- NOTE | 2019-08-23 13:15 | NURSING ---
Bedrest complete, pt walked in hallway with this RN. Tolerated without difficulty, denies pain/discomfort. Dressing checked once returned to room, dry and intact.
--- NOTE | 2019-08-23 18:27 | NURSING ---
Reviewed and agreed on all charting with Drew Paredes RN
== END 2019-08-23 11:22 | disposition home or self-care (01) ==
LOC: ED 21:25 → PCU 08-22 06:27
PROVIDERS: Internal Medicine Cardiovascular Disease; Admitting Provider Hospitalist; Emergency Provider Emergency Medicine; Family Provider Family Medicine; PCP Family Medicine; Referring Provider Hospitalist; Visit Provider Internal Medicine
DX: I25.110 Atherosclerotic heart disease of native coronary artery with unstable angina pectoris (principal); R07.89 Other chest pain; I10 Essential (primary) hypertension; R20.2 Paresthesia of skin; F17.210 Nicotine dependence, cigarettes, uncomplicated; Z79.899 Other long term (current) drug therapy; F41.9 Anxiety disorder, unspecified; E78.5 Hyperlipidemia, unspecified; I73.9 Peripheral vascular disease, unspecified
CPT/HCPCS: 36415; 71045; 80048; 80061; 84484; 85025; 86141; 93005; 93306; 93458; 93880; 96360; 96361; 96372; 99152; 99218; 99283; 99406; J7030; J7040; Q9957; A4216; C1769; C1894; G0378; Q9967

== ENCOUNTER → 2019-09-01 10:50 | Outpatient (REF) | payer BC, SELFPAY ==
[2019-08-21 22:48] VITALS: BMI 28.5
== END ==
LOC: CVS 10:50
PROVIDERS: Family Provider Family Medicine; PCP Family Medicine; Referring Provider Internal Medicine; Visit Provider Internal Medicine
DX: R07.9 Chest pain, unspecified (principal); I49.8 Other specified cardiac arrhythmias
CPT/HCPCS: 93270; 93271

== ENCOUNTER 2020-07-13 05:26 | Day surgery (SDC) | payer BC, SELFPAY ==
[2020-06-28 14:23] VITALS: BMI 30.1
[2020-07-13 05:46] VITALS: BP 119/83; PULSE 91; RESP 16; TEMP 36.4; O2SAT 99; BMI 29.7
--- NOTE | 2020-07-13 05:47 | HP.PCM_ITS ---
Problem List (1) Rectal bleeding Status: Acute History and Physical Date of Admission: 07/13/20 Intake Visit Reasons: RECTAL BLEED/NEEDS C-SCOPE Chief Complaint: rectal bleed/c-scope consult [employer]ice Required: No Is patient in pain?: No Allergies No Known Allergies Allergy (Verified 06/28/20 14:25) Medications atorvastatin 80 mg tablet 20 mg PO QHS tab 06/28/20 [History] escitalopram oxalate 10 mg tablet 10 mg PO DAILY 06/28/20 [History Confirmed 06/28/20] lisinopril 40 mg tablet 10 mg PO DAILY tab 06/28/20 [History] [facility] Medical History Hyperlipidemia (Chronic) Unstable angina (Resolved) Anxiety (Chronic) Tobacco abuse (Chronic) Hypertension (Chronic) Chest pain (Resolved) History of back problems (Acute) Rectal bleeding (Acute) Sleep apnea (Acute) Surgical History History of left heart catheterization (Chronic 08/23/19) Family History (Updated 06/28/20 @ 14:23 by Jessica Burr) Father Born with 3 heart valves instead of 4 Hypertension High cholesterol Uncle Hypertension Social History (Updated 06/28/20 @ 15:[address] Leobardo Almodovar MD) Smoking Status: Current every day smoker HPI HPI HPI: JOSIE SALCEDO, is a 45 M who presents to the office today for surgical consultation regarding rectal bleeding and pain. The patient is referred by his primary care physician Dr. Clara Keller and a written copy of my surgical consult and recommendations will return to her. Patient is 45. A couple 3 weeks ago he had onset of some bright red blood that he noted on the tissue. It was, uncomfortable just before defecation and and during. He did have a brief bout of constipation. He thought that he could feel something and thought possibly it was an engorged hemorrhoid. It then seemed to resolve and become better. 2 days ago however E again noted slight amount of blood on the tissue. He denies personal history of colon polyps or colon cancer. There is no family history of the same. He has never had a colonoscopy. He is not on any anticoagulants. He does have a chronic anxiety disorder which requires medication treatment. He denies abdominal pain. No nausea or vomiting no fever chills sweats cough shortness of breath. He has never had a similar problem in the past. He works second shift. He admits that his diet is not good frequently having takeout food. Laboratory notes that July 2019 he had an echocardiogram which was not remarkable but at that time his lipid panel was reasonably abnormal with a cholesterol 228 triglycerides of 400 HDL of 25. At that time his hemoglobin was 14.3 with a hematocrit of 41.8 platelet count of 292,000. BUN was 10 and creatinine 1.11. He is a long-term cigarette smoker and he continues to smoke. HPI HPI HPI: JOSIE SALCEDO, is a 45 M who presents to the office today for ROS General General: No weight change, appetite, fatigue, colon cancer, breast cancer or weakness HEENT HEENT: No difficulty swallowing, eye injury, eye surgery, swollen glands or hoarseness Endo Endocrine: No thyroid disease, diabetes mellitus, thyroid cancer, Hair loss, heat intolerance or cold intolerance Skin Skin: No rash or changing moles Breast Breast: No left breast lump, right breast lump, nipple discharge, breast pain, abnormal mammogram, abnormal US or breast enlargement Musc Musculoskeletal: Yes back problems; no arthritis, rheumatoid arthritis, gout or joint pain Cardio Cardiovascular: Yes high blood pressure; no murmur, pacemaker, heart disease, atrial fibrillation, heart attack, heart stent, palpitations, shortness of breat with exertion or chest pain Psych Psychiatric: Yes anxiety; no depression or hearing voices Resp Respiratory: No shortness of breath, Yes sleep apnea, No cough, No COPD, No asthma, No emphysema, No wheezing Gastro Gastrointestinal: No abdominal pain, No nausea or vomiting, No diarrhea, No constipation, Yes blood in stool, No acid reflux, No hemorrhoids, No ulcers, No gallbladder problem, No black,tarry stools Wyatt Hematologic: No blood thinners, No blood disorders, No bleeding, No anemia, No blood clots Neuro Neurologic: No system reviewed and no additional complaints, except as docu, No as per HPI, No abnormal walking, No abnormal hearing, No abnormal movements, No abnormal speech, No behavioral changes, No burning sensations, No confusion, No seizure-like activity, No unsteadiness, No dizziness, No localized weakness, No frequent falls, No headache(s), No lack of coordination, No loss of vision, No memory loss, No numbness, No other visual disturbances, No radiating pain, No restless legs, No sensory deficit, No fainting, No tingling, No tremor(s), No weakness, No other Exam Const General: cooperative, healthy appearing, comfortable, no acute distress Nutritional Appearance: average body habitus Orientation: alert, awake [facility] Head: normal to inspection Eyes General: appearance normal, both eyes and all related structures Neck Neck: normal visual inspection Chest Breast Palpation: No nipple discharge Resp Effort & Inspection: normal respiratory effort Auscultation: clear to auscultation bilaterally Cardio Rate: regular rate Rhythm: regular rhythm Heart Sounds: no murmurs GI Palpation: soft, no hepatosplenomegaly Other: Mild tenderness to deep palpation left lower quadrant, no guarding, no rebound, no palpable mass, bowel sounds present and normal. Not expansile or pulsatile Other: No gross inguinal defects Musc Cervical Spine: normal cervical lordosis Skin General: no rashes or lesions noted Neuro Cognition: normal cognition Extrem General: no calf tenderness Psych Affect: normal affect Assessment & Plan Problems 1. Rectal bleeding K62.5 Plan 45-year-old gentleman with a recent history of bright red rectal bleeding noted on the tissue. It is waxed and waned a bit.'s been somewhat uncomfortable. He has not utilized any fiber supplementation or atht-awr-[id number] medications or ointments. He has never had a colonoscopy. He is quite anxious. I recommend to him a colonoscopy with possible biopsy or polypectomy as indicated. That will allow me to get a much better examination of his anal rectal area as well. I described the technique, benefit, risk, alternatives. We will perform this with monitored anesthesia care. He has had an opportunity to ask and have questions answered. He is aware of COVID-19. He is aware anticipate this to be an outpatient procedure not exposing him to the inpatient Covid floors. I appreciate the opportunity of assisting with his surgical care we will schedule and proceed at his discretion. He has been encouraged to initiate a daily fiber supplementation to counteract his constipation. He also is free to use [id number] hemorrhoidal creams. Copy: Dr. Clara Almodovar M.D., F.A.C.S. Coding Level of Care Code 42082 Diagnoses Rectal bleeding K62.5 I have re-examined the patient. There are no clinical changes since date of exam. Procedure Criteria Procedure Type: Elective COVID Risk Discussion: The surgeon/proceduralist and patient have discussed in detail the risk of exposure to and/or potential harm posed by the COVID-19 virus with having a surgery/procedure at this time versus the risk of delaying the s urgery/procedure. It is not possible to know either the risk of delaying the surgery or procedure or chance of getting an infection with perfect accuracy, but a joint decision was made between the patient and the surgeon/proceduralist to proceed at this time with the scheduled surgery/procedure as indicated on the consent form.
[2020-07-13] MEDS: Lactated Ringers 1,000 ML 100 ML IV (06:02)
[2020-07-13 06:51] VITALS: BP 119/83; BP 119/89; PULSE 79; RESP 16; TEMP 36.1; O2SAT 97
[2020-07-13 06:55] VITALS: BP 119/83; BP 132/105; PULSE 76; RESP 16; O2SAT 98
--- NOTE | 2020-07-13 06:55 | OP.CCLET_ITS ---
07/13/2020 Clara Keller [place] [id number] [address] Re : Colonoscopy procedure for Chilango Correa Dear Dr. Keller This procedure was performed on June. My impressions and recommendations are as follows: Impressions : - Anal fissure found on perianal exam. Posterior - The entire examined colon is normal. - No specimens collected. Recommendations : - Discharge patient to home. - Resume previous diet. - Continue present medications. - Use fiber, for example Citrucel, Fibercon, Konsyl or Metamucil. - Use hydrocortisone suppository 25 mg 1 per rectum once a day. Compounded diltiazem ointment prescribed - Repeat colonoscopy in 10 years for screening purposes. Patient may follow up in office for non-resolution of the posterior anal fissure My findings are described in the full procedure note, which is enclosed. If I can be of further assistance, please feel free to contact me at Doctor phone number(s): Work: . Sincerely, Leobardo Almodovar MD 07/13/2020 6:54:36 AM This report has been signed electronically.
--- NOTE | 2020-07-13 06:55 | OP.COLON_ITS ---
Patient Name: Chilango Correa Procedure Date: 07/13/2020 6:09 AM Date of : 1975 Age: 45 Procedure: Colonoscopy Indications: Rectal bleeding Providers: Leobardo Almodovar MD Referring MD: Clara Keller Medicines: See the Anesthesia note for documentation of the administered medications Patient Profile: Last Colonoscopy: none. The patient's first colonoscopy is today. Complications: No immediate complications. Procedure: Pre-Anesthesia Assessment: - Prior to the procedure, a History and Physical was performed, and patient medications and allergies were reviewed. The patient's tolerance of previous anesthesia was also reviewed. The risks and benefits of the procedure and the sedation options and risks were discussed with the patient. All questions were answered, and informed consent was obtained. Prior Anticoagulants: The patient has taken no previous anticoagulant or antiplatelet agents. ASA Grade Assessment: II - A patient with mild systemic disease. After reviewing the risks and benefits, the patient was deemed in satisfactory condition to undergo the procedure. After I obtained informed consent, the scope was passed under direct vision. Throughout the procedure, the patient's blood pressure, pulse, and oxygen saturations were monitored continuously. The colonoscope was introduced through the anus and advanced to the cecum, identified by appendiceal orifice and ileocecal valve. The colonoscopy was performed without difficulty. The patient tolerated the procedure well. The quality of the bowel preparation was good. Scope In: 6:33:26 AM Scope Withdrawal Time 0 hours 7 minutes 22 seconds Scope Out: 6:45:18 AM Total Procedure Duration Time 0 hours 11 minutes 52 seconds Findings: An anal fissure was found on perianal exam. The digital rectal exam was normal. Pertinent negatives include normal prostate (size, shape, and consistency). The colon (entire examined portion) appeared normal. Impression: - Anal fissure found on perianal exam. Posterior - The entire examined colon is normal. - No specimens collected. Recommendation: - Discharge patient to home. - Resume previous diet. - Continue present medications. - Use fiber, for example Citrucel, Fibercon, Konsyl or Metamucil. - Use hydrocortisone suppository 25 mg 1 per rectum once a day. Compounded diltiazem ointment prescribed - Repeat colonoscopy in 10 years for screening purposes. Patient may follow up in office for non-resolution of the posterior anal fissure Procedure Code(s): --- Professional --- 69538, Colonoscopy, flexible; diagnostic, including collection of specimen(s) by brushing or washing, when performed (separate procedure) Diagnosis Code(s): --- Professional --- K60.2, Anal fissure, unspecified K62.5, Hemorrhage of anus and rectum CPT copyright 2017 [employer]. All rights reserved. The codes documented in this report are preliminary and upon billet checker review may be revised to meet current compliance requirements. Leobardo Almodovar MD 07/13/2020 6:54:36 AM This report has been signed electronically. Number of Addenda: 0 Note Initiated On: 07/13/2020 6:09 AM
[2020-07-13 07:00] VITALS: BP 101/66; BP 119/83; PULSE 79; RESP 16; O2SAT 99
[2020-07-13 07:05] VITALS: BP 119/83; BP 98/58; PULSE 73; RESP 16; TEMP 36.4; O2SAT 100
[2020-07-13 07:46] VITALS: BP 119/83
== END 2020-07-13 07:47 | disposition home or self-care (01) ==
LOC: EN 05:26 → AC 05:27
PROVIDERS: PCP Family Medicine; Referring Provider Family Medicine; Visit Provider Surgery
PROC: 0DJD8ZZ Inspection of Lower Intestinal Tract, Via Natural or Artificial Opening Endoscopic (ICD-10-PCS; CPT 45378; principal; 2020-07-13 06:25)
DX: K62.5 Hemorrhage of anus and rectum (principal); Z20.828 Contact with and (suspected) exposure to other viral communicable diseases; E78.5 Hyperlipidemia, unspecified; I10 Essential (primary) hypertension; G47.30 Sleep apnea, unspecified; F41.9 Anxiety disorder, unspecified; F17.210 Nicotine dependence, cigarettes, uncomplicated; Z79.899 Other long term (current) drug therapy; K60.2 Anal fissure, unspecified
CPT/HCPCS: 45378; 87426; C9803; J7120; J2405

== ENCOUNTER → 2020-08-02 16:30 | Outpatient (CLI) | payer BC, SELFPAY ==
[2020-07-13 05:46] VITALS: BMI 29.7
== END ==
PROVIDERS: PCP Family Medicine; Referring Provider Family Medicine; Visit Provider Family Medicine
DX: Z03.818 Encounter for observation for suspected exposure to other biological agents ruled out (principal)
CPT/HCPCS: 87635; C9803; U0003

== ENCOUNTER 2021-11-07 12:09 | Outpatient (CLI) | payer BC, SELFPAY ==
[2021-11-07 15:19] LABS: Absolute Lymphocyte Count 1.59 X10^3/uL (0.83-4.51); Basophil# 0.02 X10^3/uL; Basophil% 0.3 % (0-1); Eosinophils% 1.6 % (0-5); Hematocrit 44.1 % (40-54); Hemoglobin 15.2 g/dL (13.0-16.5); Lymphocyte # 1.59 X10^3/ul (0.83-4.51); Mean Corp Hgb Conc 34.5 g/dL (32-36); Mean Corpuscular Hgb 29.2 pg (27.0-32.0); Mean Corpuscular Volume 84.8 fL (80-94); Mean Platelet Vol. 10.3 fl (6.2-12.0); Monocyte# 0.58 X10^3/uL; Monocyte% 9.1 % (0-10); NRBC Flagged by Analyzer 0 % (0-5); Neutrophil # 4.04 X10^3/uL (2.7-7.7); Neutrophil % 63.5 % (47-70); Platelet Count 308 K/mm3 (150-450); RBC Distribution Width CV 12.9 % (11.6-14.6); RBC Distribution Width SD 39.2 fl (35.1-43.9); White Blood Count 6.4 K/mm3 (4.4-11.0)
[2021-11-07 15:34] LABS: Vitamin D,25 Hydroxy 22.9 ng/mL
[2021-11-07 15:38] LABS: Hemoglobin A1c 5.4 % (3.8-5.6)
[2021-11-07 15:40] LABS: ALB/GLOB Ratio 1.2 RATIO (0.9-2.4); AST(SGOT) 25 U/L (15-37); Alanine Aminotransfer ALT/SGPT 47 U/L (16-61); Albumin, Serum 4.1 g/dL (3.2-5.0); Alkaline Phosphatase 97 U/L (45-117); Anion Gap 4 (5-15); BUN 9 mg/dL (7-18); BUN/Creat Ratio 8.3 RATIO (10-20); Calcium,Total 8.6 mg/dL (8.5-10.1); Chloride 106 mmol/L (98-107); Cholesterol 234 mg/dL (200); Creatinine, Serum 1.08 mg/dL (0.70-1.30); EST Glomerular Filtration Rate 78 mL/min (>60); Est Glom Filt Rate - Afr Amer 94 mL/min (>60); Free T3 3.5 pg/mL (2.18-3.98); Globulin 3.4 g/dL (2.2-4.2); Glucose 90 mg/dL (74-106); High Density Lipoprotein 28 mg/dL; PSA,Total - Annual Screen 0.98 ng/mL (0.00-4.00); Potassium 3.9 mmol/L (3.5-5.1); Protein, Total 7.5 g/dL (6.4-8.2); Sodium Level 138 mmol/L (136-145); T4 Free Direct 0.97 ng/dL (0.76-1.46); Thyroid Stim Hormone (TSH) 1.07 uIU/mL (0.358-3.74); Triglycerides 311 mg/dL; Very Low Density Lipoprotein 62 mg/dL (5-40)
== END 2021-11-07 23:59 | disposition home or self-care (01) ==
PROVIDERS: PCP Family Medicine; Visit Provider Internal Medicine
DX: E78.5 Hyperlipidemia, unspecified (principal); I10 Essential (primary) hypertension
CPT/HCPCS: 36415; 80053; 80061; 82306; 83036; 84153; 84439; 84443; 84481; 85025; G0103

== ENCOUNTER 2021-11-28 11:44 | Outpatient (CLI) | payer BC, SELFPAY | END 2021-11-28 23:59 | disposition home or self-care (01) | LOC: SL 11:45 | PROVIDERS: PCP Family Medicine; Visit Provider Internal Medicine | DX: G47.30 Sleep apnea, unspecified (principal) | CPT/HCPCS: 95806 ==

== ENCOUNTER → 2022-03-20 | Outpatient (CLI) | payer BC, SELFPAY | END | disposition home or self-care (01) | LOC: SL 16:16 | PROVIDERS: PCP Internal Medicine; Visit Provider Nurse Practitioner Acute Care | DX: Z46.89 Encounter for fitting and adjustment of other specified devices (principal) ==

== ENCOUNTER 2023-01-08 15:10 | Emergency (ER) | payer BC, SELFPAY ==
[2023-01-08 15:11] VITALS: BP 212/109; PULSE 93; RESP 16; TEMP 36.5; O2SAT 100; BMI 32.8
--- NOTE | 2023-01-08 15:28 | EKG12_ITS ---
Test Reason : CP Blood Pressure : / mmHG Vent. Rate : 086 BPM Atrial Rate : 086 BPM P-R Int : 160 ms QRS Dur : 102 ms QT Int : 360 ms P-R-T Axes : 029 039 004 degrees QTc Int : 430 ms Normal sinus rhythm Normal ECG Confirmed by JAYLAN MAYER, LOCO ([id number]), online editor FARRAH WORTHINGTON ([id number]) on 01/10/2023 9:28:06 AM Referred By: TANO Confirmed By:LOCO TIAN MD
[2023-01-08 15:37] VITALS: BP 174/90; PULSE 76
--- NOTE | 2023-01-08 15:45 | RAD_ITS ---
STUDY: X-RAY CHEST REASON FOR EXAM: Male, 47 years old. Chest pain. TECHNIQUE: Single AP portable view of the chest. COMPARISON: August 21, 2019. FINDINGS: The lungs are clear and expanded. There is no demonstrated pleural abnormality. Normal size heart. Normal mediastinum and shadia. Normal visualized pulmonary arteries. Normal visualized aortic arch and descending thoracic aorta. Normal visualized thoracic spine. Normal visualized ribs, clavicles, and shoulders. There is no demonstrated abnormality of the visualized soft tissue structures of the upper abdomen. RAD/Chest 1 View (Portable) IMPRESSION: No acute cardiopulmonary disease or major interval change. Electronically Signed: Alonzo Rouse DO at 16:48 EDT ,
[2023-01-08 15:48] LABS: Absolute Lymphocyte Count 2.63 X10^3/uL (0.83-4.51); Absolute Neutrophil Count 3.5 X10^3/uL (2.0-7.7); Basophil# 0.05 X10^3/uL; Basophil% 0.7 % (0-1); Eosinophils% 1.5 % (0-5); Hematocrit 41.9 % (40-54); Hemoglobin 13.9 g/dL (13.0-16.5); Lymphocyte # 2.63 X10^3/ul (0.83-4.51); Lymphocyte % 38.3 % (19-41); Mean Corp Hgb Conc 33.2 g/dL (32-36); Mean Corpuscular Volume 84.5 fL (80-94); Mean Platelet Vol. 9.6 fl (6.2-12.0); Monocyte# 0.55 X10^3/uL; NRBC Flagged by Analyzer 0 % (0-5); Neutrophil # 3.47 X10^3/uL (2.7-7.7); Neutrophil % 50.6 % (47-70); Platelet Count 307 K/mm3 (150-450); RBC Distribution Width CV 12.8 % (11.6-14.6); RBC Distribution Width SD 39.2 fl (35.1-43.9); Red Blood Count 4.96 M/mm3 (4.6-6.2); White Blood Count 6.9 K/mm3 (4.4-11.0)
[2023-01-08 16:10] LABS: Anion Gap 6 (5-15); BUN 9 mg/dL (7-18); BUN/Creat Ratio 6.8 RATIO (10-20); Calcium,Total 8.8 mg/dL (8.5-10.1); Chloride 105 mmol/L (98-107); Creatinine, Serum 1.32 mg/dL (0.70-1.30); EST Glomerular Filtration Rate 62 mL/min (>60); Est Glom Filt Rate - Afr Amer 75 mL/min (>60); Estimated Creatinine Clearance 64.68 ml/min; Glucose 109 mg/dL (74-106); Potassium 4.2 mmol/L (3.5-5.1); Sodium Level 139 mmol/L (136-145); Troponin-I HS (w/2H Reflex) 6 pg/mL (3.0-78.0)
--- NOTE | 2023-01-08 16:23 | ED.VIS.CHEST ---
HPI History of Present Illness Chief Complaint: Chest Pain Narrative Narrative: Patient with multiple symptoms. Patient states that he started having chest pains and shortness of breath yesterday. This was intermittent. Today he had an prior to arrival. He states that he is also having some intermittent abdominal tingling. He feels like there is electrodes on his abdomen and he points to the mid abdomen. He states that he feels like there might of been a hernia in his upper abdomen yesterday which self reduced. He does not have a history of this. He states he previously had a cardiac cath in 2019 which was normal. He has a past medical history of a hypertension, hyperlipidemia, obesity, tobacco use. Patient denies any diarrhea but does state has been constipated. No nausea or vomiting. Patient also notes that his head feels like he is got some pressure in it. He denies dizziness or lightheadedness. He states it was not an acute onset headache. No visual changes He notes that his blood pressure is elevated today. He forgot to take his medication. He states he takes 50 mg of labetalol twice a day. [facility] Medical History Anxiety Chest pain Chronic neck and back pain History of back problems Hyperlipidemia Hypertension Rectal bleeding Rectal bleeding Shoulder pain Sleep apnea Tobacco abuse Unstable angina Home Medications labetalol 100 mg tablet 50 mg PO BID #90 tabs 06/27/22 [Rx Last Taken Unknown] rosuvastatin 10 mg tablet 10 mg PO DAILY #90 tabs 06/27/22 [Rx Last Taken Unknown] Allergy/AdvReac Type Severity Reaction Status Date / Time No Known Allergies Allergy Verified 01/08/23 15:13 Family History Father Born with 3 heart valves instead of 4 Hypertension High cholesterol Uncle Hypertension Surgical History History of left heart catheterization (08/23/19) History of placement of ear tubes Social History Smoking Status: Current every day smoker tobacco type: cigarettes alcohol intake: current alcohol intake frequency: holidays/special occasions only substance use type: does not use ROS ROS ED Constitutional Constitutional ED: Denies chills, fever(s) or sweats Eyes Eyes: Denies blurry vision or change in vision ENT ENT ED: Denies ear pain or sore throat Cardiovascular Cardiovascular: Reports chest pain; Denies palpitations or racing heartbeat Respiratory/Chest Respiratory/Chest: Denies cough, dyspnea or sputum Gastrointestinal Gastrointestinal: Reports abdominal pain; Denies constipation, diarrhea, nausea or vomiting Genitourinary Genitourinary ED: Denies dysuria, hematuria or urinary frequency Musculoskeletal Musculoskeletal: Denies arthralgias, myalgias or neck pain Integumentary Denies abscess, Abrasions or rash Neurologic Neurologic: Reports headache(s); Denies paresthesias or weakness Psychiatric Psychiatric: Denies anxiety, depression, suicidal ideation or suicidal thoughts Endocrine Endocrinology: Denies polydipsia or polyuria EXAM Physical Exam Const Vital Signs: 01/08/23 15:11 01/08/23 15:20 01/08/23 15:37 Temperature 97.7 F L Temperature Source Temporal Pulse Rate 93 76 Respiratory Rate 16 Respiratory Effort Normal Non-Labored Blood Pressure 212/109 H 174/90 H Blood Pressure Mean 143 118 Pulse Ox 100 Oxygen Delivery Method Room Air 01/08/23 17:34 01/08/23 15:28 01/08/23 18:00 Temperature Temperature Source Pulse Rate 87 78 Respiratory Rate 20 H 15 Respiratory Effort Blood Pressure 151/90 H 160/87 H Blood Pressure Mean 110 111 Pulse Ox 98 98 Oxygen Delivery Method Room Air Room Air Room Air Positive well nourished General Appearance ED: NAD; Negative for pallor HEENT Reports moist mucous membranes normocephalic and atraumatic Eyes PERRL and EOMs intact bilaterally Resp normal respiratory effort and clear to auscultation bilaterally Cardio regular rate and regular rhythm GI normal to inspection, nondistended, normoactive bowel sounds Back/Spine no CVA tenderness Neuro oriented x3 and CN's II-XII intact bilaterally Sensorium / Orientation: awake and alert Skin no rashes or lesions noted and no wounds General Skin Exam: Negative for jaundice or pallor Heart Score History: Slightly/Non-Suspicious ECG: Normal Age: >45 - <65 years Risk Factors: >/= 3 Risk Factors or History of CAD Score: 3 MDM MDM MDM Narrative Medical decision making narrative: Patient presenting with multiple complaints. He notes that his blood pressure is up today. He forgot to take his medication. Arrival blood pressure 212/109. Given the patient's elevated blood pressure and headache I will obtain a CT of the brain to rule out intracranial hemorrhage. Differential also includes ACS, pneumonia, electrolyte abnormalities, endorgan damage. Considered PE however the patient is PERC negative. Did considered aortic dissection however he is not having a ripping and tearing feeling. Patient was given 5 mg of hydralazine for his blood pressure. Did also consider cholecystitis, cholelithiasis, pancreatitis. He does have pain in the chest and in the abdomen so I will obtain a CBC to assess white blood cell count, hemoglobin, lites, differential. BMP to assess renal function, electrolytes, glucose, anion gap. LFTs to assess his liver function. Lipase to assess for pancreatitis. High-sensitivity troponin, EKG to rule out ischemia. Chest x-ray will be obtained as well. Patient's EKG is a sinus rhythm with a ventricular rate of 86 bpm outside of ischemia or ectopy. CBC unremarkable. BMP shows a creatinine 1.32 which is new for the patient. He is given a liter of IV fluids. High-sensitivity troponin is 6. Delta troponin is 8 therefore there is no significant interval change. Blood pressure now 160/87. CT brain negative for acute intracranial process. Chest x-ray on my interpretation shows no acute cardiopulmonary process. The radiologist interprets this and agrees. Patient counseled to continue his blood pressure medications at home. I feel he is stable for discharge at this time. Impression: 1. Headache 2. Elevated blood pressure 3. Chest pain 4. Abdominal pain Lab Data Labs: Laboratory Results - last 24 hr 01/08/23 01/08/23 01/08/23 15:30 15:30 15:30 WBC 6.9 RBC 4.96 Hgb 13.9 Hct 41.9 MCV 84.5 MCH 28.0 MCHC 33.2 RDW Std Deviation 39.2 RDW Coeff of Candice 12.8 Plt Count 307 MPV 9.6 Immature Gran % (Auto) 0.900 Neut % (Auto) 50.6 Lymph % (Auto) 38.3 [place] % (Auto) 8.0 Eos % (Auto) 1.5 Baso % (Auto) 0.7 Absolute Neuts (auto) 3.5 Absolute Lymphs (auto) 2.63 Nucleated RBC % 0 Sodium 139 Potassium 4.2 Chloride 105 Carbon Dioxide 28.0 Anion Gap 6 BUN 9 Creatinine 1.32 H Estim Creat Clear Calc 64.68 Est GFR (MDRD) Af Amer 75 Est GFR (MDRD) Non-Af 62 BUN/Creatinine Ratio 6.8 L Glucose 109 H Calcium 8.8 Total Bilirubin 1.00 Direct Bilirubin 0.14 AST 31 ALT 56 Alkaline Phosphatase 80 Troponin I High Sens 6 Total Protein 7.2 Albumin 3.8 Globulin 3.4 Lipase 24 01/08/23 17:54 WBC RBC Hgb Hct MCV MCH MCHC RDW Std Deviation RDW Coeff of Candice Plt Count MPV Immature Gran % (Auto) Neut % (Auto) Lymph % (Auto) [place] % (Auto) Eos % (Auto) Baso % (Auto) Absolute Neuts (auto) Absolute Lymphs (auto) Nucleated RBC % Sodium Potassium Chloride Carbon Dioxide Anion Gap BUN Creatinine Estim Creat Clear Calc Est GFR (MDRD) Af Amer Est GFR (MDRD) Non-Af BUN/Creatinine Ratio Glucose Calcium Total Bilirubin Direct Bilirubin AST ALT Alkaline Phosphatase Troponin I High Sens 8 Total Protein Albumin Globulin Lipase Radiography Diagnostic Testing: Clinical Impression(s) from Imaging Studies Chest X-Ray 01/08/23 15:45 IMPRESSION: No acute cardiopulmonary disease or major interval change. Electronically Signed: Alonzo Rouse DO at 16:48 EDT Reading Location ID and State: [address] [place] [address] Tel [phone], Service support , Brain CT 01/08/23 16:35 IMPRESSION: Normal unenhanced CT scan of the brain. No major interval change. AIDOC was utilized to assist in identifying pertinent positive findings in this case. Electronically Signed: Alonzo Rouse DO at 16:56 EDT Reading Location ID and State: [address] [place] [address] Tel [phone], Service support , Discharge Plan Triage Chief Complaint: Chest Pain ED Provider: Mohit Roger Dx/Rx/DC Orders Prescriptions: No Action labetalol 100 mg tablet 50 mg PO BID Qty: 90 1RF Rx Instructions: take 1/2 tab to equal 50 mg BID rosuvastatin 10 mg tablet 10 mg PO DAILY Qty: 90 3RF Primary Care Provider: Alysha Tam Referrals: Alysha Tam MD [Primary Care Provider] -
[2023-01-08] MEDS: hydrALAZINE 20 MG/ML Vial 5 MG IV (16:30)
--- NOTE | 2023-01-08 16:35 | CT_ITS ---
STUDY: CT BRAIN WITHOUT CONTRAST REASON FOR EXAM: Male, 47 years old. Headache. Ringing in the ears. RADIATION DOSAGE (If Supplied By Facility): CTDIvol = ( 44.99 ) mGy, DLP = ( 812.98 ) mGycm TECHNIQUE: Transaxial CT imaging of the brain was performed without administration of intravenous contrast material. Individualized dose optimization techniques were used for this CT. COMPARISON: March 24, 2019. FINDINGS: Normal soft tissue structures. Normal calvarium. Normal size ventricles and extra-axial spaces for the patient''s age. Normal white matter tracts of the cerebral hemispheres. Normal basal ganglia and thalami. Normal brainstem. Normal cerebellum. There is no intracranial hemorrhage. There are no findings of an acute ischemic infarction. Normal visualized paranasal sinuses. CT/Brain/Head without Contrast IMPRESSION: Normal unenhanced CT scan of the brain. No major interval change. AIDOC was utilized to assist in identifying pertinent positive findings in this case. Electronically Signed: Alonzo Rouse DO at 16:56 EDT ,
[2023-01-08 17:06] LABS: AST(SGOT) 31 U/L (15-37); Alanine Aminotransfer ALT/SGPT 56 U/L (16-61); Albumin, Serum 3.8 g/dL (3.2-5.0); Alkaline Phosphatase 80 U/L (45-117); Bilirubin, Direct 0.14 mg/dL (0.00-0.30); Globulin 3.4 g/dL (2.2-4.2); Lipase 24 U/L (13-75); Protein, Total 7.2 g/dL (6.4-8.2)
[2023-01-08 17:34] VITALS: BP 151/90; PULSE 87; RESP 20; O2SAT 98
[2023-01-08 17:37] LABS: Reflex Troponin-HS? (from REC) Y
[2023-01-08 18:00] VITALS: BP 160/87; PULSE 78; RESP 15; O2SAT 98
[2023-01-08 18:56] LABS: Troponin-I HS 8 pg/mL (3.0-78.0)
[2023-01-08 19:11] VITALS: BP 150/87; PULSE 75; RESP 17; O2SAT 98
== END 2023-01-08 19:15 | disposition home or self-care (01) ==
PROVIDERS: Emergency Provider Student in an Organized Health Care Education/Training Program; PCP Internal Medicine; Visit Provider Student in an Organized Health Care Education/Training Program
DX: R51.9 Headache, unspecified (principal); R03.0 Elevated blood-pressure reading, without diagnosis of hypertension; R07.9 Chest pain, unspecified; R10.9 Unspecified abdominal pain; F17.210 Nicotine dependence, cigarettes, uncomplicated; G47.30 Sleep apnea, unspecified
CPT/HCPCS: 70450; 71045; 80048; 80076; 83690; 84484; 85025; 93005; 96374; 99283; A4216

== ENCOUNTER 2023-02-26 15:06 | Emergency (ER) | payer BC, SELFPAY ==
[2023-02-26 15:06] VITALS: BP 179/88; PULSE 84; RESP 18; TEMP 36.6; O2SAT 98
[2023-02-26 15:19] VITALS: BMI 32.8
--- NOTE | 2023-02-26 15:49 | EX.ED.DYSGE1 ---
HPI History of Present Illness Chief Complaint: Abd Pain [facility] Medical History Anxiety Chest pain Chronic neck and back pain History of back problems Hyperlipidemia Hypertension Rectal bleeding Rectal bleeding Shoulder pain Sleep apnea Tobacco abuse Unstable angina Home Medications labetalol 100 mg tablet 50 mg (1/2 x 100 mg) PO BID #90 tabs 06/27/22 [Rx Last Taken Unknown] rosuvastatin 10 mg tablet 10 mg PO DAILY #90 tabs 06/27/22 [Rx Last Taken Unknown] Allergy/AdvReac Type Severity Reaction Status Date / Time No Known Allergies Allergy Verified 02/26/23 15:09 Family History Father Born with 3 heart valves instead of 4 Hypertension High cholesterol Uncle Hypertension Surgical History History of left heart catheterization (08/23/19) History of placement of ear tubes Social History Smoking Status: Former smoker alcohol intake: current alcohol intake frequency: holidays/special occasions only substance use type: does not use EXAM Physical Exam Const Vital Signs: 02/26/23 15:06 02/26/23 17:29 Temperature 97.8 F Temperature Source Temporal Pulse Rate 84 82 Respiratory Rate 18 16 Blood Pressure 179/88 H 178/83 H Blood Pressure Mean 118 114 Pulse Ox 98 98 Oxygen Delivery Method Room Air Room Air [facility] MDM Narrative Medical decision making narrative: HISTORY OF PRESENT ILLNESS: 47-year-old male here for 30 minutes right lower quad abdominal pain nausea vomiting. States the pain is constant, nonradiating, last bowel was yesterday. No vomiting. Notes he is nauseous. Denies history abdominal surgeries he denies any urinary complaints REVIEW OF SYSTEMS: Pertinent positives: Right lower quad abdominal pain nausea Pertinent negatives: Syncope, urinary complaints, testicular tenderness PHYSICAL EXAM: Nursing triage notes reviewed, Vital signs reviewed Constitutional: please see mdm HENT: MMM Eyes: Pupils equal round and reactive to light, Extraocular muscles intact Neck: No stridor, no JVD, full neck ROM Lungs: Clear to auscultation, No wheezing or rales. No increased work of breathing, no conversational dyspnea, no accessory muscle use, no nasal flaring. No respiratory distress noted Heart: Regular rate and rhythm, No murmurs, No rubs and No gallops, 2+ distal pulses (radial, femoral, posterior tibial) in all extremities Abdomen: Soft, right lower quadrant TTP, no,rigidity, rebound or guarding, no obvious peritoneal signs, no palpable pulsatile abdominal masses, no auscultated abdominal bruit. Negative Simons sign. : No CVAT Extremities: No edema Neuro: No focal neurological deficits, cranial nerves II through XII intact, 5/5 strength in all extremities. Intact sensation to light touch in all extremities, 2+ reflexes bilateral patella tendons. Normal gait. No ataxia. Skin: No rash or lesions noted MEDICAL DECISION MAKING: Chief Complaint: Right lower quad abdominal pain External records reviewed: No recent Fuentes imaging of the abdomen or pelvis noted Factors affecting care: Hyperlipidemia Social determinants of health: tobacco abuse History obtained from others: none Consults: none ALL IMAGES (IF OBTAINED) HAVE BEEN PERSONALLY REVIEWED AND INTERPRETED BY MYSELF. CMP without evidence of acute kidney injury, significant electrolyte abnormality, anion gap, no evidence hepatobiliary pathology. Lipase is wnl indicating no pancreatic inflammation. CBC without leukocytosis, severe anemia, no thrombocytopenia. Urinalysis shows no evidence of urinary inflammation suggestive of UTI MDM Narrative: Patient was hemodynamically stable, afebrile, nontoxic-appearing. Exam with right lower quadrant TTP., No testicular tenderness, no obvious hernias. I considered the following differential diagnosis: Perforation, obstruction, appendicitis, UTI, pyelonephritis, Nephrolithiasis I obtained a broad lab and imaging work-up to further elucidate etiology patient complaints. CT scan was negative for acute appendicitis or other intra-abdominal pathology that require surgery. There is no evidence of UTI, pyelonephritis.For nephrolithiasis given negative CT scan. No clear etiology could be ascertained. Patient's repeat abdominal exam is benign. Vital signs remained stable. With negative labs, images normal vital signs and a benign abdominal exam Evalose patient for acute life-limiting etiology the abdomen at this time. Will discharge with close PCP follow-up The patient and/or family, caregivers express understanding. The patient and/or family, caregivers agrees with the plan. Total critical care time today provided was at least 0 minutes. This excludes separately billable procedures. Critical care time (if documented) is secondary to the patient having high probability of clinically significant/life threatening deterioration in the patient's condition which required my urgent intervention. Shared decision making: I will have a discussion with the patient and or visitors regarding risk/benefits of further testing or admission. They will be made aware of of the risk/benefits inherent in this decision they will be given the opportunity to voice understanding. Lab Data Attestation: I reviewed the patient's lab results. Labs: Laboratory Results - last 24 hr 02/26/23 02/26/23 15:35 17:15 WBC 6.2 RBC 4.84 Hgb 14.0 Hct 39.5 L MCV 81.6 MCH 28.9 MCHC 35.4 RDW Std Deviation 37.0 RDW Coeff of Candice 12.5 Plt Count 287 MPV 9.3 Immature Gran % (Auto) 0.800 Neut % (Auto) 52.9 Lymph % (Auto) 36.4 [place] % (Auto) 7.6 Eos % (Auto) 1.8 Baso % (Auto) 0.5 Absolute Neuts (auto) 3.3 Absolute Lymphs (auto) 2.25 Nucleated RBC % 0 Sodium 137 Potassium 3.9 Chloride 106 Carbon Dioxide 27.0 Anion Gap 4 L BUN 7 Creatinine 1.19 Estim Creat Clear Calc 71.75 Est GFR (MDRD) Af Amer 84 Est GFR (MDRD) Non-Af 69 BUN/Creatinine Ratio 5.9 L Glucose 95 Calcium 9.0 Total Bilirubin 1.10 H AST 27 ALT 47 Alkaline Phosphatase 83 Total Protein 7.4 Albumin 3.7 Globulin 3.7 Albumin/Globulin Ratio 1.0 Lipase 22 Urine Color Yellow Urine Clarity Sl. Cloudy Urine pH 7.0 Ur Specific [place] 1.005 Urine Protein Negative Urine Glucose (UA) Normal Urine Ketones Negative Urine Occult Blood Negative Urine Nitrite Negative Urine Bilirubin Negative Urine Urobilinogen Normal Ur Leukocyte Esterase Negative Radiography Diagnostic Testing: Clinical Impression(s) from Imaging Studies Abdomen/Pelvis CT 02/26/23 15:50 IMPRESSION: Negative CT of the abdomen and pelvis with intravenous contrast. Electronically Signed: Jam Leon MD at 17:25 EDT , Discharge Plan Triage Chief Complaint: Abd Pain ED Provider: Low Beltran Dx/Rx/DC Orders Clinical Impression: Abdominal pain Instructions: Abdominal Pain Prescriptions: No Action labetalol 100 mg tablet 50 mg PO BID Qty: 90 1RF Rx Instructions: take 1/2 tab to equal 50 mg BID rosuvastatin 10 mg tablet 10 mg PO DAILY Qty: 90 3RF Primary Care Provider: Alysha Tam Referrals: Alysha Tam MD [Primary Care Provider] - Activity Restrictions/Additional Instructions: Thank you for trusting us with your care today! Please take Tylenol (2 pills, 650 mg), ibuprofen (2 pills, 400 mg) every 6 hours as needed for pain and fever control. Please return to the emergency department if your symptoms change or worsen. Specifically if you have vomiting cannot tolerate medicine by mouth. Develop worsening pain. You lose consciousness. If you do not have a bowel movement at your regular interval. Please follow with your primary care physician for further outpatient evaluation and management. Disposition Disposition: Home, Self Care
--- NOTE | 2023-02-26 15:50 | CT_ITS ---
EXAM: CT ABDOMEN AND PELVIS WITH INTRAVENOUS CONTRAST CLINICAL INDICATION: Right lower quad abdominal pain TECHNIQUE: Helically acquired images were obtained of the abdomen and pelvis with intravenous contrast. This CT exam was performed using one or more of the following dose reduction techniques: automated exposure control, adjustment of the mA and/or kV according to patient size, and/or use of iterative reconstruction technique. CONTRAST: IV 100mL Isovue-300 COMPARISON: No relevant prior studies available. FINDINGS: LOWER THORAX: Unremarkable. Lung bases are clear. No cardiomegaly. No significant pericardial effusion. ABDOMEN: LIVER: Unremarkable. Homogeneous. No focal mass. GALLBLADDER AND BILE DUCTS: Unremarkable. No calcified gallstones. No gallbladder distention or wall edema. No intra- or extrahepatic biliary ductal dilation. PANCREAS: Unremarkable. No focal cystic or solid mass. SPLEEN: Unremarkable. Normal size without focal cystic or solid mass. ADRENALS: Unremarkable. No nodules. KIDNEYS AND URETERS: Unremarkable. Normal renal size and position. No hydronephrosis. STOMACH AND BOWEL: Unremarkable. No stomach or bowel distention. No focal inflammatory change. PELVIS: APPENDIX: No evidence of acute appendicitis. BLADDER: Unremarkable. REPRODUCTIVE: Unremarkable as visualized. No mass. ABDOMEN and PELVIS: INTRAPERITONEAL SPACE: Unremarkable. No ascites or other fluid collection. No free air. BONES/JOINTS: Unremarkable. No suspicious lytic or blastic abnormality. SOFT TISSUES: Unremarkable. No discrete abdominal or pelvic wall hernia. VASCULATURE: Unremarkable. Abdominal aorta is non-dilated. LYMPH NODES: Unremarkable. No enlarged lymph nodes. CT/Abdomen/Pelvis W IV Cont ONLY IMPRESSION: Negative CT of the abdomen and pelvis with intravenous contrast. Electronically Signed: Jam Leon MD at 17:25 EDT ,
[2023-02-26 15:59] LABS: Absolute Lymphocyte Count 2.25 X10^3/uL (0.83-4.51); Absolute Neutrophil Count 3.3 X10^3/uL (2.0-7.7); Basophil# 0.03 X10^3/uL; Basophil% 0.5 % (0-1); Eosinophil# 0.11 X10^3/uL; Eosinophils% 1.8 % (0-5); Hematocrit 39.5 % (40-54); Lymphocyte # 2.25 X10^3/ul (0.83-4.51); Lymphocyte % 36.4 % (19-41); Mean Corp Hgb Conc 35.4 g/dL (32-36); Mean Corpuscular Hgb 28.9 pg (27.0-32.0); Mean Corpuscular Volume 81.6 fL (80-94); Mean Platelet Vol. 9.3 fl (6.2-12.0); Monocyte# 0.47 X10^3/uL; Monocyte% 7.6 % (0-10); NRBC Flagged by Analyzer 0 % (0-5); Neutrophil # 3.27 X10^3/uL (2.7-7.7); Neutrophil % 52.9 % (47-70); Platelet Count 287 K/mm3 (150-450); RBC Distribution Width CV 12.5 % (11.6-14.6); Red Blood Count 4.84 M/mm3 (4.6-6.2); White Blood Count 6.2 K/mm3 (4.4-11.0)
[2023-02-26] MEDS: Morphine 4 MG/ML Syringe IV (16:05)
[2023-02-26] MEDS: Ondansetron 4 MG/2 ML Vial IV (16:05)
[2023-02-26] MEDS: Ketorolac 15 MG/ML Vial IV (16:05)
[2023-02-26] MEDS: 0.9% Normal Saline 1,000 ML 1000 ML IV (16:09)
[2023-02-26 16:21] LABS: AST(SGOT) 27 U/L (15-37); Alanine Aminotransfer ALT/SGPT 47 U/L (16-61); Albumin, Serum 3.7 g/dL (3.2-5.0); Alkaline Phosphatase 83 U/L (45-117); Anion Gap 4 (5-15); BUN 7 mg/dL (7-18); BUN/Creat Ratio 5.9 RATIO (10-20); Chloride 106 mmol/L (98-107); Creatinine, Serum 1.19 mg/dL (0.70-1.30); EST Glomerular Filtration Rate 69 mL/min (>60); Est Glom Filt Rate - Afr Amer 84 mL/min (>60); Estimated Creatinine Clearance 71.75 ml/min; Globulin 3.7 g/dL (2.2-4.2); Glucose 95 mg/dL (74-106); Lipase 22 U/L (13-75); Potassium 3.9 mmol/L (3.5-5.1); Protein, Total 7.4 g/dL (6.4-8.2); Sodium Level 137 mmol/L (136-145)
[2023-02-26 17:29] VITALS: BP 178/83; PULSE 82; RESP 16; O2SAT 98
[2023-02-26 17:42] LABS: Color, Urine Yellow (Yellow); Glucose, Dipstick Normal (Normal); Ketone-Dipstick Negative (Negative); Leukocyte Esterase-Dipstick Negative /ul (Negative); Nitrite-Dipstick Negative (Negative); Occult Blood-Urine Negative /ul (Negative); Protein-Dipstick Negative (Negative); Specific Gravity, Urine 1.005 (1.002-1.030); Urine Bilirubin Dipstick Negative (Negative); Urine Clarity Sl. Cloudy (Clear); Urine Urobilinogen Normal (Normal)
[2023-02-26 18:55] VITALS: BP 124/74; PULSE 62; RESP 15; O2SAT 98
== END 2023-02-26 18:56 | disposition home or self-care (01) ==
PROVIDERS: Emergency Provider Emergency Medicine; PCP Internal Medicine; Visit Provider Emergency Medicine
DX: R10.31 Right lower quadrant pain (principal); G47.30 Sleep apnea, unspecified; Z87.891 Personal history of nicotine dependence
CPT/HCPCS: 74177; 80053; 81002; 83690; 85025; 96361; 96374; 96375; 99283; J7030; Q9967; A4216; J2405

== ENCOUNTER → 2024-05-03 | Outpatient (CLI) | payer BC, SELFPAY ==
[2024-05-03 12:05] LABS: Absolute Lymphocyte Count 1.85 X10^3/uL (0.83-4.51); Absolute Neutrophil Count 3.5 X10^3/uL (2.0-7.7); Basophil# 0.02 X10^3/uL; Basophil% 0.3 % (0-1); Eosinophil# 0.07 X10^3/uL; Eosinophils% 1.2 % (0-5); Hematocrit 43.6 % (40-54); Hemoglobin 14.5 g/dL (13.0-16.5); Lymphocyte # 1.85 X10^3/ul (0.83-4.51); Lymphocyte % 31.4 % (19-41); Mean Corp Hgb Conc 33.3 g/dL (32-36); Mean Corpuscular Hgb 27.7 pg (27.0-32.0); Mean Corpuscular Volume 83.4 fL (80-94); Mean Platelet Vol. 10.3 fl (6.2-12.0); Monocyte# 0.41 X10^3/uL; NRBC Flagged by Analyzer 0 % (0-5); Neutrophil # 3.51 X10^3/uL (2.7-7.7); Neutrophil % 59.6 % (47-70); Platelet Count 289 K/mm3 (150-450); RBC Distribution Width CV 12.5 % (11.6-14.6); RBC Distribution Width SD 37.5 fl (35.1-43.9); Red Blood Count 5.23 M/mm3 (4.6-6.2); White Blood Count 5.9 K/mm3 (4.4-11.0)
[2024-05-03 12:36] LABS: AST(SGOT) 23 U/L (15-37); Alanine Aminotransfer ALT/SGPT 47 U/L (16-61); Albumin, Serum 3.8 g/dL (3.2-5.0); Alkaline Phosphatase 91 U/L (45-117); Anion Gap 5 (5-15); BUN 9 mg/dL (7-18); BUN/Creat Ratio 7.1 RATIO (10-20); Calcium,Total 9.8 mg/dL (8.5-10.1); Chloride 104 mmol/L (98-107); Cholesterol 237 mg/dL (200); Creatinine, Serum 1.26 mg/dL (0.70-1.30); EST Glomerular Filtration Rate 65 mL/min (>60); Est Glom Filt Rate - Afr Amer 78 mL/min (>60); Glucose 103 mg/dL (74-106); High Density Lipoprotein 34 mg/dL; PSA,Total - Annual Screen 0.87 ng/mL (0.00-4.00); Potassium 4.1 mmol/L (3.5-5.1); Protein, Total 7.8 g/dL (6.4-8.2); Sodium Level 137 mmol/L (136-145); Triglycerides 289 mg/dL; Very Low Density Lipoprotein 58 mg/dL (5-40)
[2024-05-03 15:08] LABS: Hemoglobin A1c 5.5 % (3.8-5.6)
[2024-05-03 15:50] LABS: Vitamin D,25 Hydroxy 40.3 ng/mL
[2024-05-18 16:10] LABS: Aldosterone, Serum 1.7 ng/dL (0.0-30.0); Dopamine, Pl <30 pg/mL (0-48); Epinephrine, Pl 72 pg/mL (0-62); Norepinephrine, Pl 431 pg/mL (0-874); Renin, Plasma 0.421 ng/mL/hr (0.167-5.380)
== END | disposition home or self-care (01) ==
LOC: BIMLAB 11:19
PROVIDERS: PCP Internal Medicine; Referring Provider Internal Medicine; Visit Provider Internal Medicine
DX: R51.9 Headache, unspecified (principal); E78.5 Hyperlipidemia, unspecified; I10 Essential (primary) hypertension; F41.9 Anxiety disorder, unspecified; R73.9 Hyperglycemia, unspecified; E55.9 Vitamin D deficiency, unspecified; Z13.220 Encounter for screening for lipoid disorders; Z12.5 Encounter for screening for malignant neoplasm of prostate
CPT/HCPCS: 36415; 80053; 80061; 82088; 82306; 82384; 83036; 83735; 84153; 84244; 84443; 85025; G0103

== ENCOUNTER → 2024-05-31 | Outpatient (CLI) | payer BC, SELFPAY ==
--- NOTE | 2024-05-31 15:32 | MRI_ITS ---
STUDY: MRI BRAIN WITH AND WITHOUT CONTRAST (ATTENTION INTERNAL AUDITORY CANALS - I.A.C.''s) REASON FOR EXAM: Male, 49 years old. Pulsing right ear, headache, hypertension TECHNIQUE: Standardized multiplanar fat and water weighted pulse sequences were obtained. ml of 19cc clariscan contrast material was administered intravenously for the contrast portion of the examination. COMPARISON: Head CT dated January 08, 2023 FINDINGS: Internal auditory canal findings: Normal bilateral temporal bones. Normal bilateral internal auditory canals. There is no demonstrated intracanalicular or cisternal vestibular schwannoma (acoustic neuroma). There is no enhancement of the bilateral VIIth or VIIIth cranial nerves. Normal bilateral cochlea, vestibules and semicircular canals. No mastoid air cell opacification is present. No cerebellar pontine angle mass or cyst is seen. There is no demonstrated lesions of the cavernous sinus. No nodularity or abnormal enhancement is seen in the 7th or 8th cranial nerves within IACs. No demonstrated Mondini''s malformation. BRAIN FINDINGS: Normal size of the ventricles and extra-axial spaces for the patient''s age. Normal white matter tracts of the supratentorial brain. There are no demyelinating plagues of the supratentorial brain, brainstem or cerebellum. There are no findings suspicious for multiple sclerosis (MS). There is no evidence for recent intracranial ischemia or other cause of cytotoxic edema on diffusion weighted imaging (DWI). Normal bilateral frontal poles, and orbital frontal and gyrus recti of the frontal lobes. Normal bilateral temporal tips of the temporal lobes. There are no white matter shear injuries (diffuse axonal injuries). There are no parenchymal hemorrhages or hematomas. There are no findings to suggest prior closed head parenchymal injury of the brain. No hydrocephalus or midline shift is present. There are no visualized ring-enhancing lesions of the brain parenchyma or abnormal thickening or enhancement of the meninges or dura. Normal bilateral basal ganglia. Normal thalami. Normal flow voids within the major intracranial circulation suggesting patency by spin echo criteria. Normal venous enhancement. There is no enhancing intra-axial or extra-axial abnormality. There is no extra-axial fluid accumulation. Normal sella turcica, pituitary gland, infundibular stalk, optic chiasm and hypothalamus. Normal tectal plate and pineal gland. Normal midbrain, chayo and medulla. Normal cerebellum. Normal basal cisterns. No demonstrated orbital abnormality, within the constraints of a routine brain study. Normal visualized paranasal sinuses. Normal calvarium and skull base. Normal visualized soft tissue structures. Normal visualized upper cervical spine. MRI/Brain W/WO Contrast IMPRESSION: 1. Normal unenhanced and enhanced MRI of the bilateral internal auditory canals (I.A.C''s). 2. Normal enhanced MRI of the brain. Electronically Signed: Tee Oliver MD at 8:37 EDT ,
--- NOTE | 2024-05-31 15:32 | MRI_ITS ---
STUDY: MRA OF THE HEAD WITHOUT CONTRAST REASON FOR EXAM: Male, 49 years old. Headaches, pulsing right ear, hypertension TECHNIQUE: 3-D [id number] (TOF) imaging was performed with MIPs. The study was performed unenhanced. COMPARISON: None. FINDINGS: Normal bilateral petrous carotid arteries. Normal right cavernous carotid artery with a normal supraclinoid bifurcation. Normal left cavernous carotid artery with a normal supraclinoid bifurcation. Normal right A1 segments of the anterior cerebral artery. Normal left A1 segments of the anterior cerebral artery. Normal intact anterior communicating artery (ACOM). Normal bilateral A2 segments of the anterior cerebral arteries. Normal right M1 and M2 segments of the middle cerebral arteries, with a normal M1 bifurcation. Normal left M1 and M2 segments of the middle cerebral arteries, with a normal M1 bifurcation. Normal right posterior communicating artery (PCOM). Normal left posterior communicating artery (PCOM). Normal bilateral vertebral arteries. Normal basilar artery with a normal basilar bifurcation. The visualized bilateral superior cerebellar (SCA) arteries are normal. Normal bilateral P1, P2 and visualized P3 segments of the posterior cerebral arteries. There is no demonstrated aneurysm of the [place]. There is no major vessel occlusion or hemodynamically significant stenosis. There is no demonstrated abnormality of the visualized brain. MRI/MRA Head ONLY without Contrast IMPRESSION: 1. Normal MRA of the head Electronically Signed: Tee Oliver MD at 8:41 EDT ,
== END | disposition home or self-care (01) ==
LOC: MRI 15:29
PROVIDERS: PCP Internal Medicine; Referring Provider Internal Medicine; Visit Provider Internal Medicine
DX: R51.9 Headache, unspecified (principal); I10 Essential (primary) hypertension
CPT/HCPCS: 70544; 70553; A9575

== ENCOUNTER → 2024-11-22 | Outpatient (CLI) | payer BC, SELFPAY ==
--- NOTE | 2024-11-22 08:32 | MRI_ITS ---
EXAM: MRI lumbar spine without contrast. CLINICAL HISTORY: Back pain COMPARISON: Lumbar spine radiograph 10/19/2024 TECHNIQUE: Multiplanar multisequence MRI of the lumbar spine without contrast. FINDINGS: There is normal lumbar lordosis. The lumbar vertebral bodies are normal in height. No evidence of compression fracture. Alignment is normal. No listhesis. The bone marrow signal is unremarkable. There is no abnormal bone STIR signal. The included distal thoracic cord is normal in caliber and signal. The conus medullaris terminates at L1 level. There is no clumping of the nerve roots. T12/L1: No significant canal stenosis or neural foraminal narrowing. L1/2: No significant canal stenosis or neural foraminal narrowing.. L2/3: No significant canal stenosis or neural foraminal narrowing.. L3/4: Small disc bulge with flattening of the ventral thecal sac. No significant canal stenosis or neural foraminal narrowing. L4/5: Disc protrusion with annular tear, mild facet degenerative changes with mild canal stenosis. Mild left neural foraminal narrowing. Right neural foramen is patent.. L5/S1: Circumferential disc bulge with superimposed asymmetric disc protrusion to the right extending to the subarticular recess with moderate canal stenosis. [id number]-left subarticular recess narrowing. Mild bilateral facet degenerative changes are also noted. Mild bilateral neural foraminal narrowing.. The visualized prevertebral and paraspinal soft tissues are unremarkable. MRI/Spine Lumbar (Routine) IMPRESSION: 1. Multilevel degenerative changes as detailed above including L4-L5 and L5-S1. ; at L4-L5 there is annular fissure tear with mild canal stenosis. 2. At L5-S1, there is moderate canal stenosis and neural foraminal narrowing wi th subarticular recess narrowing. Reading Location: [facility]
== END | disposition home or self-care (01) ==
PROVIDERS: PCP Internal Medicine; Referring Provider Student in an Organized Health Care Education/Training Program; Visit Provider Student in an Organized Health Care Education/Training Program
DX: M54.16 Radiculopathy, lumbar region (principal)
CPT/HCPCS: 72148

== ENCOUNTER → 2025-06-21 | Outpatient (CLI) | payer BC, SELFPAY ==
--- NOTE | 2025-06-21 11:28 | STRESSREP_ITS ---
Stress Test Report
--- NOTE | 2025-06-21 11:28 | STRESSREP ---
Stress Test Report Date: 06/21/2025 Procedure: Pharmacologic stress nuclear imaging study Indications: Abnormal ECG Consent: Per the patient Procedure: The patient underwent pharmacologic (Regadenoson 0.4mg ) evaluation with a peak heart rate of 112 beats per minute (65%predicted maximal heart rate) and a peak blood pressure of 172/104 mmHg. The baseline ECG demonstrated sinus rhythm with nonspecific ST changes. The peak pharmacologic ECG was nondiagnostic. There were no cardiac dysrhythmias pretest, during pharmacologic infusion, or recovery. There was no complaint of chest discomfort during pharmacologic infusion or recovery. The patient was injected with 13.9 millicuries of technetium 99m Cardiolite and subsequently rest SPECT Cardiolite nuclear imaging was obtained in the horizontal long, vertical long, and short axis views. The patient underwent pharmacologic (Regadenoson) evaluation. The patient was injected with 44.6 millicuries of technetium 99m Cardiolite and subsequently stress SPECT Cardiolite nuclear imaging was obtained in the horizontal long, vertical long, and short axis views. A gated Cardiolite study at peak stress was obtained. The examination was stopped secondary to completion of protocol. Rest and stress SPECT Cardiolite nuclear imaging status post realignment, normalization, and attenuation correction demonstrate no fixed or reversible perfusion defects. There is end systolic thickening and brightening. The gated Cardiolite study demonstrates myocardial thickening and inward wall motion. The reported LVEF is 59%. Impression: 1. Pharmacologic (Regadenoson) evaluation 2. Peak pharmacologic ECG with no diagnostic changes. 3. There were no cardiac dysrhythmias pretest, during pharmacologic infusion, or recovery. 5. Rest and stress SPECT Cardiolite nuclear imaging demonstrate relative uniform tracer uptake and myocardial perfusion appearing within normal limits. 6. The gated Cardiolite study reports an LVEF of 59%. This note was generated with [employer] software. It may contain incorrect words, spelling, and punctuation that were not noted in checking the note before signing.
== END | disposition home or self-care (01) ==
LOC: CVS 07:06
PROVIDERS: PCP Internal Medicine; Referring Provider Internal Medicine; Visit Provider Internal Medicine
DX: Z01.818 Encounter for other preprocedural examination (principal); R94.31 Abnormal electrocardiogram [ECG] [EKG]; M54.16 Radiculopathy, lumbar region
CPT/HCPCS: 78452; 93017; A9500; A4216; J2785

== ENCOUNTER 2025-08-16 19:47 | Emergency (ER) | payer BC, SELFPAY ==
[2025-08-16 19:47] VITALS: BP 198/94; PULSE 89; RESP 20; TEMP 36.7; O2SAT 99; BMI 33.0
--- NOTE | 2025-08-16 20:03 | EKG12_ITS ---
Test Reason : CP Blood Pressure : */* mmHG Vent. Rate : 80 BPM Atrial Rate : 80 BPM P-R Int : 152 ms QRS Dur : 104 ms QT Int : 382 ms P-R-T Axes : 22 30 -8 degrees QTcB Int : 440 ms Normal sinus rhythm Normal ECG Confirmed by Hesham Willett ([id number]), online content editor TBA TRAN ([id number]) on 08/19/2025 8:14:16 AM Referred By: RU Confirmed By: Hesham Willett
--- NOTE | 2025-08-16 20:10 | RAD_ITS ---
PROCEDURE: CHEST PA AND LATERAL 08/16/2025 REASON FOR EXAM: CHEST PAIN TECHNIQUE: Procedure Code: RADCXR Modality: DX Procedure: CHEST PA AND LATERAL COMPARISON: 01/08/2023 FINDINGS: Lungs/Pleura: Clear. Heart/Mediastinum: Normal in size. Bones/Soft tissues: Mild degenerative changes of the spine. RAD/Chest PA and Lateral IMPRESSION: No acute cardiopulmonary disease. Reading Location: [id number]
--- NOTE | 2025-08-16 20:12 | US_ITS ---
PROCEDURE: GALLBLADDER 08/16/2025 REASON FOR EXAM: RUQ PAIN TECHNIQUE: Procedure Code: USGB Modality: US Procedure: GALLBLADDER FINDINGS: GALLBLADDER: No gallstones. no gallbladder wall thickening or pericholecystic fluid. Negative Simons sign. COMMON BILE DUCT: Measures 3.1 Mm. No intrahepatic biliary dilatation. LIVER: Normal size. increased echotexture. No definite hepatic mass. RIGHT KIDNEY: Normal in size and echogenicity. No mass. No urinary stones. No hydronephrosis. Pancreas: Nonspecific echogenic US/Gallbladder IMPRESSION: No acute cholecystitis. Hepatic steatosis. Nonspecific echogenicity of the pancreas. Reading Location: [facility]
[2025-08-16 20:31] VITALS: BP 177/88; PULSE 81; RESP 20; O2SAT 95
[2025-08-16 20:32] LABS: Hematocrit 41.9 % (40-54); Hemoglobin 14.2 g/dL (13.0-16.5); Immature Granulocytes Count 0.030 X10^3/uL (0.0-0.0); Mean Corp Hgb Conc 33.9 g/dL (32-36); Mean Corpuscular Volume 80.4 fL (80-94); Mean Platelet Vol. 10.0 fl (6.2-12.0); NRBC Flagged by Analyzer 0 % (0-5); Platelet Count 305 K/mm3 (150-450); RBC Distribution Width CV 12.0 % (11.6-14.6); RBC Distribution Width SD 34.7 fl (35.1-43.9); Red Blood Count 5.21 M/mm3 (4.6-6.2); White Blood Count 6.7 K/mm3 (4.4-11.0)
--- OUTSIDE RECORDS SUMMARY | 2025-08-16 20:37 | XMS RPT_ITS | CCD ---
Author Organization [facility] Care Team Providers Care Medical Records Coder Name Role Phone Dr. Clara Keller Primary Care Provider [phone] Dr. Clara Keller Referring Provider [phone] Dr. Marianela Tam Attending Provider [phone] Clara Keller Referring Provider [phone] Catrachita HUNT, TINA Webber Attending Provider [phone] Dr. Marianela Tam Primary Care Provider Dr. Marianela Tam MD Primary Care Provider [phone] Dr. Marianela Tam MD Referring Provider Aneta Wright Attending Provider Dr. Luigi Ramos MD Attending Provider Aneta Wright Referring Provider Unavailable Primary Care Provider Unavailkaylyn e ADITYA LAMA Referring Unavailable MARIANELA TAM Primary Care Unavailable ADITYA LAMA Referring Unavailable Dr. Marianela Tam MD Primary Care Physician [phone] Dr. Marianela Tam MD Attending Physician Dr. Marianela Tam MD Referring Provider Anel MAYER, Dr. Encarnacion Nurse Practitioner Anson MAYER, Dr. Kiran Attending Physician ADITYA LAMA Attending Unavailable ADITYA LAMA Attending Unavailable ADITYA LAMA Referring Unavailable ANEL, MARIANELA M Primary Care Unavailable HAWRYLUK, ADITYA Referring Unavailable ANEL, MARIANELA M Primary Care Unavailable ANEL, MARIANELA M Primary Care Unavailable ADITYA LAMA Admitting Unavailable ADITYA LAMA Attending Unavailable ARLENELUK, ADITYA Referring Unavailable ANEL, MARIANELA M Primary Care Unavailable ANEL, MARIANELA M Primary Care Unavailable Aneta Marrero Attending Unavailable JanesAneta Referring Unavailable Anel, Marianela Primary Care Unavailable Anel, Marianela Attending Unavailable Anel, Marianela Referring Unavailable Anel, Marianela Primary Care Unavailable Janes, Aneta Attending Unavailable Anel, Marianela Referring Unavailable Anel, Marianela Primary Care Unavailable Anel, Marianela Attending Unavailable Anel, Marianela Primary Care Unavailable Luigi Ramos Attending Unavailable Anel, Marianela Primary Care Unavailable Anel, Marianela Attending Unavailable Anel, Marianela Primary Care Unavailable Anel, Marianela Referring Unavailable Anel, Marianela Primary Care Unavailable Anel, Marianela Consulting Unavailable Magno Griggs Attending Unavailable Aneta Marrero Attending Unavailable Anel, Marianela Referring Unavailable Anel, Marianela Primary Care Unavailable Allergies Allergy Classification Reported Allergen(s) Allergy Type Date of Onset Reaction(s) Facility (5 sources) varenicline; Translations: [VARENICLINE] Drug Allergy 06-11-2018 Intolerance [facility] Work Phone: Medications Current Medications Medication Drug Class(es) Dates Sig (Normalized) Sig (Original) acetaminophen 325 mg / HYDROcodone bitartrate 5 mg oral tablet (1 source) Opioid Agonist Start: 06-09-2025 End: 06-16-2025 Hydrocodone-Acetami nophen 5-325 mg tablet Discontinued 1 {tbl} PO TWICE A DAY as needed for pain 14 7 0 June 09, 2025 June 15, 2025 12:00am June 16, 2025 12:11am Lumbar radiculopathy Radiculopathy, lumbar region diazePAM 5 mg oral tablet (5 sources) Benzodiazepine Start: 06-09-2025 take 1 tablet by mouth once for anxiety Start: 03-03-2023 End: 10-19-2024 take 1 tablet by mouth at bedtime as needed for anxiety Diazepam (Valium) 5 mg tablet Discontinued 5 mg PO AT BEDTIME as needed for anxiety 1 0 May 03, 2024 10:25am October 19, 2024 11:34am Take 30 minutes prior to MRI gabapentin 300 mg oral capsule (3 sources) Anti-epileptic Agent Start: 06-09-2025 take 1 capsule by mouth twice daily Start: 03-09-2025 take 1 capsule by mo [facility] twice daily gabapentin (NEURONTIN) 300 mg capsule TAKE 1 CAPSULE BY MOUTH TWICE DAILY FOR 28 DAYS 03/09/2025 Active labetalol hydrochloride 100 mg oral tablet (20 sources) beta-Adrenergic Lindsay Start: 02-12-2025 take 1 tablet by mouth every twelve hours labetalol (TRANDATE) 100 mg tablet Take 1 tablet by mouth every 12 hours. 02/12/2025 Active Start: 05-03-2024 take 1 tablet by omid twice daily Start: 06-27-2022 take 1 tablet by omid th twice daily Labetalol Active 50 MG PO TWICE A DAY June 27, 2022 2:23pm take 1/2 tab to equal 50 mg BID Start: 06-27-2022 End: 05-03-2024 Labetalol 100 mg tablet Disc ontinued 50 mg PO TWICE A DAY April 28, 2024 4:33pm May 03, 2024 1:35pm take 1/2 tab to equal 50 mg BID Start: 11-07-2021 End: 04-09-2022 take 1 tablet by mouth twice daily Labetalol 100 mg tablet Discontinued 100 mg PO TWICE A DAY 60 2 November 07, 2021 12:00am April 09, 2022 1:02pm LORazepam 2 mg oral tablet (4 sources) Benzodiazepine Start: 11-19-2024 LORazepam (ATI VAN) 2 mg tab 2 mg. 11/19/2024 Active Start: 11-19-2024 End: 11-25-2024 take 1 tablet by mouth once Lorazepam (Ativan) 2 mg ta blet Discontinued 2 mg PO ONCE 2 0 November 19, 2024 12:00am November 25, 2024 10:05am Claustrophobia prior to MRI meclizine hydrochloride 25 mg oral tablet (2 sources) Antiemetic Start: 02-23-2019 meclizine (ANTIVERT) 25 mg tab 4 TIMES DAILY NEEDED PRN For Dizziness 02/23/2019 Active meloxicam 7.5 mg oral tablet (4 sources) Nonsteroidal Anti-inflammatory Drug Start: 04-05-2025 take 1 tablet by mouth once daily meloxicam (MOBIC) 7.5 mg tablet Take 1 tablet by mouth once daily. 04/05/2025 Active Start: 10-19-2024 End: 11-25-2024 take 1 tablet by mouth once daily Meloxicam 15 mg tablet Discontinued 15 mg PO daily 30 0 October 19, 2024 1:00am November 25, 2024 10:04am propranolol hydrochloride 20 mg oral tablet (3 sources) beta-Adrenergic Lindsay Start: 04-14-2019 propra nolol (INDERAL) 20 mg tablet Indications: Situational anxiety Take 1 tablet by mouth as needed (30-60 minutes prior to stressful events). 30 tablet 1 04/14/2019 Active Completed/Discontinued Medications Medication Drug Class(es) Dates Sig (Normalized) Sig (Original) [id number] 04 ointment (2 sources) Start: 07-13-2020 End: 11-07-2021 [id number] 4 ointment Discontinued 1 NMA .Route TWICE A DAY July 13, 2020 1:00am November 07, 2021 10:44am apply to suppository and insert into rectum twice daily Start: 07-13-2020 End: 11-07-2021 [id number] ointme nt Discontinued 1 NMA .Route TWICE A DAY July 13, 2020 1:00am November 07, 2021 10:44am apply to suppository and insert into rectum twice daily aspirin 81 mg delayed release oral tablet (15 sources) Platelet Aggregation Inhibitor, Nonsteroidal Anti-inflammatory Drug Start: 08-23-2019 End: 06-28-2020 take 1 tablet by mouth once daily Aspirin 81 mg tablet,delayed release (DR/EC) Discontinued 81 mg PO DAILY@0800 90 September 16, 2019 11:11am June 28, 2020 3:27pm atorvastatin 80 mg oral tablet (20 sources) HMG-CoA Reductase Inhibitor Start: 06-28-2020 End: 11-07-2021 Atorvastatin 80 mg tablet Discontinued 20 mg PO AT BEDTIME June 28, 2020 3:27pm November 07, 2021 10:44am Start: 06-28-2020 End: 11-07-2021 take 20 mg by mouth at bedtime Atorvastatin Discontinu ed 20 MG PO AT BEDTIME June 28, 2020 3:27pm November 07, 2021 10:44am Start: 08-23-2019 End: 06-28-2020 take 1 tablet by mouth at bedtime Atorvastatin 80 mg tablet Discontinued 80 mg PO AT BEDTIME 90 3 September 16, 2019 11:11am June 28, 2020 3:29pm 24 hr buPROPion hydrochloride 150 mg extended release oral tablet (9 sources) Aminoketone Start: 09-16-2019 End: 06-28-2020 take 1 tablet by mouth once daily in the morning Bupropion Hcl 150 mg tablet extended release 24 hr Discontinued 150 mg PO EVERY MORNING September 16, 2019 1:00am June 28, 2020 3:28pm Start: 09-15-2019 take 1 tablet by omid th twice daily buPROPion SR (WELLBUTRIN SR) 150 mg 12 hr tablet Indications: Tobacco use Take 1 tablet by mouth twice daily. 60 tablet 2 09/15/2019 Active cyclobenzaprine hydrochloride 5 mg oral tablet (4 sources) Muscle Relaxant Start: 10-19-2024 End: 06-09-2025 take 1 tablet by mouth three times daily as needed for muscle spasms Cyclobenzaprine 5 mg tablet Discontinued 5 mg PO THREE TIMES A DAY as needed for muscle spasm 30 0 October 19, 2024 1:00am June 09, 2025 11:41am Start: 07-06-2024 End: 10-19-2024 take 1 tablet by mouth three times daily as needed for pain Cyclobenzaprine 10 mg tablet Discontinued 10 mg PO THREE TIMES A DAY as needed for back pain/sciatica 20 0 July 06, 2024 1:00am October 19, 2024 11:33am Do not operate dangerous equipment or drive while using medication. Medication may be sedating. dilTIAZem (4 sources) Calcium Channel Lindsay Start: 07-13-2020 End: 11-07-2021 diltiazem HCl Discontinued 1 EACH .Route TWICE A DAY July 13, 2020 7:51am November 07, 2021 10:44am apply to suppository and insert into rectum twice daily Start: 07-13-2020 End: 11-07-2021 diltiazem HCl Discontinued 1 EACH .Route TWICE A DAY July 13, 2020 1:00am November 07, 2021 10:44am apply to suppository and insert into rectum twice daily escitalopram 5 mg oral tablet (12 sources) Serotonin Reuptake Inhibitor Start: 06-02-2024 End: 06-09-2025 take 1 tablet by mouth once daily Escitalopram Oxalate (Lexapro) 5 mg tablet Discontinued 5 mg PO daily 90 July 06, 2024 4:54pm June 09, 2025 11:41am Start: 03-03-2023 End: 05-03-2024 take 1 tablet by mouth once daily Escitalopram Oxalate (Lexapro) 10 mg tablet Discontinued 10 mg PO DAILY 90 March 03, 2023 12:00am May 03, 2024 9:59am Start: 06-28-2020 End: 11-07-2021 take 1 tablet by mouth once daily Escitalopram Oxalate 10 mg tablet Discontinued 10 mg PO DAILY June 28, 2020 1:00am November 07, 2021 10:44am hydrocortisone acetate 25 mg rectal suppository (6 sources) Corticosteroid Start: 07-13-2020 End: 11-07-2021 Hydrocortisone Acetate (Hemmorex-Hc) 25 mg suppository Discontinued 25 mg RC TWICE A DAY 24 July 13, 2020 1:00am November 07, 2021 10:44am ibuprofen 200 mg oral capsule (5 sources) Nonsteroidal Anti-inflammatory Drug Start: 12-12-2021 End: 04-09-2022 take 1 capsule by mouth every six hours as needed Ibuprofen 200 mg capsule Discontinued 200 mg PO EVERY 6 HOURS as needed December 12, 2021 12:00am April 09, 2022 1:02pm lisinopril 40 mg oral tablet (20 sources) Angiotensin Converting Enzyme Inhibitor Start: 06-28-2020 End: 11-07-2021 take 10 mg by mouth once daily Lisinopril 40 mg tablet Discontinued 10 mg PO DAILY June 28, 2020 3:28pm November 07, 2021 10:44am Start: 06-28-2020 End: 11-07-2021 take 10 mg by mouth once daily Lisinopril Discontinued 10 MG PO DAILY June 28, 2020 3:28pm November 07, 2021 10:44am Start: 09-16-2019 End: 06-28-2020 take 1 tablet by mouth once daily Lisinopril 40 mg tablet Discontinued 40 mg PO DAILY 90 September 16, 2019 1:00am June 28, 2020 3:29pm Start: 09-16-2019 End: 09-16-2019 take 1 tablet by mouth once daily Lisinopril 20 mg tablet Discontinued 20 mg PO DAILY 90 September 16, 2019 1:00am September 16, 2019 11:20am Start: 08-21-2019 End: 09-16-2019 take 2 tablets by mouth once daily Lisinopril 10 MG tablet Discontinued 20 mg PO DAILY August 21, 2019 11:52pm September 16, 2019 11:12am Start: 08-21-2019 End: 09-16-2019 take 20 mg by mouth once daily Lisinopril Discontinued 20 MG PO DAILY August 21, 2019 11:52pm September 16, 2019 11:12am Start: 06-10-2018 End: 08-21-2019 take 1 tablet by mouth once daily Lisinopril (Prinivil) 10 MG tablet Discontinued 10 mg PO DAILY 30 June 10, 2018 12:00am August 21, 2019 11:52pm methylPREDNISolone 4 mg oral tablet (2 sources) Corticosteroid Start: 07-06-2024 End: 10-19-2024 take 1 tablet by mouth once Methylprednisolone (Medrol (Holden)) 4 mg tablets,dose pack Discontinued 0 PO per package directions 21 July 06, 2024 1:00am October 19, 2024 11:34am PO PER PKG DIR for 6 days 24 hr metoprolol succinate 25 mg extended release oral tablet (20 sources) beta-Adrenergic Lindsay Start: 09-16-2019 End: 06-28-2020 take 1 tablet by mouth once daily Metoprolol Succinate 25 mg tablet extended release 24 hr Discontinued 25 mg PO DAILY 90 September 16, 2019 11:18am June 28, 2020 3:28pm Start: 08-23-2019 End: 09-16-2019 take 1 tablet by mouth twice daily Metoprolol Tartrate 25 mg tablet Discontinued 25 mg PO TWICE A DAY 180 September 16, 2019 11:12am September 16, 2019 11:17am rosuvastatin calcium 10 mg oral tablet (10 sources) HMG-CoA Reductase Inhibitor Start: 06-27-2022 End: 03-03-2023 take 1 tablet by mouth once daily Rosuvastatin 10 mg tablet Discontinued 10 mg PO DAILY 90 3 June 27, 2022 2:24pm March 03, 2023 10:42am Start: 11-12-2021 End: 04-09-2022 take 1 tablet by mouth once daily Rosuvastatin 10 mg tablet Discontinued 10 mg PO DAILY 30 5 November 12, 2021 12:00am April 09, 2022 1:02pm traMADol hydrochloride 50 mg oral tablet (2 sources) Opioid Agonist Start: 11-04-2024 End: 11-25-2024 take 1 tablet by mouth every eight hours as needed for pain Tramadol 50 mg tablet Discontinued 50 mg PO Q8H as needed for Severe pain 20 November 04, 2024 12:00am November 25, 2024 10:05am Problems Active Problems Problem Classification Problem Date Documented Da te Episodic/Chronic Abdominal pain (3 sources) Abdominal pain; Translations: [Unspecified abdominal pain] 02-26-2023 Episodic Administrative/social admission (9 sources) Patient encounter status; Translations: [Persons encountering health services in other specified circumstances] Episodic Anxiety disorders (11 sources) Anxiety; Translations: [Anxiety disorder, unspecified] Onset: 4 Chronic Conditions associated with dizziness or vertigo (7 sources) Dizziness; Translations: [Dizziness and giddiness] 03-25-2019 Episodic Coronary atherosclerosis and other heart disease (11 sources) Preinfarction syndrome; Translations: [Unstable angina] Onset: 0 07-13-2020 Chronic Disorders of lipid metabolism (15 sources) Hyperlipidemia; Translations: [Hyperlipidemia, unspecified] Onset: 0 Chronic Essential hypertension (11 sources) Hypertensive disorder; Translations: [Essential (primary) hypertension] Onset: 4 Chronic Gastrointestinal hemorrhage (7 sources) Rectal hemorrhage; Translations: [Hemorrhage of anus and rectum] 06-28-2020 Episodic Headache; including migraine (2 sources) Headache; Translations: [Headache] 03-03-2023 Episodic Headache; including migraine (1 source) Headache; including migraine; Translations: [Headache, unspecified] Onset: 4 Nonspecific chest pain (14 sources) Chest pain; Translations: [Chest pain, unspecified] 03-25-2019 Episodic Other ear and sense organ disorders (4 sources) Past history of procedure; Translations: [Myringotomy tube(s) status] 04-09-2022 Chronic Other nervous system disorders (2 sources) Paresthesia; Translations: [Paresthesia of skin] 05-02-2025 Episodic Other nervous system disorders (2 sources) Paresthesia of skin; Translations: [Tingling sensation] Onset: Episodic Other non-traumatic joint disorders (4 sources) Shoulder pain; Translations: [Pain in unspecified shoulder] 04-09-2022 Episodic Other nutritional; endocrine; and metabolic disorders (6 sources) Body mass index 30+ - obesity; Translations: [Body mass index (BMI) greater than 30 in adult] Chronic Other nutritional; endocrine; and metabolic disorders (1 source) Obesity, unspecified; Translations: [Obesity (BMI 30-39.9)] Onset: Chronic Other screening for suspected conditions (not mental disorders or infectious disease) (4 sources) Electrocardiogram abnormal; Translations: [Abnormal electrocardiogram [ECG] [EKG]] Onset: 5 06-09-2025 Episodic Residual codes; unclassified (12 sources) Sleep apnea; Translations: [Sleep apnea, unspecified] 12-12-2021 Chronic Comment on above: AHI noted to be 49.5 Residual codes; unclassified (3 sources) Sleep apnea, unspecified; Translations: [Obstructive sleep apnea (adult)(pediatric)] Chronic Residual codes; unclassified (1 source) Obstructive sleep apnea (adult) (pediatric); Translations: [TEODORA (obstructive sleep apnea)] Onset: Chronic Residual codes; unclassified (7 sources) Tobacco user; Translations: [Tobacco use] 07-13-2020 Episodic Residual codes; unclassified (4 sources) Tobacco use and exposure - finding; Translations: [Tobacco use] 05-02-2025 Episodic Screening and history of mental health and substance abuse codes (1 source) Personal history of nicotine dependence; Translations: [Former smoker] Onset: Episodic Spondylosis; intervertebral disc disorders; other back problems (20 sources) Chronic pain; Translations: [Cervicalgia] Onset: 5 04-09-2022 Episodic Substance-related disorders (1 source) Nicotine dependence, other tobacco product, uncomplicated; Translations: [Nicotine dependence, other tobacco product, uncomplicated] Onset: 5 Chronic Unclassified (1 source) M54.16 - Radiculopathy, lumbar region Unclassified (2 sources) Head finding 03-03-2023 Unclassified (1 source) Low back pain, unspecified back pain laterality, unspecified chronicity, unspecified whether sciatica present; Translations: [Low back pain, unspecified back pain laterality, unspecified chronicity, unspecified whether sciatica present] Onset: 5 Unclassified (1 source) Low back pain, unspecified; Translations: [Low back pain, unspecified] Onset: 5 Viral infection (4 sources) Disease caused by 2019-nCoV; Translations: [COVID-19] 04-09-2022 Episodic Past or Other Problems Problem Classification Problem Date Documented Date Episodic/Chronic Residual codes; unclassified (7 sources) History of cardiac catheterization; Translations: [Other specified postprocedural states] Onset: 08-23-2019 07-13-2020 Episodic Comment on above: LEFT MAIN: Angiograp hically normal; LEFT ANTERIOR DESCENDING ARTERY: Angiographically normal; CIRCUMFLEX ARTERY: Angiographically normal; RIGHT CORONARY ARTERY: PROX RCA: Mild luminal irregularities less than 30% 08/23/2019 per [facility] @ [facility] Residual codes; unclassified (4 sources) Tobacco use; Translations: [Tobacco use disorder] Onset: 09-15-2019 Episodic Results Test Name Value Interpretation Reference Range Facility ANES POSTPROC EVALon 025 ANES POSTPROC EVAL HNO ID: [id number] Author: GULSHAN AVILES MD Service: Anesthesiology Author Type: Anesthesiologist Type: Anesthesia Postprocedure Evaluation Filed: 06/30/2025 11:20 Note Text: POST ANESTHESIA EVALUATION NOTE : 1975 Procedure Summary Date: 06/30/25 Room / Location: [facility] OR OR Anesthesia Start: 0757 Anesthesia Stop: 105 Procedures: MICROSURGICAL TECHNIQUE FOR SPINAL PROCEDURES - Open left L5/S1 microdiscectomy (Left: Back lower ) DISCOTOMY LUMBAR LEVEL 1 (Back lower ) Diagnosis: Lumbar radiculopathy (Lumbar radiculopathy [M54.16]) Surgeons: Aditya Lama MD, PhD Responsible Provider: Gulshan Aviles MD Anesthesia Type: general ASA Status: 3 Anesthesia Type: general Airway Type: ETT Last Vitals Vitals Value Taken Time BP 150/79 06/30/25 11:15 Temp 37.1 ?C (98.8 ?F) 06/30/25 10:42 Pulse 87 06/30/25 11:18 Resp 19 06/30/25 11:18 SpO2 96 % 06/30/25 11:18 Vitals shown include unfiled device data. Post Anesthesia Patient Status Patient Evaluation: PACU. PACU/ICU Patient Condition: stable. Neurological Status: aware and responsive. Pulmonary Status: breathing comfortably on supplemental oxygen Airway Control: returned to baseline unsupported. Cardiovascular Status: stable. Pain Management: clinically adequate Postoperative Hydration: acceptable. Intraoperative Events: no significant anesthesia events Post Operative Nausea/Vomiting Status: no significant post operative nausea or vomiting Recommendation: continue current plan of care. Anesthesia Observations No Documentation SIGNATURE: Gulshan Aviles MD PATIENT NAME: Josie Correa DATE: June 30, 2025 TIME: 11:19 AM CSN: [id number] [facility] ANES PRE-OPon 06-30-2025 ANES PRE-OP HNO ID: [id number] Author: GULSHAN AIVLES MD Service: Anesthesiology Author Type: Anesthesiologist Type: Anesthesia Preprocedure Evaluation Filed: 06/30/2025 07:48 Note Text: ANESTHESIOLOGY DAY OF SURGERY NOTE : 1975 Procedure Information Date/Time: 06/30/25 0800 Procedures: MICROSURGICAL TECHNIQUE FOR SPINAL PROCEDURES - Open left L5/S1 microdiscectomy (Left: Back lower ) DISCOTOMY LUMBAR LEVEL 1 (Back lower ) Location: [facility] 02 / [facility] Surgeons: Aditya Lama MD, PhD Estimated body mass index is 33.36 kg/m? as calculated from the following: Height as of 06/09/25: 170.2 cm (5' 7). Weight as of 06/09/25: 96.6 kg (213 lb). Most recent hematocrit and potassium results: Hematocrit 43.3 06/09/2025 Potassium 3.8 06/09/2025 Relevant Problems ANESTHESIA (+) TEODORA (obstructive sleep apnea) CARDIO (+) Unstable angina (HCC) PULMONARY (+) TEODORA (obstructive sleep apnea) [facility] clear coronaries (2019) Normal echo (2019) I - PHYSICAL EVALUATION AIRWAY Patient intubated: No. Tracheostomy tube not present Mallampati: II. TM distance: >3 FB. Neck ROM: full ROM without neurological symptoms. Mouth openin FB. Short neck: yes. Thick neck: yes DENTAL Dentures, upper: partial. Dentures, lower: partial. Additional exam findings: yes. CARDIOVASCULAR Rhythm: regular Rate: normal PULMONARY Breath sounds clear to auscultation. II - ANESTHESIA PLAN ASA Score: 3 Anesthetic Plan: general Airway type: ETT The patient is not a current smoker. NPO Status: adequate Monitoring Plan Monitoring plan: standard ASA. Post Procedure Analgesic Plan Postoperative analgesic plan: multimodal analgesia. Informed Consent Anesthetic risks, benefits, alternatives, personnel and consent discussed: yes. Patient / Responsible Alliance Party agrees to proceed: yes Patient / Surrogate agrees to blood products: Yes Vitals Value Taken Time BP 170/80 06/30/25 07:01 Pulse 94 06/30/25 07:01 Resp 16 06/30/25 07:01 Temp 36.8 ?C (98.2 ?F) 06/30/25 07:01 SpO2 96 % 06/30/25 07:01 Facility-Administered Medications as of 06/30/2025 Medication Dose Route Frequency lactated ringers iv infusion 5-30 mL/hr INTRAVENOUS CONTINUOUS Outpatient Medications as of 06/30/2025 Medication Sig gabapentin (NEURONTIN) 300 mg capsule TAKE 1 CAPSULE BY MOUTH TWICE DAILY FOR 28 DAYS labetalol (TRANDATE) 100 mg tablet Take 1 tablet by mouth every 12 hours. [] diazePAM (VALIUM) 5 mg tablet Take 1 tablet 60 minutes prior to MRI, may repeat 1 tablet right before MRI/during if needed. Patient should start on June 06, 2025. I have interviewed and examined the patient. I have reviewed the medical record and/or the pre-anesthesia evaluation, pertinent labs, and test results. This contains updated information obtained within 48 hours of Surgery/Procedure. SIGNATURE: Gulshan Aviles MD PATIENT NAME: Josie Correa DATE: June 30, 2025 TIME: 7:17 AM CSN: [id number] Normal [facility] HISTORY PHYSICALon HISTORY PHYSICAL HNO ID: [id number] Author: ADITYA LAMA MD, PhD Service: Neurosurgery Author Type: Physician Type: H&P Filed: 06/30/2025 08:02 Note Text: UPDATED HISTORY AND PHYSICAL EXAMINATION SERVICE DATE: 06/30/2025 SERVICE TIME: 08h PHYSICAL EXAM MUST BE COMPLETED ON ADMISSION The History and Physical (completed in the past 30 days) has been reviewed and the patient has been examined. The contents accurately reflect the patient's condition with the following additions or revisions since the HANDP was completed. I met with Josie and his family in the preoperative area at 7:45 AM on June 30, 2025. Josie reports that his symptoms have worsened. He is recently completed MRI confirms persistent presence of a left-sided disc herniation at L5-S1 which is consistent with his symptomatology. He continues to have left-sided S1 distribution numbness and weak plantarflexion. His family states that his pain has been so bad that he is having difficulty standing up. He confirms that he has not had any recent blood thinners and would like to proceed with the surgery today. We performed a preoperative timeout using the universal protocol. This did not identify any concerns. All parties present were in agreement we should proceed with the surgery. We agreed to administer preoperative Ancef and confirmed that his only reported allergy is Chantix which he associates with bad dreams. Josie arrived in the operating room just prior to 8 AM and is currently being prepared for his procedure. Examination indicates no changes. The following problems are present on admission at this time: Obesity Continue current outpatient treatment plan and current medications for these conditions, except where otherwise noted. History of cardiac ischemia This HANDP can be found in the Electronic Medical Record from my last clinic appointment with him. SIGNATURE: Aditya Lama MD, PhD PATIENT NAME: Josie [place] DATE: June 30, 2025 TIME: 7:56 AM Aditya Lama MD, PhD [facility] OPERATIVE NOon 06-30-2025 OPERATIVE NO HNO ID: [id number] Author: ADITYA LAMA MD, PhD Service: Neurosurgery Author Type: Physician Type: Operative Report Filed: 06/30/2025 10:31 Note Text: Neurosurgical Operative Note Surgeon: Aditya Lama MD, PhD Kiln Transfer Operator: Adriel Scott PA-C Anaesthesia: General Date of Surgery: June 30, 2025 Start Time: 0837h End Time: 1013h Pre-Operative Diagnosis: Left L5/S1 Disc Herniation With S1 Radiculopathy Refractory To Conservative Management Post-Operative Diagnosis: Left S1 Radiculopathy Status Post L5/S1 Microdiscectomy Procedures Performed: Intraoperative Fluoroscopy to Identify Local Osteology for Incision Optimization, To Confirmk Bony Spinal Level and to Confirm Removal of Correct Intervertebral Disc Intraoperative Microscopy to Facilitate Microsurgical Dissection Left L5/S1 Microdiscectomy Left L5/S1 Foraminotomy Preamble: Josie Cannon is a 50-year-old male patient who has been troubled by a left-sided S1 radiculopathy secondary to an L5-S1 intervertebral disc herniation. His radiculopathy was confirmed by electrophysiology and worsened over time. Moreover his MRI showed progression of his disc herniation over time. Josie was quite functionally debilitated having difficulty standing in the weeks prior to surgery and he failed a host of conservative management strategies. After completing an informed consent process previously documented that discussed risks of surgery as well as potential benefits and alternatives to surgery he requested I move forward with operative management. He was brought to the operating room on June 30, 2025 for his elective surgical procedures the first case of the day. As previously documented I met with Josie and his family in the preoperative area prior to his surgery and no concerns were identified. Procedure Report: In the operating room Josie was sedated by anesthesia and general anesthesia was induced. The place an endotracheal tube. They placed lines. We did not place a Delcid catheter. When ready Josie was flipped into a prone position the OR table which had the Jeb frame. Care was taken to pad pertinent pressure points. We shaved his lumbar region and prepped it with ethanol. We then obtain lateral fluoroscopic images with 2 spinal needles in situ which I identified that our planned incision was in the right region. This allowed us to optimize location of incision somewhat. At this point we prepped and draped in the standard sterile fashion. After the baby was allowed to dry for period of over 5 minutes we draped. We performed a preoperative timeout which did not identify any concerns. We used the universal protocol. All parties were in agreement that we could proceed with the surgery. When anesthesia provided permission to initiate the surgery I infiltrated 1% lidocaine beneath the incision and then I used a #10 scalpel blade to incise the skin. Monopolar cautery was used to dissect down through the subcutaneous tissues. We identified the spinous processes and dissected on the left side of them. I carefully dissected with monopolar cautery being careful to stand bone to help avoid a durotomy. We placed self-retaining retractors. I obtained a lateral fluoroscopic image with formal radiology read to verify that a sharp towel clip was clamped to the L5 spinous process. This was confirmed we continued the surgery. I continued dissection of soft tissue off of the lamina of L5 and S1. I cleared soft tissue in the interspace and used a curette to dissect soft tissue off the undersurface of the L5 lamina. I then used a 2 mm punch to fashion a laminotomy of the L5 and S1 laminas. A 2 mm punch was used to remove ligament in this region. The underlying dura was identified with the nerve root just lateral. As we dissected this region the disc herniation injected itself indicating that it was under high-pressure. We retracted the dura and nerve root medially using a Love nerve root retractor. Soft tissue in the region was cauterized with bipolar cautery. We need to use longus cautery for this. I should note that the surgery was made a bit more challenging given the fact that Josie had generous connective tissue requiring us to operate with long thin instruments. At this point I grabbed the extruding disc with a micropituitary and a large fragment was delivered. I then used a #15 scalpel blade to further incise the disc and micropituitary's and series of straight and forward angled curettes to remove additional disc fragment. We obtained a lateral fluoroscopic image with the micropituitary and the disc base to confirm that we had resected the correct disc although the extrusion of the disc served to leave a little doubt as to the fact that we are at the correct level. We thoroughly irrigated the wound. We used bipolar cautery to address a few areas of venous ooze. We judged hemostasis to be e (more content not included)... Normal [facility] XR LUMBAR SPECIFY 1Von 06-30 XR LUMBAR SPECIFY 1V * * *Final Report* * * DATE OF EXAM: Jun 30 2025 10:03AM [facility] 5234 - XR LUMBAR SPECIFY 1V / PROCEDURE REASON: L5-S1 MICRODISCECTOMY * * * * Physician Interpretation * * * * EXAM TITLE: SINGLE INTRAOPERATIVE VIEW LUMBAR SPINE DATE: 06/30/2025 COMPARISON: Level verification images same date CLINICAL INDICATION/HISTORY: Lumbar spondylosis. Microdiscectomy. TECHNIQUE: Fluoroscopic guidance was provided for an intraoperative exam. RESULT: Images obtained: 1 Total fluoroscopy time: 1.8 seconds. Cumulative Air Kerma: 1.2255 mGy The single submitted image demonstrates a surgical device with tip in profile with the L5-S1 intervertebral disc space. Dorsal retraction device noted. L4-L5 is considered the level of the iliac crests. IMPRESSION: Documentation of fluoroscopy for intraoperative procedure. Please see the clinician's notes for further details of the procedure. Tower Excavator Operator: JOEL Transcribe Date/Time: Jul 02 2025 8:23A Dictated by : MANUEL VARNER MD This examination was interpreted and the report reviewed and electronically signed by: MANUEL VARNER MD on Jul 02 2025 8:25AM EST [id number] Normal [facility] XR VERIFY LEVEL [id number] 06-30-2025 XR VERIFY LEVEL L-SPINE-NB * * *Final Report* * * DATE OF EXAM: Jun 30 2025 8:53AM [facility] [id number] - XR VERIFY LEVEL L-SPINE-NB / PROCEDURE REASON: LEVEL VERIFICATION * * * * Physician Interpretation * * * * EXAM TITLE: LUMBAR SPINE LEVEL VERIFICATION X-RAY DATE: 06/30/2025 COMPARISON: Lumbar spine 4 views 05/02/2025. CLINICAL INDICATION/HISTORY: Lumbar radiculopathy. Lumbar surgery. TECHNIQUE: Single lateral intraoperative fluoroscopic spot views obtained of the lower lumbar spine. Radiologist is not present for the examination. Fluoroscopic Radiation Summary: Total number of acquisitions and radiographs: 1 Plane A, Air Kerma: 3.1 mGy Fluoro time: 0:03 min:sec FINDINGS: The lateral image demonstrates a surgical clamp with tip on the L5 spinous process. IMPRESSION: 1. Surgical clamp on the L5 spinous process. Findings were relayed to the OR via telephone with lumbar level agreement by Dr. Lama on 06/30/2025 at 8:55 AM. Tower Excavator Operator: [employer] [facility] Transcribe Date/Time: Jun 30 2025 8:54A Dictated by : PAULA BIRD MD This examination was interpreted and the report reviewed and electronically signed by: PAULA BIRD MD on Jun 30 2025 8:57AM EST [id number] N [facility] C[facility] JOSIE CORRE[facility] ([id number]) 1975 M Date Time Provider Department 06/29/25 ADITYA LAMA During your visit today, we recorded the following information about you: Dacia Valero 06/29/2025 9:13 AM Signed Contacted patient to remind them of their arrival time for surgery with Dr. Aditya Lama on 06/30/25. Patient is to arrive at [facility] at 6:00am for surgery at 8:00am. Spoke with patient and they are aware of all arrival information. Allergies As of Date: 06/29/2025 Noted Allergy Reaction CHANTIX (VARENICLINE) 06/11/2018 5 - Intolerance Comments: bad dreams Date Reviewed: 06/09/2025 Reviewed by: Lora Sen APRN.[facility] - Fully Assessed Reason for Visit: Preparations For Surgery [898] Prescriptions as of 06/29/2025 - mupirocin (BACTROBAN) 2 % ointment Apply a small amount in each nostril using a cotton swab twice a day for 7 days and the day of surgery. - gabapentin (NEURONTIN) 300 mg capsule TAKE 1 CAPSULE BY MOUTH TWICE DAILY FOR 28 DAYS - labetalol (TRANDATE) 100 mg tablet Take 1 tablet by mouth every 12 hours. - LORazepam (ATIVAN) 2 mg tab 2 mg. - meclizine (ANTIVERT) 25 mg tab 4 TIMES DAILY NEEDED PRN For Dizziness - meloxicam (MOBIC) 7.5 mg tablet Take 1 tablet by mouth once daily. - lisinopril (ZESTRIL, PRINIVIL) 40 mg tablet Take 1 tablet by mouth once daily. - atorvastatin (LIPITOR) 80 mg tablet Take 1 tablet by mouth once daily. - metoprolol succinate ER (TOPROL XL) 25 mg 24 hr tablet Take 1 tablet by mouth once daily. - aspirin, enteric coated (ASPIRIN, ENTERIC COATED) 81 mg EC tablet Take 81 mg by mouth once daily. - buPROPion SR (WELLBUTRIN SR) 150 mg 12 hr tablet Take 1 tablet by mouth twice daily. - propranolol (INDERAL) 20 mg tablet Take 1 tablet by mouth as needed (30-60 minutes prior to stressful events). Problem List As Of Date 06/29/2025 Noted Resolved Unstable angina (HCC) [I20.0] 09/15/2019 Hyperlipidemia [E78.5] Former smoker [Z87.891] Preop examination [Z01.818] 05/31/2025 TEODORA (obstructive sleep apnea) [G47.33] 06/09/2025 Obesity (BMI 30-39.9) [E66.9] 06/09/2025 Encounter Status:Closed by DACIA VALERO on 06/29/25 Normal [facility] Stress Reporton 06-21-2025 Stress Report [facility] [address] [place] [address] MR#: [id number] Acct: [id number] Name: JOSIE CORREA II Rep #: [id number] : 1975 50 From: Magno Griggs MD Primary Care: Dr. Marianela Tam MD Status: REG CLI Referring Dr: Marianela Tam MD Sex: M C Stress Test Report Date: 06/21/2025 Procedure: Pharmacologic stress nuclear imaging study Indications: Abnormal ECG Consent: Per the patient Procedure: The patient underwent pharmacologic (Regadenoson 0.4mg ) evaluation with a peak heart rate of 112 beats per minute (65%predicted maximal heart rate) and a peak blood pressure of 172/104 mmHg. The baseline ECG demonstrated sinus rhythm with nonspecific ST changes. The peak pharmacologic ECG was nondiagnostic. There were no cardiac dysrhythmias pretest, during pharmacologic infusion, or recovery. There was no complaint of chest discomfort during pharmacologic infusion or recovery. The patient was injected with 13.9 millicuries of technetium 99m Cardiolite and subsequently rest SPECT Cardiolite nuclear imaging was obtained in the horizontal long, vertical long, and short axis views. The patient underwent pharmacologic (Regadenoson) evaluation. The patient was injected with 44.6 millicuries of technetium 99m Cardiolite and subsequently stress SPECT Cardiolite nuclear imaging was obtained in the horizontal long, vertical long, and short axis views. A gated Cardiolite study at peak stress was obtained. The examination was stopped secondary to completion of protocol. Rest and stress SPECT Cardiolite nuclear imaging status post realignment, normalization, and attenuation correction demonstrate no fixed or reversible perfusion defects. There is end systolic thickening and brightening. The gated Cardiolite study demonstrates myocardial thickening and inward wall motion. The reported LVEF is 59%. Impression: 1. Pharmacologic (Regadenoson) evaluation 2. Peak pharmacologic ECG with no diagnostic changes. 3. There were no cardiac dysrhythmias pretest, during pharmacologic infusion, or recovery. 5. Rest and stress SPECT Cardiolite nuclear imaging demonstrate relative uniform tracer uptake and myocardial perfusion appearing within normal limits. 6. The gated Cardiolite study reports an LVEF of 59%. This note was generated with [employer] software. It may contain incorrect words, spelling, and punctuation that were not noted in checking the note before signing. 06/21/251128 Date Magno Griggs MD CC: Dr. Marianela Tam MD Date Dictated: 06/21/251127 Date Transcribed: 06/21/251127 Tower Excavator Operator: NIXON Signed [facility] Breana 06-20-2025 [facility] Telephone (NEAGCLM) JOSIE CORREA ([id number]) 1975 M Date Time Provider Department 06/20/25 ADITYA LAMA NEAGCLM During your visit today, we recorded the following information about you: Saurabh Verain 06/20/2025 2:20 PM Signed I spoke to PCP office who stated that at this time PCP is not requiring Cardio clearance just to review stress test that is scheduled at [place] on 06/21/25. I provided PCP office with my phone number and ext if they need to call with updates or changes. I spoke to spouse Elena and she is aware of all this as well. Allergies As of Date: 06/20/2025 Noted Allergy Reaction CHANTIX (VARENICLINE) 06/11/2018 5 - Intolerance Comments: bad dreams Date Reviewed: 06/09/2025 Reviewed by: Lora Sen APRN.[facility] - Fully Assessed Prescriptions as of 06/20/2025 - gabapentin (NEURONTIN) 300 mg capsule TAKE 1 CAPSULE BY MOUTH TWICE DAILY FOR 28 DAYS - labetalol (TRANDATE) 100 mg tablet Take 1 tablet by mouth every 12 hours. - LORazepam (ATIVAN) 2 mg tab 2 mg. - meclizine (ANTIVERT) 25 mg tab 4 TIMES DAILY NEEDED PRN For Dizziness - meloxicam (MOBIC) 7.5 mg tablet Take 1 tablet by mouth once daily. - lisinopril (ZESTRIL, PRINIVIL) 40 mg tablet Take 1 tablet by mouth once daily. - atorvastatin (LIPITOR) 80 mg tablet Take 1 tablet by mouth once daily. - metoprolol succinate ER (TOPROL XL) 25 mg 24 hr tablet Take 1 tablet by mouth once daily. - aspirin, enteric coated (ASPIRIN, ENTERIC COATED) 81 mg EC tablet Take 81 mg by mouth once daily. - buPROPion SR (WELLBUTRIN SR) 150 mg 12 hr tablet Take 1 tablet by mouth twice daily. - propranolol (INDERAL) 20 mg tablet Take 1 tablet by mouth as needed (30-60 minutes prior to stressful events). Problem List As Of Date 06/20/2025 Noted Resolved Unstable angina (HCC) [I20.0] 09/15/2019 Hyperlipidemia [E78.5] Former smoker [Z87.891] Preop examination [Z01.818] 05/31/2025 TEODORA (obstructive sleep apnea) [G47.33] 06/09/2025 Obesity (BMI 30-39.9) [E66.9] 06/09/2025 Encounter Status:Closed by GREGORY VERA on 06/20/25 Normal [facility] CBC panel Auto (Bld)on 06-09 Erythrocyte distribution width (RBC) [Ratio] 12.8 % Normal 11.5-15.0 [facility] Comment on above: Order Comment: Speci men Type: BLOOD SPECIMEN Ordering Facility: [facility] Address: [address] [place] [address] Performed By: #### 5 8410-2 #### [facility] CLIA [id number] [address] Hematocrit (Bld) [Volume fraction] 43.3 % Normal 39.0-51.0 [facility] Comment on above: Order Comment: Speci men Type: BLOOD SPECIMEN Ordering Facility: [facility] Address: [address] [place] [address] Performed By: #### 5 8410-2 #### [facility] CLIA [id number] [address] [place] Hemoglobin (Bld) [Mass/Vol] 15.0 g/dL Normal 13.0-17.0 [facility] Comment on above: Order Comment: Speci men Type: BLOOD SPECIMEN Ordering Facility: [facility] Address: [address] [place] [address] Performed By: #### 5 8410-2 #### [facility] CLIA [id number] [address] [place] MCH (RBC) [Entitic mass] 28.5 pg Normal 26.0-34.0 [facility] Comment on above: Order Comment: Speci men Type: BLOOD SPECIMEN Ordering Facility: [facility] Address: [address] [place] [address] Performed By: #### 5 8410-2 #### [facility] CLIA [id number] [address] MCHC (RBC) [Mass/Vol] 34.6 g/dL Normal 30.5-36.0 [facility] Comment on above: Order Comment: Speci men Type: BLOOD SPECIMEN Ordering Facility: [facility] Address: [address] [place] [address] Performed By: #### 5 8410-2 #### [facility] CLIA [id number] [address] MCV (RBC) [Entitic vol] 82.2 fL Normal 80.0-100.0 [facility] Comment on above: Order Comment: Speci men Type: BLOOD SPECIMEN Ordering Facility: [facility] Address: [address] [place] [address] Performed By: #### 5 8410-2 #### [facility] CLIA [id number] [address] Nucleated RBC (Bld) [#/Vol] 10*3/uL Normal <0.01 [facility] Comment on above: Order Comment: Speci men Type: BLOOD SPECIMEN Ordering Facility: [facility] Address: [address] [place] [address] Performed By: #### 5 8410-2 #### [facility] CLIA [id number] [address] Platelet mean volume (Bld) [Entitic vol] 9.9 fL Normal 9.0-12.7 [facility] Comment on above: Order Comment: Speci men Type: BLOOD SPECIMEN Ordering Facility: [facility] Address: [address] [place] [address] Performed By: #### 5 8410-2 #### [facility] CLIA [id number] [address] [place] Platelets (Bld) [#/Vol] 271 10*3/uL Normal 150-400 [facility] Comment on above: Order Comment: Speci men Type: BLOOD SPECIMEN Ordering Facility: [facility] Address: [address] [place] [address] Performed By: #### 5 8410-2 #### [facility] CLIA [id number] [address] OF [facility] RBC (Bld) [#/Vol] 5.27 10*6/uL Normal 4.20-6.00 [facility] Comment on above: Order Comment: Speci men Type: BLOOD SPECIMEN Ordering Facility: [facility] Address: [address] [place] [address] Performed By: #### 5 8410-2 #### [facility] CLIA [id number] [address] OF [facility] WBC (Bld) [#/Vol] 6.83 10*3/uL Normal 3.70-11.00 [facility] Comment on above: Order Comment: Speci men Type: BLOOD SPECIMEN Ordering Facility: [facility] Address: [address] [place] [address] Performed By: #### 5 8410-2 #### [facility] CLIA [id number] [address] CNPJenny 06-09-2025 CNPN Telephone (NEAGCLM) JOSIE CORREA ([id number]) 1975 M Date Time Provider Department 06/09/25 ADITYA LAMA NEAGC During your visit today, we recorded the following information about you: Gabi Jennings RN 06/09/2025 12:01 PM Signed Erik from [facility], Internal Medicine [phone], called into the office and left a voice mail stating the patient is coming into the office today for pre-surgical clearance for a surgery on 06/23/2025 and they are requesting a pre-surgical clearance form for them to fill out. She left a fax number of [phone]. The voice mail was forwarded to Kiera to fax the pre-surgical form. Gabi Jennings RN Allergies As of Date: 06/09/2025 Noted Allergy Reaction CHANTIX (VARENICLINE) 06/11/2018 5 - Intolerance Comments: bad dreams Date Reviewed: 06/09/2025 Reviewed by: Lora Sen APRN.[facility] - Fully Assessed Reason for Visit: Vp Strategy - Other [3602] Prescriptions as of 06/09/2025 - diazePAM (VALIUM) 5 mg tablet Take 1 tablet 60 minutes prior to MRI, may repeat 1 tablet right before MRI/during if needed. Patient should start on June 06, 2025. - gabapentin (NEURONTIN) 300 mg capsule TAKE 1 CAPSULE BY MOUTH TWICE DAILY FOR 28 DAYS - labetalol (TRANDATE) 100 mg tablet Take 1 tablet by mouth every 12 hours. - LORazepam (ATIVAN) 2 mg tab 2 mg. - meclizine (ANTIVERT) 25 mg tab 4 TIMES DAILY NEEDED PRN For Dizziness - meloxicam (MOBIC) 7.5 mg tablet Take 1 tablet by mouth once daily. - lisinopril (ZESTRIL, PRINIVIL) 40 mg tablet Take 1 tablet by mouth once daily. - atorvastatin (LIPITOR) 80 mg tablet Take 1 tablet by mouth once daily. - metoprolol succinate ER (TOPROL XL) 25 mg 24 hr tablet Take 1 tablet by mouth once daily. - aspirin, enteric coated (ASPIRIN, ENTERIC COATED) 81 mg EC tablet Take 81 mg by mouth once daily. - buPROPion SR (WELLBUTRIN SR) 150 mg 12 hr tablet Take 1 tablet by mouth twice daily. - propranolol (INDERAL) 20 mg tablet Take 1 tablet by mouth as needed (30-60 minutes prior to stressful events). Problem List As Of Date 06/09/2025 Noted Resolved Unstable angina (HCC) [I20.0] 09/15/2019 Hyperlipidemia [E78.5] Former smoker [Z87.891] Preop examination [Z01.818] 05/31/2025 TEODORA (obstructive sleep apnea) [G47.33] 06/09/2025 Obesity (BMI 30-39.9) [E66.9] 06/09/2025 Encounter Status:Closed by GABI JENNINGS on 06/09/25 Normal [facility] CONFIRM BLOOD TYPEon 025 ABO A Normal [facility] Comment on above: Order Comment: Speci men Type: BLOOD SPECIMEN Ordering Facility: [facility] Address: [facility] [place] [address] Performed By: #### C ONABO #### [facility] CLIA [id number] [address] [place] Rh Nom (Bld) Positive Normal [facility] Comment on above: Order Comment: Speci men Type: BLOOD SPECIMEN Ordering Facility: [facility] Address: [address] [place] [address] Performed By: #### C ONABO #### [facility] CLIA [id number] [address] OF [facility] Comprehensive metabolic 2000 panelon 06-09-2025 Albumin [Mass/Vol] 4.3 g/dL Normal 3.9-4.9 [facility] Comment on above: Order Comment: Speci men Type: BLOOD SPECIMEN Ordering Facility: [facility] Address: [address] [place] [address] Performed By: #### 2 4323-8 #### [facility] CLIA [id number] [address] [place] ALP [Catalytic activity/Vol] 84 U/L Normal 38-113 [facility] Comment on above: Order Comment: Speci men Type: BLOOD SPECIMEN Ordering Facility: [facility] Address: [address] [place] [address] Performed By: #### 2 4323-8 #### [facility] CLIA [id number] [address] [place] ALT With P-5'-P [Catalytic activity/Vol] 61 U/L High 10-54 [facility] Comment on above: Order Comment: Speci men Type: BLOOD SPECIMEN Ordering Facility: [facility] Address: [address] [place] [address] Performed By: #### 2 4323-8 #### [facility] CLIA [id number] [address] [place] Anion gap [Moles/Vol] 9 mmol/L Normal 8-15 [facility] Comment on above: Order Comment: Speci men Type: BLOOD SPECIMEN Ordering Facility: [facility] Address: [address] [place] [address] Performed By: #### 2 4323-8 #### [facility] CLIA [id number] [address] [place] AST With P-5'-P [Catalytic activity/Vol] 30 U/L Normal 14-40 [facility] Comment on above: Order Comment: Speci men Type: BLOOD SPECIMEN Ordering Facility: [facility] Address: [address] [place] [address] Performed By: #### 2 4323-8 #### [facility] CLIA [id number] [address] [place] Bilirubin [Mass/Vol] 0.9 mg/dL Normal 0.2-1.3 [facility] Comment on above: Order Comment: Speci men Type: BLOOD SPECIMEN Ordering Facility: [facility] Address: [address] [place] [address] Performed By: #### 2 4323-8 #### [facility] CLIA [id number] [address] Calcium [Mass/Vol] 9.3 mg/dL Normal 8.5-10.2 [facility] Comment on above: Order Comment: Speci men Type: BLOOD SPECIMEN Ordering Facility: [facility] Address: [address] [place] [address] Performed By: #### 2 4323-8 #### [facility] LABORATORY CLIA [id number] [address] [place] Chloride [Moles/Vol] 103 mmol/L Normal 98-107 [facility] Comment on above: Order Comment: Speci men Type: BLOOD SPECIMEN Ordering Facility: [facility] Address: [address] [place] [address] Performed By: #### 2 4323-8 #### [facility] CLIA [id number] [address] STATES [facility] CO2 [Moles/Vol] 28 mmol/L Normal 22-30 [facility] Comment on above: Order Comment: Speci men Type: BLOOD SPECIMEN Ordering Facility: [facility] Address: [address] [place] [address] Performed By: #### 2 4323-8 #### [facility] CLIA [id number] [address] Creatinine [Mass/Vol] 1.09 mg/dL Normal 0.73-1.22 [facility] Comment on above: Order Comment: Speci men Type: BLOOD SPECIMEN Ordering Facility: [facility] Address: [address] [place] [address] Performed By: #### 2 4323-8 #### [facility] CLIA [id number] [address] eGFRcr SerPlBld CKD-EPI 2020 83 mL/min/1.73m??? Normal >=60 [facility] Comment on above: Order Comment: Speci men Type: BLOOD SPECIMEN Ordering Facility: [facility] Address: [address] [place] [address] Result Comment: Sudha mated Glomerular Filtration Rate (eGFR) is calculated using the 2020 CKD-EPI creatinine equation. This equation utilizes serum creatinine, sex, and age as parameters. The creatinine assay has traceable calibration to isotope dilution-mass spectrometry. Refer to KDIGO guidelines for clinical interpretation. In patients with unstable renal function, e.g. those with acute kidney injury, the eGFR may not accurately reflect actual GFR. Performed By: #### 2 4323-8 #### [facility] CLIA [id number] [address] STATES [facility] Glucose [Mass/Vol] 153 mg/dL High 74-99 [facility] Comment on above: Order Comment: Speci men Type: BLOOD SPECIMEN Ordering Facility: [facility] Address: [address] [place] [address] Result Comment: The [place] Diabetes Association (ADA) provides guidance for cutoff values for fasting glucose and random glucose. The ADA defines fasting as no caloric intake for at least 8 hours. Fasting plasma glucose results between 100 to 125 mg/dL indicate increased risk for diabetes (prediabetes). Fasting plasma glucose results greater than or equal to 126 mg/dL meet the criteria for diagnosis of diabetes. In the absence of unequivocal hyperglycemia, results should be confirmed by repeat testing. In a patient with classic symptoms of hyperglycemia or hyperglycemic crisis, random plasma glucose results greater than or equal to 200 mg/dL meet the criteria for diagnosis of diabetes. Reference: Standards of Medical Care in Diabetes 2016, [place] Diabetes Association. Diabetes Care. 2016.39(Suppl 1). Performed By: #### 2 4323-8 #### [facility] CLIA [id number] [address] [place] Potassium [Moles/Vol] 3.8 mmol/L Normal 3.7-5.1 [facility] Comment on above: Order Comment: Speci men Type: BLOOD SPECIMEN Ordering Facility: [facility] Address: [address] [place] [address] Performed By: #### 2 4323-8 #### [facility] CLIA [id number] [address] [place] [address] STATES OF [facility] Protein [Mass/Vol] 7.2 g/dL Normal 6.3-8.0 [facility] Comment on above: Order Comment: Speci men Type: BLOOD SPECIMEN Ordering Facility: [facility] Address: [address] [place] [address] Performed By: #### 2 4323-8 #### [facility] CLIA [id number] 1 [place] [address] [place] Sodium [Moles/Vol] 140 mmol/L Normal 136-144 [facility] Comment on above: Order Comment: Speci men Type: BLOOD SPECIMEN Ordering Facility: [facility] Address: [address] [place] [address] Performed By: #### 2 4323-8 #### [facility] CLIA [id number] 1 [place] [address] [place] Urea nitrogen [Mass/Vol] 6 mg/dL Low 9-24 [facility] Comment on above: Order Comment: Speci men Type: BLOOD SPECIMEN Ordering Facility: [facility] Address: [place] [address] Performed By: #### 2 4323-8 #### [facility] CLIA [id number] [address] EKGon 06-09-2025 Electrocardiogram Ventricular Rate : 9 9 BPM Atrial Rate : 99 BPM P-R Interval : 148 ms QRS Duration : 94 ms Q-T Interval : 350 ms QTC Calculation(Bazett) : 449 ms Calculated P [place] : 34 degrees Calculated R [place] : 38 degrees Calculated T [place] : -33 degrees NORMAL SINUS RHYTHM T WAVE ABNORMALITY, CONSIDER INFERIOR ISCHEMIA ABNORMAL ECG NO PREVIOUS ECGS AVAILABLE Confirmed by MD RAMOS YASSAR ([id number]) on 06/12/2025 9:12:57 AM NAME : JOSIE CORREA PID : [id number] : 1975 Gender : Male Race : ORD : Procedure Date : Jun 09 2025 09:28:59 Edit Date : Jun 12 2025 09:13:02 Diagnosis: NORMAL SINUS RHYTHM T WAVE ABNORMALITY, CONSIDER INFERIOR ISCHEMIA ABNORMAL ECG NO PREVIOUS ECGS AVAILABLE Confirmed by MD RAMOS YASSAR ([id number]) on 06/12/2025 9:12:57 AM Test Reason : Location : [address] [place] [address] Overread By : MD RAMOS YASSAR Edited By : MD RAMOS YASSAR Referred By : ADITYA LAMA Acquired by : LORA SEN [facility] HISTORY PHYSICALon HISTORY PHYSICAL HNO ID: [id number] Author: LORA SEN APRN.[facility] OCCUPATIONAL THERAPY ASST Service: ? Author Type: Nurse Practitioner Type: H&P Filed: 06/09/2025 10:00 Note Text: [facility] HISTORY AND PHYSICAL EXAMINATION SERVICE DATE: 06/09/2025 SERVICE TIME: 07:45 AM PRIMARY CARE PHYSICIAN: Marianela Tam MD Assessment Patient has the following medical conditions which may affect denise-operative course: Problem List Items Addressed This Visit Cardiovascular Unstable angina (HCC) Current Assessment AND Plan Hx Heart Cath 2018 No stents Hyperlipidemia - Primary Current Assessment AND Plan Managed by PCP and Controlled with meds. Pulmonary Former smoker Current Assessment AND Plan 1PPD X 30 years Quit 3 years TEODORA (obstructive sleep apnea) Current Assessment AND Plan CPAP Other Preop examination Current Assessment AND Plan Managed by PCP and Controlled with meds. Last 14 BP Last 14 Encounter BP Readings: Date: BP: 05/30/2025 143/83 05/02/2025 161/98 09/15/2019 138/84 04/28/2019 120/80[BP Loi average[ 04/14/2019 164/98 06/11/2018 122/74 04/17/2017 148/85[BP Loi Average (from Extended Vitals)[ Relevant Orders CONFIRM BLOOD TYPE Obesity (BMI 30-39.9) Current Assessment AND Plan BMI 33 Pending Medical Optimization - Scheduled 11:30 06/09/25 Copy of ECG in PAT provided to patient to give to PCP for Appointment ANESTHESIA FINDINGS: Intubation History: No history of difficult intubation. No abnormal airway history Significant Anesthesia Considerations: none Airway History: No history of difficult airway No abnormal airway history Dash Activity Status Index: METS: Climb a flight of stairs or walk up a hill (5.50 METs) DASI Score: 5.5 (Limited due to left leg Presented to PAT via wheelchair Was more active prior ) Patient denies any chest pain or undue shortness of breath with the above physical activity. ARISCAT Score: Age: <=50 Preoperative SpO2: >=96% Respiratory infection in the last month: No Preoperative anemia: No Surgical incision: peripheral Duration of surgery: <2 hrs Emergency procedure: No ARISCAT Score: 0 I - PHYSICAL EVALUATION AIRWAY Patient intubated: No. DENTAL Dentures, upper: complete. Dentures, lower: complete. II - ANESTHESIA PLAN Anesthetic Plan: general Informed Consent Prepared for Surgery: CONSULTS: Planned Anesthetic: general The Following Tests/Procedures Have Been Initiated: Orders Placed This Encounter Confirm Blood Type Order Comments: Draw separate from TSCR Standing Status: Future Expected Date: 06/09/2025 Expiration Date: 09/08/2025 Did Blood Bank direct you to place this order:: No - Presurgical Workflow REASON FOR VISIT: Josie Correa is a 50 year old male who is scheduled for Procedure(s): MICROSURGICAL TECHNIQUE FOR SPINAL PROCEDURES - Open left L5/S1 microdiscectomy (Left) DISCOTOMY LUMBAR LEVEL 1 (N/A) at the request of Aditya Barron MD, PhD for routine HANDP. My final recommendation will be communicated back to the requesting physician by way of shared medical record or letter. Subjective The patient has the following: COVID-19 Immunization Status Current Care Gaps Covid-19 Vaccine ( season) Never done No completion, postpone, frequency change, or communication history exists for this topic. CHIEF COMPLAINT: The reason for this visit is to perform a comprehensive review of the patient's past medical history, assess their current health status and obtain any additional testing required based on anesthesia guidelines. We will also identify any potential anesthesia problems or contraindications to the planned procedure. HPI: Patient presents to [facility] for the preoperative exam for the above procedure. Patient with low back pain that started 1 year ago. Pain progressively gotten worse shooting down left leg. Pain causing numbness and weakness to his left leg. Was being managed for pain with pain management and then he was referred to Surgeon for surgical intervention. MRI done Lumbar radiculopathy. Denies any urinary or bowel incontinence with this. Patient denies any other problems or concerns at this time. Risks and benefits of the procedure discussed by Surgeon and patient agreed to proceed with planned procedure. REVIEW OF SYSTEMS: General: No weight loss, malaise or fevers. Neurological: See HPI. Respiratory: Positive for: obstructive sleep apnea and CPAP/BiPAP compliant. Negative for: COPD, pneumonia within 6 weeks and tobacco use. Cardiovascular: Heart Cath 2019 Positive for: hyperlipidemia and hypertension GI: No history of GI symptoms or problems. No history of esophageal varices, recent ascites, or ETOH greater than 2 drinks per day. : No history of dysuria, frequency or incontinence, stones or chronic kidney disease. No difficulty urinating, nocturia > 1 ramona (more content not included)... Normal [facility] MR/BMS.Enrique 06-09-2025 MR/BMS.IMB [facility] [address] [place] [address] OFFICE VISIT Date of Service: 06/09/25 MR#: [id number] Acct: [id number] Name: JOSIE CORREA II Rep #: [id number] : 1975 Provider: Dr. Marianela villagran MD Age/Sex: 50/M Location: [facility].IM[facility] Status: Signed Intake Vital Signs 11/25/24 10:01 06/09/25 11:47 Height 5 ft 7 in 5 ft 7 in Weight: 210 lb 210 lb BMI 32.8 32.8 BP 176/114 H Blood Pressure Location Rt brachial Position Sitting Respiration 16 Pulse 94 Pulse Source Monitor Temp 98.6 F Temp Source Temporal Pulse Oximetry (%) 97 Oxygen Delivery Method room air Intake Visit Reasons: Surgery Clearance Chief Complaint: Lower back pain Organizational Consultant Required: No Accompanied by: Self Is patient in pain?: Yes (Lower back pain) Pain scale (1-10): 10 Allergies No Known Allergies Allergy (Verified 06/09/25 11:39) Medications ???Medication ???Instructions ???Recorded ???Confirmed ???Type labetalol 100 mg tablet 100 mg PO BID #180 tabs 05/03/24 1 Rx diazepam 5 mg tablet (Valium) 5 mg PO ONCE PRN anxiety #1 TAB 06/09/25 Rx gabapentin 300 mg capsule 300 mg PO BID #60 caps 06/09/25 Rx hydrocodone-acetamino phen 5-325mg 1 tab PO BID PRN pain 7 days #14 06/09/25 06/09/25 Rx 5mg-325mg tabs PFSH Medical History (Updated 06/09/25 @ 12:[address] Marianela Tam MD) Abnormal ECG Preop exam for internal medicine Sciatica Annual wellness visit Chronic neck and back pain Shoulder pain Rectal bleeding Sleep apnea History of back problems Rectal bleeding Hyperlipidemia Unstable angina Anxiety Tobacco abuse Hypertension Chest pain Surgical History History of placement of ear tubes History of left heart catheterization (08/23/19) Family History Father Born with 3 heart valves instead of 4 Hypertension High cholesterol Uncle Hypertension Social History Smoking Status: Former smoker alcohol intake: current alcohol intake frequency: holidays/special occasions only substance use type: does not use HPI HPI Chief Complaint: Lower back pain Details: JOSIE CORREA, is a 50 M who presents to the office today for preop evaluation. Dale set to undergo discectomy [facility] on June 23, 2025. Had preop evaluation there this AM. Had ECG, suggestive possible inferior ischemia. He had a heart cath in 2019, and at that time had no significant blockages, but 30% RCA disease. He had continued to smoke until about 2 years ago. 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 He has a history of low HDL, elevated total cholesterol (230s), elevated LDL (130s) but a low HDL in the mid 20s to most recently mid 30s. Has been encouraged in past to change diet pattern, get rid of foods high in the heat unstable vegetable oils such as chips, fries, snacks, etc. He is not having episodes of chest pain, chest tightness, dyspnea on exertion. No prior MO, stents, cardiac interventions, palpitations, fluttering, skipped heart beats. He has been prescribed gabapentin by pain management for back pain. Saw PA here at [facility], and was referred to pain mgt (Dr. Wang) and had injections (multiple). I was not aw are of his ongoing issues with back pain, injections, consults, nor [facility] involvement where he self referred apparently after discussing with his insurance company. I was aware of initial visit with PA. He has been on labetalol 100 mg PO BID for blood pressure control, and was started on this due to BP in setting of anxiety/stress related. He states some days only takes once daily. Reminded to take BID and why. ROS per above. Vitals on chart. EOMI. PERRL. Neck supple, thyroid not enlarged. Pharynx clear, no obvious oral mucosal lesions. Lung are without wheezes, ronchi, or rales. Normal air movement. Heart is regular and without obvious murmurs, rubs, or gallops. Abdomen is soft throughout. No clear masses in the abdomen. Non tender throughout the abdomen. No significant edema. ROS Const Constitutional: Positive for sleep problems; No body ache, chills, excessive sweating, fatigue, fever(s), frequent falls, headache(s), snoring, weakness or change in appetite Eyes Eyes: No blurry vision, change in vision, eye pain or Light sensitivity ENT ENT: No abnormal hearing, ear or mastoid pain, tinnitus, nasal congestion, headache(s), neck pain or sore throat Resp Respiratory: No cough, shortness of breath, snoring or wheezing Cardio Cardiology: No chest pain at rest, chest pa (more content not included)... Normal [facility] PT panel Coag (PPP)on 2024 INR Coag (PPP) [Relative time] 1.0 {INR} Normal 0.9-1.3 [facility] Comment on above: Order Comment: Xavier garrett Type: BLOOD SPECIMEN Ordering Facility: [facility] Address: [address] [place] [address] Result Comment: Marlena min K Antagonist (VKA) Therapeutic Range: INR 2 to 3 (Target INR of 2.5) Note: For patients treated with VKA drugs, such as warfarin, the [place] [employer] 2012 Guideline recommends a therapeutic INR range of 2 to 3 (target INR of 2.5). This recommendation includes high-risk patients with antiphospholipid syndrome with previous arterial or venous thromboembolism, current-generation mechanical or bioprosthetic aortic heart valve replacement. Note: Patients with mechanical aortic valve replacement and additional risk factors for thromboembolic events (atrial fibrillation, previous thromboembolism, LV dysfunction, hypercoagulable conditions) or an older generation mechanical AVR (i.e., ball in-Cage) or any mechanical MVR should have a INR therapeutic range of 2.5 to 3.5 (target INR of 3). Mahamed BEGUM, et al. Chest 2012, 141:7S-47S Elmo RA, et al. [employer] 2017, 70: 252-289 Performed By: #### 3 4528-0, 17601-2 #### [facility] CLIA [id number] 1 [place] [address] [place] PT Coag (PPP) [Time] 10.4 s Normal 9.7-13.0 [facility] Comment on above: Order Comment: Xavier garrett Type: BLOOD SPECIMEN Ordering Facility: [facility] Address: [address] [place] [address] Performed By: #### 3 4528-0, 04841-7 #### [facility] CLIA [id number] [address] [place] STAPHYLOCOCCUS AUREUS AND MR SA SCREEN, PCR, NASALon 06-09-2025 S. aureus and MRSA panel MAICO+probe (Nose) Methicillin-SUSCEPTIB LE Staphylococcus aureus Detected Abnormal Not Detected [facility] Comment on above: Order Comment: Speci men Type: BLOOD SPECIMEN Ordering Facility: [facility] Address: [address] [place] [address] Performed By: #### T SCR30 #### [facility] CLIA [id number] [address] OF [facility] TYPE AND SCREEN,30 DAYon ABO A Normal [facility] Comment on above: Order Comment: Speci men Type: BLOOD SPECIMEN Ordering Facility: [facility] Address: [address] [place] [address] Performed By: #### T SCR30 #### [facility] CLIA [id number] [address] [place] Rh Nom (Bld) Positive Normal [facility] Comment on above: Order Comment: Speci men Type: BLOOD SPECIMEN Ordering Facility: [facility] Address: [address] [place] [address] Performed By: #### T SCR30 #### [facility] CLIA [id number] [address] [place] XR CHEST 2V FRONTAL/LATon XR CHEST 2V FRONTAL/LAT * * *Final Repor t* * * DATE OF EXAM: Jun 09 2025 10:29AM [id number] - XR CHEST 2V FRONTAL/LAT / PROCEDURE REASON: multiple diagnoses * * * * Physician Interpretation * * * * EXAMINATION: CHEST RADIOGRAPH (2 VIEW FRONTAL and LATERAL) CLINICAL HISTORY: Radiculopathy, lumbosacral region Spinal stenosis of lumbar region, unspecified whether neurogenic claudication present MQ: [id number] EXAM DATE/TIME: 06/09/2025 10:29 AM COMPARISON: No relevant prior studies available. RESULT: Lines, tubes, and devices: None. Lungs and pleura: No consolidation. No lung mass. No pleural effusion. No pneumothorax. Cardiomediastinal silhouette: Normal cardiomediastinal silhouette. Bones and soft tissues: Degenerative changes are present within the thoracic spine. IMPRESSION: No acute radiographic abnormality. Tower Excavator Operator: PSCB Transcribe Date/Time: Jun 11 2025 2:28P Dictated by : LYLE BOSS MD This examination was interpreted and the report reviewed and electronically signed by: LYLE BOSS MD on Jun 11 2025 2:28PM EST [id number] Normal [facility] aPTT PPPon 06-09-2025 aPTT Coag (PPP) [Time] 26.2 s Normal 23.0-32.4 [facility] Comment on above: Order Comment: Speci men Type: BLOOD SPECIMEN Ordering Facility: [facility] Address: [address] [place] [address] Performed By: #### 3 4528-0, 62098-1 #### [facility] CLIA [id number] [address] STATES OF [facility] MRI LUMBAR SPINE WO IVCONon 06-08-2025 MRI LUMBAR SPINE WO IVCON * * *Final Report* * * DATE OF EXAM: Jun 08 2025 11:42AM [id number] - MRI LUMBAR SPINE WO IVCON / PROCEDURE REASON: Spinal stenosis of lumbar region, unspecified whether neurogenic claudication pr * * * * Physician Interpretation * * * * EXAMINATION: MRI LUMBAR SPINE WO IVCON CLINICAL HISTORY: Spinal stenosis of lumbar region, unspecified whether neurogenic claudication present TECHNIQUE: Routine lumbosacral spine MR protocol without gadolinium. MQ: [id number] COMPARISON: Lumbosacral spine radiographs 05/02/2025, lumbar spine MRI 11/22/2024 RESULT: Counting reference: Lumbosacral junction. For the purposes of this report, Localizer images: No significant findings. Alignment: Minimal retrolisthesis of L5 on S1. Bone marrow signal/fracture: No evidence of pathologic marrow infiltration. No evidence of prior fracture. There are overall mild multilevel disc degenerative changes with loss of normal intervertebral disc space height and normal T2 hyperintense disc signal. Conus: The conus is within normal limits of signal intensity and morphology, terminating at the approximate L1 level. Paraspinal soft tissues: Posteriorly directed 6 mm left L3-4 facet joint synovial cyst. Lower thoracic spine: Visualized lower thoracic canal and foramina are patent. L1-L2: Canal and foramina are patent. L2-L3: Canal and foramina are patent L3-L4: Mild bilateral facet arthropathy. Canal and foramina are patent. L4-L5: Mild disc bulge with right paracentral annular fissure/protrusion and mild facet arthropathy resulting in mild central spinal canal narrowing. Effacement of the right greater than left subarticular recesses and contact with the traversing L5 nerve roots. Mild right and no significant left neural foraminal narrowing. Similar to 11/22/2024. L5-S1: New left subarticular zone disc protrusion with left subarticular recess stenosis and likely impingement of the traversing left S1 nerve roots. Otherwise similar appearance of disc bulging and right subarticular disc protrusion/osteophyte s resulting in right subarticular recess stenosis with suspected impingement of the traversing right S1 nerve roots. Mild central spinal canal narrowing. Mild to moderate right and no significant left neural foraminal narrowing. Sacrum and iliac wings: The visualized sacrum and iliac wings are within normal limits. IMPRESSION: Compared to 11/22/2024, at L5-S1 there is a new left subarticular recess disc protrusion resulting in likely impingement of the left S1 nerve roots. Otherwise, similar appearance of additional degenerative findings at L4-5 and L5-S1 resulting in varying degrees of subarticular recess stenosis, as detailed. No high-grade central spinal canal or neural foraminal stenosis. Anatomic Lumbar Variant: None. L4-5 is considered the level of the iliac crest and assume there are 5 lumbar-type vertebrae. Tower Excavator Operator: PSCB Transcribe Date/Time: Jun 08 2025 1:14P Dictated by : TABITHA THOMAS MD This examination was interpreted and the report reviewed and electronically signed by: TABITHA THOMAS MD on Jun 08 2025 1:26PM EST [id number] N Normal [facility] CNOVon 05-30-2025 CNOV Office Visit (NEAGCLM) JOSIE CORREA ([id number]) 1975 M Date Time Provider Department 05/30/25 9:30 AM ADITYA LAMA NEAGCLM During your visit today, we recorded the following information about you: Pulse Blood pressure Weight Height 92/minute 143/83 95.3 kg 1.549 m Aditya Lama MD, PhD 05/30/2025 10:12 AM Signed NEUROSURGERY FOLLOW UP OFFICE NOTE Aditya Lama MD, PhD Date of visit: May 30, 2025 Patient Name: Mr.Raymond Rahel Correa Date of : 1975 Current Age: [age] year old Sex: male MRN/E# [id number] Last Office Visit: 05/02/2025 Chief Complaint: Patient presents with: Established Patient SUBJECTIVE: HPI The patient is a 50 year old, right handed male with a past medical history of anxiety, hyperlipidemia, unstable angina and tobacco use who is self referred for neurosurgical evaluation. Patient presented to the office on 05/02/2025 as a new patient with worsening low back pain and left leg radiculopathy. He was accompanied by his father, who provided additional history. Josie reported experiencing low back pain for over a year, which had progressively worsened. He described the pain as intermittent, with a baseline intensity of 8/10, escalating to 10/10 with movement. The pain was exacerbated by standing and walking and alleviated by lying on his right side. He also experienced pain when lying on his back. He does not endorse any falls, bowel, or bladder issues. He reported radicular symptoms in the left leg, including cramping, numbness, tingling, and burning, extending from the posterior thigh to the calf and foot. The entire left foot is described as tingly. These symptoms began approximately a year ago and had worsened over time. He noted bilateral leg weakness and reported that his whole leg goes numb when standing. He does not endorse any dexterity issues. Josie had undergone 6-8 injections in his low back at [facility] without relief. He had been taking gabapentin 600 mg daily and meloxicam 15 mg, which he found helpful. He had also been attending physical therapy twice a week, with his last session on May 07 or . 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 He reported significant impact on his daily activities, stating, I can't barely do anything, and I can't even go to the bathroom without it killing me. He also mentioned difficulty taking showers, often needing to lie down on the floor afterward. He quit smoking three years ago but continued to use nicotine pouches. He does not endorse any chest pain and reported being generally healthy otherwise. Past Diagnostic Results: - (10/2022) Lumbar Spine MRI: No significant findings of nerve impingement. MRI reviewed; no significant nerve impingement or central stenosis identified; minimal findings do not fully explain the extent of symptoms. EMG nerve conduction studies ordered to further evaluate nerve function and clarify diagnosis; requested expedited scheduling. It was recommended to follow-up in 4 weeks to review EMG results and reassess treatment options. Symptoms: Gait disturbance, low back pain radicular symptoms into the left leg with cramping, numbness, and tingling. Patient's blood pressure elevated at office visit today. Denies chest pain, shortness of breath, headache, blurred vision, dizziness, or lightheadedness. Recommended patient to follow-up with PCP or go to Emergency Department if experiences these symptoms. Patient currently has a known history of hypertension. 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 Mobic Immunosuppressive therapy. None Physical therapy: reports at [facility] Previous healthcare providers: none Pain Management: [facility] Injections: 6-8 low back injections. Reports no relief. PREVIOUS SURGERY: None PAIN EVALUATION 05/30/2025 0912 Pain Level: 10 Pain Location: Back-Lower Description: Aching;Shooting;Throb rehan Duration Units: Months Frequency: Intermittent Intervention/Comfort measure: Medication PAST MEDICAL HISTORY Diagnosis Date Anxiety Essential hypertension Hyperlipidemia Tobacco use Unstable angina (HCC) heart cath 07/2019 PAST SURGICAL HISTORY Procedure Laterality Date EAR SURGERY HX Bilateral 1985 FAMILY HISTORY Problem Relation Age of Onset Hypertension Mother Hypertension Father ALLERGIES Allergen Reactions Chantix [Vareniclin* Intolerance bad dreams Current Outpatient Medications Medication Sig Dispense Refill gabapentin (NEURONTIN) 300 mg capsule TAKE 1 CAPSULE BY MOUTH TWICE DAILY FOR 28 DAYS labetalol (TRANDATE) 100 mg tablet Take 1 tablet by mouth every 12 hours. (more content not included)... Normal [facility] CNOVon 05-02-2025 CNOV Office Visit (NEAGCLM) JOSIE CORREA ([id number]) 1975 M Date Time Provider Department 05/02/25 10:00 AM ADITYA LAMA NEAGCLM During your visit today, we recorded the following information about you: Pulse Respiration Blood pressure Weight 91/minute 16/minute 161/98 90.7 kg Height 1.702 m Aditya Lama MD, PhD 05/02/2025 10:31 AM Signed NEUROSURGERY CONSULT NOTE Aditya Lama MD, PhD Date of visit: May 02, 2025 Patient Name: Mr.Raymond Rahel Correa Date of : 1975 Current Age: [age] year old Sex: male MRN/E# [id number] Chief Complaint: Patient presents with: New Patient HISTORY OF PRESENT ILLNESS : The patient is a 50 year old, right handed male with a past medical history of anxiety, hyperlipidemia, unstable angina and tobacco use who is self referred for neurosurgical evaluation. Josie Correa is a 50-year-old male presenting with worsening low back pain and left leg radiculopathy. He is accompanied by his father, who provides additional history. Josie reports experiencing low back pain for over a year, which has progressively worsened. He describes the pain as intermittent, with a baseline intensity of 8/10, escalating to 10/10 with movement. The pain is exacerbated by standing and walking and alleviated by lying on his right side. He also experiences pain when lying on his back. He does not endorse any falls, bowel, or bladder issues. He reports radicular symptoms in the left leg, including cramping, numbness, tingling, and burning, extending from the posterior thigh to the calf and foot. The entire left foot is described as tingly. These symptoms began approximately a year ago and have worsened over time. He notes bilateral leg weakness and reports that his whole leg goes numb when standing. He does not endorse any dexterity issues. Josie has undergone 6-8 injections in his low back at [facility] without relief. He has been taking gabapentin 600 mg daily and meloxicam 15 mg, which he finds helpful. He has also been attending physical therapy twice a week, with his last session on May 07 or . 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 He reports significant impact on his daily activities, stating, I can't barely do anything, and I can't even go to the bathroom without it killing me. He also mentions difficulty taking showers, often needing to lie down on the floor afterward. He quit smoking three years ago but continues to use nicotine pouches. He does not endorse any chest pain and reports being generally healthy otherwise. Past Diagnostic Results: - (10/2022) Lumbar Spine MRI: No significant findings of nerve impingement. 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 Mobic Immunosuppressive therapy. None Physical therapy: reports at [facility] Previous healthcare providers: none Pain Management: [facility] Injections: 6-8 low back injections. Reports no relief. PREVIOUS SURGERY: None PAIN EVALUATION No data found in the last 1 encounters. PAST MEDICAL HISTORY Diagnosis Date Anxiety Essential hypertension Hyperlipidemia Tobacco use Unstable angina (HCC) heart cath 07/2019 PAST SURGICAL HISTORY Procedure Laterality Date EAR SURGERY HX Bilateral 1985 FAMILY HISTORY Problem Relation Age of Onset Hypertension Mother Hypertension Father ALLERGIES Allergen Reactions Chantix [Vareniclin* Intolerance bad dreams Current Outpatient Medications Medication Sig Dispense Refill gabapentin (NEURONTIN) 300 mg capsule TAKE 1 CAPSULE BY MOUTH TWICE DAILY FOR 28 DAYS labetalol (TRANDATE) 100 mg tablet Take 1 tablet by mouth every 12 hours. LORazepam (ATIVAN) 2 mg tab 2 mg. meclizine (ANTIVERT) 25 mg tab 4 TIMES DAILY NEEDED PRN For Dizziness meloxicam (MOBIC) 7.5 mg tablet Take 1 tablet by mouth once daily. atorvastatin (LIPITOR) 80 mg tablet Take 1 tablet by mouth once daily. 30 tablet 5 metoprolol succinate ER (TOPROL XL) 25 mg 24 hr tablet Take 1 tablet by mouth once daily. 30 tablet 5 buPROPion SR (WELLBUTRIN SR) 150 mg 12 hr tablet Take 1 tablet by mouth twice daily. 60 tablet 2 propranolol (INDERAL) 20 mg tablet Take 1 tablet by mouth as needed (30-60 minutes prior to stressful events). 30 tablet 1 lisinopril (ZESTRIL, PRINIVIL) 40 mg tablet Take 1 tablet by mouth once daily. (Patient not taking: Reported on 05/02/2025) 30 tablet 5 aspirin, enteric coated (ASPIRIN, ENTERIC COATED) 81 mg EC tablet Take 81 mg by mouth once daily. (Patient not taking: Reported on 05/02/2025) No current facility-administered medications for this visit. SOCIAL HISTORY: Currently unable to work due to pa (more content not included)... [facility]OS[facility] CORRE[facility] ([id number]) 1975 M Date Time Provider Department 05/02/25 ADITYA LAMA NEBETSYLM During your visit today, we recorded the following information about you: Gabi Jennings, MILLA 05/02/2025 4:29 PM Signed This patient the spouse called into the office and said Josie forgot to ask at his appointment today about something for pain and for Dr. Lama to fill out his short term disability paper work. Called patient and his back after speaking with Dr. Lama. Dr. Lama stated he does not have a diagnosis for Josie. We have put in for a stat EMG and for him to follow up. He would need to contact his PCP to fill out any short-term paper work, as far as pain medication, he is following up with pain management and to proceed with pain management. If he is considering surgery in the future he would need to be nicotine free for 30 days. Elena verbalized understanding and stated she would inform Josie of the above. Gabi Jennings RN Allergies As of Date: 05/02/2025 Noted Allergy Reaction CHANTIX (VARENICLINE) 06/11/2018 5 - Intolerance Comments: bad dreams Date Reviewed: 05/02/2025 Reviewed by: Ileana Paula MA - Fully Assessed Reason for Visit: Patient Question [0276] Prescriptions as of 05/02/2025 - gabapentin (NEURONTIN) 300 mg capsule TAKE 1 CAPSULE BY MOUTH TWICE DAILY FOR 28 DAYS - labetalol (TRANDATE) 100 mg tablet Take 1 tablet by mouth every 12 hours. - LORazepam (ATIVAN) 2 mg tab 2 mg. - meclizine (ANTIVERT) 25 mg tab 4 TIMES DAILY NEEDED PRN For Dizziness - meloxicam (MOBIC) 7.5 mg tablet Take 1 tablet by mouth once daily. - lisinopril (ZESTRIL, PRINIVIL) 40 mg tablet Take 1 tablet by mouth once daily. - atorvastatin (LIPITOR) 80 mg tablet Take 1 tablet by mouth once daily. - metoprolol succinate ER (TOPROL XL) 25 mg 24 hr tablet Take 1 tablet by mouth once daily. - aspirin, enteric coated (ASPIRIN, ENTERIC COATED) 81 mg EC tablet Take 81 mg by mouth once daily. - buPROPion SR (WELLBUTRIN SR) 150 mg 12 hr tablet Take 1 tablet by mouth twice daily. - propranolol (INDERAL) 20 mg tablet Take 1 tablet by mouth as needed (30-60 minutes prior to stressful events). Problem List As Of Date 05/02/2025 Noted Resolved Unstable angina (HCC) [I20.0] 09/15/2019 Hyperlipidemia [E78.5] Tobacco use [Z72.0] Encounter Status:Closed by GABI JENNINGS on 05/02/25 [facility] XR LUMBAR 4V AP/LAT/ FLEX/EX Ton 05-02-2025 XR LUMBAR 4V AP/LAT/ FLEX/EXT * * *Final Report* * * DATE OF EXAM: May 02 2025 9:48AM A1X 5231 - XR LUMBAR 4V AP/LAT/ FLEX/EXT / PROCEDURE REASON: Low back pain, unspecified back pain laterality, unspecified chronicity, unspeci * * * * Physician Interpretation * * * * EXAMINATION / TECHNIQUE: XR LUMBAR 4V AP/LAT/ FLEX/EXT HISTORY: back pain, left leg numbness, burning, tingling, cramping, difficulty standing and walking Low back pain, unspecified back pain laterality, unspecified chronicity, unspecified whether sciatica present . COMPARISON: 11/22/2024 RESULT: Lumbar vertebrae demonstrate normal height. Minimal grade 1 retrolisthesis L5-S1. No dynamic instability. Scattered osteophytes and facet arthrosis. Mild disc space narrowing L5-S1. Atherosclerotic calcification of the aorta. Counting reference: Lumbosacral junction. For the purposes of this report, L4-5 is considered the level of the iliac crest and assume there are 5 lumbar-type vertebrae. Anatomic variant: None. IMPRESSION: Scattered degenerative changes without acute osseous findings. Tower Excavator Operator: JOEL Transcribe Date/Time: May 06 2025 7:09A Dictated by : MARCO ANTONIO RODRIGUEZ MD This examination was interpreted and the report reviewed and electronically signed by: MARCO ANTONIO RODRIGUEZ MD on May 06 2025 7:11AM EST [id number] Normal [facility] Orthopedic Visit Reporton Orthopedic Visit Report [facility] [address] [place] [address] OFFICE VISIT Date of Service: 11/25/24 MR#: [id number] Acct: [id number] Name: JOSIE CORREA II Rep #: [id number] : 1975 Provider: YOHAN Warren Age/Sex: 49/M Location: [facility] Status: Signed Intake Vital Signs 10/19/24 10:32 11/25/24 10:01 Height 5 ft 7 in 5 ft 7 in Weight: 211 lb 2 oz 210 lb BMI 33.0 32.8 Intake Visit Reasons: LUMBAR SPINE Chief Complaint: Lumbar Spine Pain Accompanied by: Is patient in pain?: Yes Pain scale (1-10): 10 Allergies No Known Allergies Allergy (Verified 11/25/24 10:04) Medications ???Medication ???Instructions ???Recorded ???Confirmed ???Type labetalol 100 mg tablet 100 mg PO BID #180 tabs 05/03/24 0 11/25/24 Rx escitalopram oxalate 5 mg tablet 5 mg PO QDAY #90 tabs 07/06/2411/16 Rx (Lexapro) cyclobenzaprine 5 mg tablet 5 mg PO TID PRN muscle spasm #30 0 10/19/24 11/25/24 Rx tabs Have you fallen in the past year?: No PFSH Medical History Sciatica Annual wellness visit Chronic neck and back pain Shoulder pain Rectal bleeding Sleep apnea History of back problems Rectal bleeding Hyperlipidemia Unstable angina Anxiety Tobacco abuse Hypertension Chest pain Surgical History History of placement of ear tubes History of left heart catheterization (08/23/19) Family History Father Born with 3 heart valves instead of 4 Hypertension High cholesterol Uncle Hypertension Social History Smoking Status: Former smoker alcohol intake: current alcohol intake frequency: holidays/special occasions only substance use type: does not use HPI LUMBAR SPINE Details: This documentation accurately reflects the service provided and the decisions made by me, YOHAN Warren 11/25/24 1001. Part of today???s visit was documented by Penny Hearn MA, acting as scribe. JOSIE CORREA is a 49 year old M here today for lumbar spine MRI review. Patient is having severe pain today. He states that he has an appointment today with pain management for a steroid injection with Dr. Wang. Does not he continues to have pain over the last 5 to 6 months which has not improved. To recall I did order cyclobenzaprine and meloxicam the last time he was here which he took and has not noticed any significant improvement. Says that his pain radiates down the back of the left leg. Says that the leg pain is his primary issue more so than the back pain. He continues to do physical therapy at work and has not had any improvement. HPI from 10/19/24: JOSIE CORREA is a 49 year old M here today for lumbar spine pain. Patient states the back pain started about 5 months ago when he had an MRI for his brain. Says that the pain has been worsening since this time. He states the pain started after being in the machine. He did complain to the technicians that his back was starting to hurt and they told him not to move. He states when he got out of the machine he could barely stand up. He complains of pain over the left lumbar spine and complains of pain that does down into the buttocks, hip and down into his ankle. He complains of burning, numbness and tingling. He states last it did start hurting on the middle to the right side. He states when this happened the back locked up on him and he fell to the ground. He states the pain is now starting to affect his job. Patient denies injections. He did physical therapy at work, [employer], with a PT Jimmy Sandoval. He states this helps him to stand up straight but the pain does not go away. He has been seeing PT for a month at work and has been seeing him 2x per week. He is doing different stretches and exercises which seems to worsen the pain. When patient was younger he did mess up his back a little bit and he did have an injection back then, this was about 13 years ago. He denies any surgery to the back. He has not had any imaging of the lumbar spine. He takes 800 mg ibuprofen over the counter as needed with no benefit. He has done some icing of his lumbar back which she says does give him some very mild temporary relief. Says that the pain improves when he is leaning forward and then as soon as he starts to straighten his spine back out the pain increases. Denies any balance issues that is not related to his pain. Ortho Exam General General: Yes no acute distress Neurologic: Yes alert and Yes oriented x3 Spine SPINE TESTING CERVICAL THORACIC LUMBAR Musculoskeletal Strength 0=absent - 5=normal D (more content not included)... Normal [facility] Spine Lumbar (Routine)on Spine Lumbar (Routine) [facility] Imaging Services [address] [place], [place] [id number] Spine Lumbar (Routine) MR#: [id number] Acct: [id number] Name: JOSIE CORREA II Rep #: [id number] : 1975 M 49 From: Sree boss MD PCP: Dr. Marianela Tam MD Status: DEP CLI Study: Spine Lumbar (Routine) Date of Exam: 11/22/24 Exam# [id number] Ordering Dr: Aneta Marrero EXAM: MRI lumbar spine without contrast. CLINICAL HISTORY: Back pain COMPARISON: Lumbar spine radiograph 10/19/2024 TECHNIQUE: Multiplanar multisequence MRI of the lumbar spine without contrast. FINDINGS: There is normal lumbar lordosis. The lumbar vertebral bodies are normal in height. No evidence of compression fracture. Alignment is normal. No listhesis. The bone marrow signal is unremarkable. There is no abnormal bone STIR signal. The included distal thoracic cord is normal in caliber and signal. The conus medullaris terminates at L1 level. There is no clumping of the nerve roots. T12/L1: No significant canal stenosis or neural foraminal narrowing. L1/2: No significant canal stenosis or neural foraminal narrowing.. L2/3: No significant canal stenosis or neural foraminal narrowing.. L3/4: Small disc bulge with flattening of the ventral thecal sac. No significant canal stenosis or neural foraminal narrowing. L4/5: Disc protrusion with annular tear, mild facet degenerative changes with mild canal stenosis. Mild left neural foraminal narrowing. Right neural foramen is patent.. L5/S1: Circumferential disc bulge with superimposed asymmetric disc protrusion to the right extending to the subarticular recess with moderate canal stenosis. [id number] ft subarticular recess narrowing. Mild bilateral facet degenerative changes are also noted. Mild bilateral neural foraminal narrowing.. The visualized prevertebral and paraspinal soft tissues are unremarkable. MRI/Spine Lumbar (Routine) IMPRESSION: 1. Multilevel degenerative changes as detailed above including L4-L5 and L5-S1.; at L4-L5 there is annular fissure tear with mild canal stenosis. 2. At L5-S1, there is moderate canal stenosis and neural foraminal narrowing with subarticular recess narrowing. Reading Location: [facility] CC: YOHAN Warren; Dr. Marianela Tam MD Tower Excavator Operator: Signed Normal [facility] L/S Spine Min 4 Viewson 09-26 L/S Spine Min 4 Views [facility] [address] [place], [place] [id number] L/S Spine Min 4 Views MR#: [id number] Acct: [id number] Name: JOSIE CORREA II Rep #: [id number] : 1975 M 49 From: Hong Chase i, DO PCP: Dr. Marianela Tam MD Status: DEP AMB Study: L/S Spine Min 4 Views Date of Exam: 10/19/24 Exam# [id number] Ordering Dr: Aneta Marrero PROCEDURE: Lumbar spine radiographs, four views REASON FOR EXAM: Pain TECHNIQUE: Four views of the lumbar spine were obtained. COMPARISON: None. FINDINGS: Four views of the lumbar spine were obtained. The included portions of the pelvis and SI joints are intact. No acute fracture or focal subluxation of the lumbar spine. Mild multilevel degenerative disc and facet disease in the lumbar spine. On flexion and extension views, no evidence of instability. Mild degenerative changes in the hip joints, greatest on the right. RAD/L/S Spine Min 4 Views IMPRESSION: No acute bony abnormality of the lumbar spine. Mild multilevel degenerative disc and facet disease in the lumbar spine. No evidence of instability on flexion and extension views. Reading Location: [facility] CC: YOHAN Warren; Dr. Marianela Tam MD Tower Excavator Operator: Signed Normal [facility] Orthopedic Visit Reporton Orthopedic Visit Report [facility] [address] [place] [address] [address] [place] [address] OFFICE VISIT Date of Service: 10/19/24 MR#: [id number] Acct: [id number] Name: JOSIE CORREA II Rep #: [id number] : 1975 Provider: YOHAN Warren Age/Sex: 49/M Location: [facility] Status: Signed Intake Vital Signs 05/03/24 09:59 10/19/24 10:32 Height 5 ft 7 in 5 ft 7 in Weight: 211 lb 2 oz BMI 33.0 Intake Visit Reasons: LUMBAR SPINE Chief Complaint: Lumbar Spine Pain Accompanied by: Self Is patient in pain?: Yes Pain scale (1-10): 10 Allergies No Known Allergies Allergy (Verified 10/19/24 10:33) Medications ???Medication ???Instructions ???Recorded ???Confirmed ???Type labetalol 100 mg tablet 100 mg PO BID #180 tabs 05/03/24 0 10/19/24 Rx escitalopram oxalate 5 mg tablet 5 mg PO QDAY #90 tabs 07/06/24 Rx (Lexapro) cyclobenzaprine 5 mg tablet 5 mg PO TID PRN muscle spasm #30 0 10/19/24 10/19/24 Rx tabs meloxicam 15 mg tablet 15 mg PO QDAY #30 tabs 10/19/24 Rx PFSH Medical History Sciatica Annual wellness visit Chronic neck and back pain Shoulder pain Rectal bleeding Sleep apnea History of back problems Rectal bleeding Hyperlipidemia Unstable angina Anxiety Tobacco abuse Hypertension Chest pain Surgical History History of placement of ear tubes History of left heart catheterization (08/23/19) Family History Father Born with 3 heart valves instead of 4 Hypertension High cholesterol Uncle Hypertension Social History Smoking Status: Former smoker alcohol intake: current alcohol intake frequency: holidays/special occasions only substance use type: does not use HPI LUMBAR SPINE Details: This documentation accurately reflects the service provided and the decisions made by me, YOHAN Warren 10/19/24 1031. Part of today???s visit was documented by Willa Kennedy ATC, acting as scribe. JOSIE CORREA is a 49 year old M here today for lumbar spine pain. Patient states the back pain started about 5 months ago when he had an MRI for his brain. Says that the pain has been worsening since this time. He states the pain started after being in the machine. He did complain to the technicians that his back was starting to hurt and they told him not to move. He states when he got out of the machine he could barely stand up. He complains of pain over the left lumbar spine and complains of pain that does down into the buttocks, hip and down into his ankle. He complains of burning, numbness and tingling. He states last it did start hurting on the middle to the right side. He states when this happened the back locked up on him and he fell to the ground. He states the pain is now starting to affect his job. Patient denies injections. He did physical therapy at work, [employer], with a PT Jimmy Sandoval. He states this helps him to stand up straight but the pain does not go away. He has been seeing PT for a month at work and has been seeing him 2x per week. He is doing different stretches and exercises which seems to worsen the pain. When patient was younger he did mess up his back a little bit and he did have an injection back then, this was about 13 years ago. He denies any surgery to the back. He has not had any imaging of the lumbar spine. He takes 800 mg ibuprofen over the counter as needed with no benefit. He has done some icing of his lumbar back which she says does give him some very mild temporary relief. Says that the pain improves when he is leaning forward and then as soon as he starts to straighten his spine back out the pain increases. Denies any balance issues that is not related to his pain. Ortho Exam General General: Yes no acute distress Neurologic: Yes alert and Yes oriented x3 Spine SPINE TESTING CERVICAL THORACIC LUMBAR Musculoskeletal Strength 0=absent - 5=normal Details: Neurological exam of the lower extremities shows 5x5 power. Increased back pain with left knee extension. Increased pain with back extension. Normal sensations across all dermatomes. No hyperreflexia. No midline tenderness, left paraspinal tenderness. Passive straight leg raise positive on the left. Coding Level of Care Code Off vis,new,level 4 Diagnoses Lumbar radiculopathy M54.16 Assessment and Plan Assessment and Plan (1) Lumbar radiculopathy: Status: Acute Orders: Orders L/S Spine Min 4 Views Today M54.50 - Low back pain, unspecified Spine Lumbar (Routine) Today M54.16 - Radiculopathy, lumbar region Referrals Pain Management M54.16 - Radiculopat (more content not included)... Normal [facility] Absolute lymphocyte countOrd ered By: Low Beltran on 02-26-2023 Lymphocytes Auto (Unsp spec) [#/Vol] 2.25 10*3/uL 0.83-4.51 [facility] Basophil percentageOrdered B y: Low Beltran on 02-26-2023 Basophils/100 WBC (Bld) 0.5 % 0-1 [facility] Bilirubin [Mass/Vol] 1.10 mg/dL 0.20-1.00 [facility] Comment on above: For patients on eltr ombopag therapy, use of Dimension [place] TBIL is not recommended. Chloride [Moles/Vol] 106 mmol/L 98-107 [facility] Eosinophils/100 WBC (Bld) 1.8 % 0-5 [facility] Glucose [Mass/Vol] 95 mg/dL 74-106 [facility] Neutrophils (Bld) [#/Vol] 3.3 10*3/uL 2.0-7.7 [facility] Neutrophils/100 WBC (Bld) 52.9 % 47-70 [facility] Potassium [Moles/Vol] 3.9 mmol/L 3.5-5.1 [facility] Protein [Mass/Vol] 7.4 g/dL 6.4-8.2 [facility] Sodium [Moles/Vol] 137 mmol/L 136-145 [facility] WBC (Bld) [#/Vol] 6.2 10*3/uL 4.4-11.0 [facility] Bilirubin Test strip Ql (U)O rdered By: Low Beltran on 02-26-2023 Bilirubin Ql (U) Negative Negative [facility] Blood erythrocytes count (nu mber/volume)Ordered By: Low Beltran on 02-26-2023 RBC (Bld) [#/Vol] 4.84 10*6/uL 4.6-6.2 [facility] Blood hemoglobin measurement (mass/volume)Ordered By: Low Beltran on 02-26-2023 Hemoglobin (Bld) [Mass/Vol] 14.0 g/dL 13.0-16.5 [facility] Blood lymphocytes/100 leukoc ytesOrdered By: Low Beltran on 02-26-2023 Lymphocytes/100 WBC (Bld) 36.4 % 19-41 [facility] Blood monocytes/100 leukocyt esOrdered By: Low Beltran on 02-26-2023 Monocytes/100 WBC (Bld) 7.6 % 0-10 [facility] Blood platelet mean volumeOr dered By: Low Beltran on 02-26-2023 Platelet mean volume (Bld) [Entitic vol] 9.3 fL 6.2-12.0 [facility] Determination of erythrocyte mean corpuscular volume (MCV)Ordered By: Low Beltran on 02-26-2023 MCV (RBC) [Entitic vol] 81.6 fL 80-94 [facility] Hematocrit Auto (Bld) [Volum e fraction]Ordered By: Low Beltran on 02-26-2023 Hematocrit (Bld) [Volume fraction] 39.5 % 40-54 [facility] Ketones Test strip Ql (U)Ord ered By: Low Beltran on 02-26-2023 Ketones Ql (U) Negative Negative [facility] Laboratory - Chemistry and C hemistry - challengeOrdered By: Low Beltran on 02-26-2023 ALP [Catalytic activity/Vol] 83 U/L 45-117 [facility] ALT [Catalytic activity/Vol] 47 U/L 16-61 [facility] CO2 [Moles/Vol] 27.0 mmol/L 21.0-32.0 [facility] Globulin (S) [Mass/Vol] 3.7 g/dL 2.2-4.2 [facility] Lipase [Catalytic activity/Vol] 22 U/L 13-75 [facility] Comment on above: Please note:LIPASE r evised reference range effective 23. New Lipase methodology. Expected to produce lower values than the previous assay method. NEW Reference Range: 13 - 75 U/L Urea nitrogen/Creatinine [Mass ratio] 5.9 mg/mg 10-20 [facility] Laboratory - Hematology and Cell countsOrdered By: Low Beltran on 02-26-2023 Erythrocyte distribution width (RBC) [Entitic vol] 37.0 fL 35.1-43.9 [facility] Erythrocyte distribution width (RBC) [Ratio] 12.5 % 11.6-14.6 [facility] Immature granulocytes/100 WBC (Bld) 0.800 % 0.0-0.9 [facility] Comment on above: IG% - Immature Granu locytes (promyelocytes, myelocytes and metamyelocytes) > 1% indicates that a LEFT SHIFT is Present. MCH (RBC) [Entitic mass] 28.9 pg 27.0-32.0 [facility] Nucleated RBC/100 WBC (Bld) [Ratio] 0 % 0-5 [facility] MCHC Auto (RBC) [Mass/Vol]Or dered By: Low Beltran on 02-26-2023 MCHC (RBC) [Mass/Vol] 35.4 g/dL 32-36 [facility] Nitrite Test strip Ql (U)Ord ered By: Low Beltran on 02-26-2023 Nitrite Ql (U) Negative Negative [facility] No Panel InformationOrdered By: Low Beltran on 02-26-2023 Estimated Creatinine Clearance Calc 71.75 ml/min [facility] Estimated GFR (MDRD) Amer 84 mL/min >60 [facility] Comment on above: GFR Calc Estimated GFR (MDRD) Non-Af Amer 69 mL/min >60 [facility] Comment on above: Non- GFR Calc Platelets bldOrdered By: Dirk Beltran on 02-26-2023 Platelets (Bld) [#/Vol] 287 10*3/uL 150-450 [facility] Protein Test strip Ql (U)Ord ered By: Low Beltran on 02-26-2023 Protein Ql (U) Negative Negative [facility] Serum or plasma albumin fallon urement (mass/volume)Ordered By: Low Beltran on 02-26-2023 Albumin [Mass/Vol] 3.7 g/dL 3.2-5.0 [facility] Serum or plasma albumin/glob ulin mass ratioOrdered By: Low Beltran on 02-26-2023 Albumin/Globulin [Mass ratio] 1.0 {ratio} 0.9-2.4 [facility] Serum or plasma calcium fallon urement (mass/volume)Ordered By: Low Beltran on 02-26-2023 Calcium [Mass/Vol] 9.0 mg/dL 8.5-10.1 [facility] Serum or plasma creatinine m easurement (mass/volume)Ordered By: Low Beltran on 02-26-2023 Creatinine [Mass/Vol] 1.19 mg/dL 0.70-1.30 [facility] Comment on above: The validity of the calculated GFR & GFRAA in patients over 70 years has not been determined. Clinical correlation is essential. Serum or plasma urea nitroge n measurement (mass/volume)Ordered By: Low Beltran on 02-26-2023 Urea nitrogen [Mass/Vol] 7 mg/dL 7-18 [facility] Thin prep Papanicolaou smear with manual screeningOrdered By: Low Beltran on 02-26-2023 Thin prep Papanicolaou smear with manual screening 27 U/L 15-37 [facility] Thin prep Papanicolaou smear with manual screening 4 5-15 [facility] Urine blood detectionOrdered By: Low Beltran on 02-26-2023 RBC Ql (U) Negative Negative [facility] Urine clarityOrdered By: Dirk Beltran on 02-26-2023 Clarity (U) Sl. Cloudy Clear [facility] Urine color determinationOrd ered By: Low Beltran on 02-26-2023 Color (U) Yellow Yellow [facility] Urine glucose detectionOrder ed By: Low Beltran on 02-26-2023 Glucose Ql (U) Normal mg/dl Normal [facility] Urine leukocyte esterase det ection by dipstickOrdered By: Low Beltran on 02-26-2023 Leukocyte esterase Test strip Ql (U) Negative Negative [facility] Urine pHOrdered By: Low orlando on 02-26-2023 pH (U) 7.0 [pH] 5.0 - 8.0 [facility] Urine specific gravity measu rementOrdered By: Low Beltran on 02-26-2023 Specific gravity (U) [Rel density] 1.005 1.002-1.030 [facility] Urobilinogen Auto test strip Ql (U)Ordered By: Low Beltran on 02-26-2023 Urobilinogen Ql (U) Normal mg/dl Normal [facility] Absolute lymphocyte countOrd ered By: Dr. Roger on 01-08-2023 Lymphocytes Auto (Unsp spec) [#/Vol] 2.63 10*3/uL 0.83-4.51 [facility] Basophil percentageOrdered B y: Dr. Roger on 01-08-2023 Basophils/100 WBC (Bld) 0.7 % 0-1 [facility] Bilirubin [Mass/Vol] 1.00 mg/dL 0.20-1.00 [facility] Comment on above: For patients on eltr ombopag therapy, use of Dimension [place] TBIL is not recommended. Chloride [Moles/Vol] 105 mmol/L 98-107 [facility] Eosinophils/100 WBC (Bld) 1.5 % 0-5 [facility] Glucose [Mass/Vol] 109 mg/dL 74-106 [facility] Comment on above: Fasting Glucose resu lt from 100 to 125 mg/dL suggests IMPAIRED HOMEOSTASIS per A.D.A. criteria. Neutrophils (Bld) [#/Vol] 3.5 10*3/uL 2.0-7.7 [facility] Neutrophils/100 WBC (Bld) 50.6 % 47-70 [facility] Potassium [Moles/Vol] 4.2 mmol/L 3.5-5.1 [facility] Protein [Mass/Vol] 7.2 g/dL 6.4-8.2 [facility] Sodium [Moles/Vol] 139 mmol/L 136-145 [facility] WBC (Bld) [#/Vol] 6.9 10*3/uL 4.4-11.0 [facility] Blood erythrocytes count (nu mber/volume)Ordered By: Dr. Roger on 01-08-2023 RBC (Bld) [#/Vol] 4.96 10*6/uL 4.6-6.2 [facility] Blood hemoglobin measurement (mass/volume)Ordered By: Dr. Roger on 01-08-2023 Hemoglobin (Bld) [Mass/Vol] 13.9 g/dL 13.0-16.5 [facility] Blood lymphocytes/100 leukoc ytesOrdered By: Dr. Roger on 01-08-2023 Lymphocytes/100 WBC (Bld) 38.3 % 19-41 [facility] Blood monocytes/100 leukocyt esOrdered By: Dr. Roger on 01-08-2023 Monocytes/100 WBC (Bld) 8.0 % 0-10 [facility] Blood platelet mean volumeOr dered By: Dr. Roger on 01-08-2023 Platelet mean volume (Bld) [Entitic vol] 9.6 fL 6.2-12.0 [facility] Determination of erythrocyte mean corpuscular volume (MCV)Ordered By: Dr. Roger on 01-08-2023 MCV (RBC) [Entitic vol] 84.5 fL 80-94 [facility] Direct bilirubinOrdered By: Dr. Roger on 01-08-2023 Bilirubin.direct [Mass/Vol] 0.14 mg/dL 0.00-0.30 [facility] Hematocrit Auto (Bld) [Volum e fraction]Ordered By: Dr. Roger on 01-08-2023 Hematocrit (Bld) [Volume fraction] 41.9 % 40-54 [facility] Laboratory - Chemistry and C hemistry - challengeOrdered By: Dr. Roger on 01-08-2023 ALP [Catalytic activity/Vol] 80 U/L 45-117 [facility] ALT [Catalytic activity/Vol] 56 U/L 16-61 [facility] CO2 [Moles/Vol] 28.0 mmol/L 21.0-32.0 [facility] Globulin (S) [Mass/Vol] 3.4 g/dL 2.2-4.2 [facility] Lipase [Catalytic activity/Vol] 24 U/L 13-75 [facility] Comment on above: Please note:LIPASE r evised reference range effective 23. New Lipase methodology. Expected to produce lower values than the previous assay method. NEW Reference Range: 13 - 75 U/L Urea nitrogen/Creatinine [Mass ratio] 6.8 mg/mg 10-20 [facility] Laboratory - Hematology and Cell countsOrdered By: Dr. Roger on 01-08-2023 Erythrocyte distribution width (RBC) [Entitic vol] 39.2 fL 35.1-43.9 [facility] Erythrocyte distribution width (RBC) [Ratio] 12.8 % 11.6-14.6 [facility] Immature granulocytes/100 WBC (Bld) 0.900 % 0.0-0.9 [facility] Comment on above: IG% - Immature Granu locytes (promyelocytes, myelocytes and metamyelocytes) > 1% indicates that a LEFT SHIFT is Present. MCH (RBC) [Entitic mass] 28.0 pg 27.0-32.0 [facility] Nucleated RBC/100 WBC (Bld) [Ratio] 0 % 0-5 [facility] MCHC Auto (RBC) [Mass/Vol]Or dered By: Dr. Roger on 01-08-2023 MCHC (RBC) [Mass/Vol] 33.2 g/dL 32-36 [facility] No Panel InformationOrdered By: Dr. Roger on 01-08-2023 Troponin I High Sensitivity 8 pg/mL 3.0-78.0 [facility] Comment on above: Please Note: New [place] t Units and Gender Specific Reference Ranges. For more information see Policy Stat Procedure [place] High Sensitivity Troponin (TNIH) and attachments. Estimated Creatinine Clearance Calc 64.68 ml/min [facility] Estimated GFR (MDRD) Amer 75 mL/min >60 [facility] Comment on above: GFR Calc Estimated GFR (MDRD) Non-Af Amer 62 mL/min >60 [facility] Comment on above: Non- GFR Calc Platelets bldOrdered By: Dr. Roger on 01-08-2023 Platelets (Bld) [#/Vol] 307 10*3/uL 150-450 [facility] Serum or plasma albumin fallon urement (mass/volume)Ordered By: Dr. Roger on 01-08-2023 Albumin [Mass/Vol] 3.8 g/dL 3.2-5.0 [facility] Serum or plasma calcium fallon urement (mass/volume)Ordered By: Dr. Roger on 01-08-2023 Calcium [Mass/Vol] 8.8 mg/dL 8.5-10.1 [facility] Serum or plasma creatinine m easurement (mass/volume)Ordered By: Dr. Roger on 01-08-2023 Creatinine [Mass/Vol] 1.32 mg/dL 0.70-1.30 [facility] Comment on above: The validity of the calculated GFR & GFRAA in patients over 70 years has not been determined. Clinical correlation is essential. Serum or plasma urea nitroge n measurement (mass/volume)Ordered By: Dr. Roger on 01-08-2023 Urea nitrogen [Mass/Vol] 9 mg/dL 7-18 [facility] Thin prep Papanicolaou smear with manual screeningOrdered By: Dr. Roger on 01-08-2023 Thin prep Papanicolaou smear with manual screening 31 U/L 15-37 [facility] Thin prep Papanicolaou smear with manual screening 6 5-15 [facility] Absolute lymphocyte counton 11-07-2021 Lymphocytes Auto (Unsp spec) [#/Vol] 1.59 10*3/uL 0.83-4.51 [facility] Work Phone: Basophil percentageon 2021 Basophils/100 WBC (Bld) 0.3 % 0-1 [facility] Work Phone: Bilirubin [Mass/Vol] 0.90 mg/dL 0.20-1.00 [facility] Work Phone: Comment on above: For patients on eltr ombopag therapy, use of Dimension [place] TBIL is not recommended. Chloride [Moles/Vol] 106 mmol/L 98-107 [facility] Work Phone: Cholesterol [Mass/Vol] 234 mg/dL <200 [facility] Work Phone: Comment on above: <200 mg/dL Desirable 200-240 mg/dL Borderline >240 mg/dL High Risk Eosinophils/100 WBC (Bld) 1.6 % 0-5 [facility] Work Phone: Glucose [Mass/Vol] 90 mg/dL 74-106 [facility] Work Phone: [phone] Neutrophils (Bld) [#/Vol] 4.0 10*3/uL 2.0-7.7 [facility] Work Phone: [phone] Neutrophils/100 WBC (Bld) 63.5 % 47-70 [facility] Work Phone: [phone] Potassium [Moles/Vol] 3.9 mmol/L 3.5-5.[address] [facility] Work Phone: [phone] Protein [Mass/Vol] 7.5 g/dL 6.4-8.2 [facility] Work Phone: [phone] Sodium [Moles/Vol] 138 mmol/L 136-145 [facility] Work Phone: [phone] Triglyceride [Mass/Vol] 311 mg/dL [facility] Work Phone: [phone] Comment on above: The drugs N-Acetylcy steine and Metamizole may falsely depress this assay.Serum Triglycerides Reference Interval Normal <150 mg/dL Borderline high 150 - 199 mg/dL High 200 - 499 mg/dL Very High > or = 500 mg/dL WBC (Bld) [#/Vol] 6.4 10*3/uL 4.4-11.0 [facility] Work Phone: Blood erythrocytes count (nu mber/volume)on 11-07-2021 RBC (Bld) [#/Vol] 5.20 10*6/uL 4.6-6.2 [facility] Work Phone: [phone] Blood hemoglobin measurement (mass/volume)on 11-07-2021 Hemoglobin (Bld) [Mass/Vol] 15.2 g/dL 13.0-16.5 [facility] Work Phone: Blood lymphocytes/100 leukoc yteson 11-07-2021 Lymphocytes/100 WBC (Bld) 25.0 % 19-41 [facility] Work Phone: [phone] Blood monocytes/100 leukocyt eson 11-07-2021 Monocytes/100 WBC (Bld) 9.1 % 0-10 [facility] Work Phone: Blood platelet mean volumeon 11-07-2021 Platelet mean volume (Bld) [Entitic vol] 10.3 fL 6.2-12.0 [facility] Work Phone: Determination of erythrocyte mean corpuscular volume (MCV)on 11-07-2021 MCV (RBC) [Entitic vol] 84.8 fL 80-94 [facility] Work Phone: Hematocrit Auto (Bld) [Volum e fraction]on 11-07-2021 Hematocrit (Bld) [Volume fraction] 44.1 % 40-54 [facility] Work Phone: Laboratory - Chemistry and C hemistry - challengeon 11-07-2021 ALP [Catalytic activity/Vol] 97 U/L 45-117 [facility] Work Phone: [phone] ALT [Catalytic activity/Vol] 47 U/L 16-61 [facility] Work Phone: [phone] CO2 [Moles/Vol] 28.0 mmol/L 21.0-32.0 [facility] Work Phone: Free T4 [Mass/Vol] 0.97 ng/dL 0.76-1.46 [facility] Work Phone: Globulin (S) [Mass/Vol] 3.4 g/dL 2.2-4.2 [facility] Work Phone: [phone] Urea nitrogen/Creatinine [Mass ratio] 8.3 mg/mg 10-20 [facility] Work Phone: Laboratory - Hematology and Cell countson 11-07-2021 Erythrocyte distribution width (RBC) [Entitic vol] 39.2 fL 35.1-43.9 [facility] Work Phone: Erythrocyte distribution width (RBC) [Ratio] 12.9 % 11.6-14.6 [facility] Work Phone: Immature granulocytes/100 WBC (Bld) 0.500 % 0.0-0.9 [facility] Work Phone: Comment on above: IG% - Immature Granu locytes (promyelocytes, myelocytes and metamyelocytes) > 1% indicates that a LEFT SHIFT is Present. MCH (RBC) [Entitic mass] 29.2 pg 27.0-32.0 [facility] Work Phone: Nucleated RBC/100 WBC (Bld) [Ratio] 0 % 0-5 [facility] Work Phone: [phone] MCHC Auto (RBC) [Mass/Vol]on 11-07-2021 MCHC (RBC) [Mass/Vol] 34.5 g/dL 32-36 [facility] Work Phone: No Panel Informationon 11-07 Estimated GFR (MDRD) Amer 94 mL/min >60 [facility] Work Phone: Comment on above: GFR Calc Estimated GFR (MDRD) Non-Af Amer 78 mL/min >60 [facility] Work Phone: [phone] Comment on above: Non- GFR Calc Free Triiodothyronine (T3) pg/dL 3.5 pg/mL 2.18-3.98 [facility] Work Phone: [phone] Prostate Specific Antigen Screen 0.98 ng/mL 0.00-4.00 [facility] Work Phone: [phone] Comment on above: This test was perfor med using the TPSA assay method for the[facility] chemistry system. Values obtained with differentassay methods cannot be used interchangably.When changing PSA assays in the course of monitoring apatient, additional sequential testing should be carriedout to confirm baseline values. Thyroid Stimulating Hormone (TSH) 1.07 uIU/mL 0.358-3.74 [facility] Work Phone: [phone] Vitamin D 25-Hydroxy 22.9 ng/mL [facility] Work Phone: [phone] Comment on above: Vitamin D 25(OH) Sta tus Range Deficiency <20 ng/mL (50nmol/L) Insufficiency 20 - 30 ng/mL (50 - 75 nmol/L) Sufficiency 30 - 100 ng/mL (75 - 250 nmol/L) Toxicity >100 ng/mL (>250 nmol/L) Platelets bldon 11-07-2021 Platelets (Bld) [#/Vol] 308 10*3/uL 150-450 [facility] Work Phone: Serum or plasma albumin fallon urement (mass/volume)on 11-07-2021 Albumin [Mass/Vol] 4.1 g/dL 3.2-5.0 [facility] Work Phone: Serum or plasma albumin/glob ulin mass ratioon 11-07-2021 Albumin/Globulin [Mass ratio] 1.2 {ratio} 0.9-2.4 [facility] Work Phone: Serum or plasma calcium fallon urement (mass/volume)on 11-07-2021 Calcium [Mass/Vol] 8.6 mg/dL 8.5-10.1 [facility] Work Phone: Serum or plasma cholesterol in HDL measurement (mass/volume)on 11-07-2021 Cholesterol in HDL [Mass/Vol] 28 mg/dL [facility] Work Phone: Comment on above: The drugs N-Acetylcy steine and Metamizole may falsely depress this assay. Reference Range HDL <40 mg/dL Low HDL Cholesterol HDL >or= 60 mg/dL High HDL Cholesterol Serum or plasma cholesterol in VLDL measurement (mass/volume)on 11-07-2021 Cholesterol in VLDL [Mass/Vol] 62 mg/dL 5-40 [facility] Work Phone: Serum or plasma creatinine m easurement (mass/volume)on 11-07-2021 Creatinine [Mass/Vol] 1.08 mg/dL 0.70-1.30 [facility] Work Phone: Comment on above: The validity of the calculated GFR & GFRAA in patients over 70 years has not been determined. Clinical correlation is essential. Serum or plasma low density lipoprotein (LDL) cholesterol measurement (mass/volume)on 11-07-2021 Cholesterol in LDL [Mass/Vol] 144 mg/dL 0-130 [facility] Work Phone: Serum or plasma urea nitroge n measurement (mass/volume)on 11-07-2021 Urea nitrogen [Mass/Vol] 9 mg/dL 7-18 [facility] Work Phone: Thin prep Papanicolaou smear with manual screeningon 11-07-2021 Thin prep Papanicolaou smear with manual screening 25 U/L 15-37 [facility] Work Phone: Thin prep Papanicolaou smear with manual screening 4 5-15 [facility] Work Phone: Whole blood hemoglobin A1c/t otal hemoglobin ratio (mass fraction)on 11-07-2021 HbA1c (Bld) [Mass fraction] 5.4 % 3.8-5.6 [facility] Work Phone: Comment on above: Normal < 5.7 % Predi abetic 5.7 - 6.4 % Diabetic >or= 6.5 % Please note range changes. Vital Signs Date Time Vital Sign Value Performing Clinician Faci lity 06-09-2025 11:47-0400 Body height 170.[address] Marianela Tam MD Work Phone: [facility] 06-09-2025 11:47-0400 Body mass index (BMI) [Ratio] 32.8 kg/m2 Dr. Marianela Tam MD Work Phone: [facility] 06-09-2025 11:47-0400 Body temperature 98.6 [degF] Dr. Marianela Tam MD Work Phone: [facility] 06-09-2025 11:47-0400 Body weight 95.[address] Marianela Tam MD Work Phone: [facility] 06-09-2025 11:47-0400 Diastolic blood pressure 114 mm[Hg] Dr. Marianela Tam MD Work Phone: [facility] 06-09-2025 11:47-0400 Heart rate 94 /min Dr. Marianela Tam MD Work Phone: [facility] 06-09-2025 11:47-0400 Respiratory rate 16 /min Dr. Marianela Tam MD Work Phone: [facility] 06-09-2025 11:47-0400 SaO2% (BldA) [Mass fraction] 97 % Dr. Marianela Tam MD Work Phone: [facility] 06-09-2025 11:47-0400 Systolic blood pressure 176 mm[Hg] Dr. Marianela Tam MD Work Phone: [facility] 05-02-2025 09:42-0400 Diastolic blood pressure 98 mm[Hg] Aditya Lama MD, PhD Work Phone: [facility] 05-02-2025 09:42-0400 Heart rate 91 /min Aditya Lama MD, PhD Work Phone: [facility] 05-02-2025 09:42-0400 Respiratory rate 16 /min Aditya Lama MD, PhD Work Phone: [facility] 05-02-2025 09:42-0400 SaO2% (BldA) [Mass fraction] 99 % Aditya Lama MD, PhD Work Phone: [facility] 05-02-2025 09:42-0400 Systolic blood pressure 161 mm[Hg] Aditya Lama MD, PhD Work Phone: [facility] 05-02-2025 09:34-0400 Body height 170.2 cm Aditya Lama MD, PhD Work Phone: [facility] 05-02-2025 09:34-0400 Body mass index (BMI) [Ratio] 31.32 kg/m2 Aditya Lama MD, PhD Work Phone: [facility] 05-02-2025 09:34-0400 Body weight 90.72 kg Aditya Lama MD, PhD Work Phone: [facility] 10-19-2024 10:32-0500 Body height 170.[address] Marianela Tam MD Work Phone: [facility] 10-19-2024 10:32-0500 Body mass index (BMI) [Ratio] 33 kg/m2 Dr. Marianela Tam MD Work Phone: [facility] 10-19-2024 10:32-0500 Body weight 95.[address] Marianela Tam MD Work Phone: [facility] 02-26-2023 18:55-0400 Diastolic blood pressure 74 mm[Hg] [facility] 02-26-2023 18:55-0400 Heart rate 62 /min [facility] 02-26-2023 18:55-0400 Respiratory rate 15 /min [facility] 02-26-2023 18:55-0400 SaO2% (BldA) [Mass fraction] 98 % [facility] 02-26-2023 18:55-0400 Systolic blood pressure 124 mm[Hg] [facility] 02-26-2023 15:19-0400 Body mass index (BMI) [Ratio] 32.8 kg/m2 [facility] 02-26-2023 15:19-0400 Body weight 95 kg [facility] 02-26-2023 15:06-0400 Body height 170.18 cm [facility] 02-26-2023 15:06-0400 Body temperature 97.8 [degF] [facility] 01-08-2023 19:11-0400 Diastolic blood pressure 87 mm[Hg] [facility] 01-08-2023 19:11-0400 Heart rate 75 /min [facility] 01-08-2023 19:11-0400 Respiratory rate 17 /min [facility] 01-08-2023 19:11-0400 SaO2% (BldA) [Mass fraction] 98 % [facility] 01-08-2023 19:11-0400 Systolic blood pressure 150 mm[Hg] [facility] 01-08-2023 15:11-0400 Body height 170.18 cm [facility] 01-08-2023 15:11-0400 Body mass index (BMI) [Ratio] 32.8 kg/m2 [facility] 01-08-2023 15:11-0400 Body temperature 97.7 [degF] [facility] 01-08-2023 15:11-0400 Body weight 95.25 kg [facility] 12-12-2021 08:52-0400 Body height 170.[address] Clara Keller Work Phone: [facility] Work Phone: 12-12-2021 08:52-0400 Body mass index (BMI) [Ratio] 31.2 kg/m2 Dr. Clara Keller Work Phone: [facility] Work Phone: 12-12-2021 08:52-0400 Body temperature 97.4 [degF] Dr. Clara Keller Work Phone: [facility] Work Phone: 12-12-2021 08:52-0400 Body weight 90.[address] Clara Keller Work Phone: [facility] Work Phone: 12-12-2021 08:52-0400 Diastolic blood pressure 91 mm[Hg] Dr. Clara Keller Work Phone: [facility] Work Phone: 12-12-2021 08:52-0400 Heart rate 76 /min Dr. Clara Keller Work Phone: [facility] Work Phone: 12-12-2021 08:52-0400 Respiratory rate 16 /min Dr. Clara Keller Work Phone: [facility] Work Phone: 12-12-2021 08:52-0400 SaO2% (BldA) [Mass fraction] 99 % Dr. Clara Keller Work Phone: [facility] Work Phone: 12-12-2021 08:52-0400 Systolic blood pressure 162 mm[Hg] Dr. Clara Keller Work Phone: [facility] Work Phone: 11-07-2021 10:47-0400 Body height 170.[address] Clara Keller Work Phone: [facility] Work Phone: 11-07-2021 10:47-0400 Body mass index (BMI) [Ratio] 31.8 kg/m2 Dr. Clara Keller Work Phone: [facility] Work Phone: 11-07-2021 10:47-0400 Body temperature 96.6 [degF] Dr. Clara Keller Work Phone: [facility] Work Phone: 11-07-2021 10:47-0400 Body weight 92.[address] Clara Keller Work Phone: [facility] Work Phone: 11-07-2021 10:47-0400 Diastolic blood pressure 88 mm[Hg] Dr. Clara Keller Work Phone: [facility] Work Phone: 11-07-2021 10:47-0400 Heart rate 82 /min Dr. Clara Keller Work Phone: [facility] Work Phone: 11-07-2021 10:47-0400 Respiratory rate 16 /min Dr. Clara Keller Work Phone: [facility] Work Phone: 11-07-2021 10:47-0400 SaO2% (BldA) [Mass fraction] 98 % Dr. Clara Keller Work Phone: [facility] Work Phone: 11-07-2021 10:47-0400 Systolic blood pressure 160 mm[Hg] Dr. Clara Keller Work Phone: [facility] Work Phone: Encounters Encounter Date Encounter Type Care Provider Facility Start: 07-02-2025 Encounter for other preprocedural examination Magno Griggs [facility] Start: 06-30-2025 End: 06-30-2025 Evaluation and management of inpatient ADITYA LAMA Facility:[facility] Start: 06-21-2025 ambulatory Marianela Tam Facility :[facility] Start: 06-21-2025 End: 06-21-2025 ambulatory Marianela Tam Facility:[facility] Start: 06-09-2025 End: 06-09-[address] Marianela Tam MD -[facility] Work Phone: Start: 06-09-2025 End: 06-09-[address] Marianela Tam MD [facility] Start: 06-09-2025 End: 06-09-[address] Marianela Tam MD Work Phone: -[facility] Start: 06-09-2025 End: 06-09-2025 ambulatory ADITYA LAMA [facility] Start: 06-08-2025 ambulatory ADITYA LAMA Facili ty:[facility] Start: 05-31-2025 Encounter for other preprocedural examination ADITYA LAMA [facility] Start: 05-30-2025 End: 05-30-2025 ambulatory ADITYA RICHIK [facility] Start: 05-19-2025 End: 05-19-2025 ambulatory ADITYA JACOBSLUK Facility:[facility] Start: 05-02-2025 End: 05-02-2025 Telephone encounter Aditya Lama MD, PhD Work Phone: [facility] Comment on above: Patient Question Start: 05-02-2025 End: 05-02-2025 Patient encounter procedure Aditya Lama MD, PhD Work Phone: [facility] Comment on above: Low back pain, unspe cified back pain laterality, unspecified chronicity, unspecified whether sciatica present (Primary Dx); Tingling sensation; Tobacco use; Radiculopathy, lumbar region Start: 05-02-2025 End: 05-02-2025 ambulatory MARIANELA TAM Facility:[facility] Start: 05-02-2025 End: 05-02-2025 Subsequent hospital visit by physician [employer] [place] [employer] Comment on above: Low back pain, unspe cified back pain laterality, unspecified chronicity, unspecified whether sciatica present [M54.50] Start: 11-25-2024 End: 11-25-2024 ambulatory Aneta Marrero Facility:[facility] Start: 11-22-2024 End: 11-22-[address] Marianela Tam MD Work Phone: [facility] Work Phone: Start: 11-22-2024 End: 11-22-2024 Patient encounter procedure Aneta ALMANZAR -[facility] Work Phone: Start: 11-22-2024 End: 11-22-2024 ambulatory Aneta Marrero Facility:[facility] Start: 10-19-2024 End: 10-19-2024 Patient encounter procedure Aneta ALMANZAR -[facility] Work Phone: Start: 10-19-2024 End: 10-19-2024 ambulatory Aneta Marrero Facility:[facility] Start: 08-02-2024 ambulatory Marianela Tam Facility :[facility] Start: 05-03-[address] Marianela Tam MD Work Phone: [facility] Start: 02-26-2023 End: 02-26-2023 Emergency department patient visit [facility]Emergency Department Work Phone: Start: 01-08-2023 End: 01-08-2023 Emergency department patient visit [facility]Emergency Department Start: 03-20-2022 End: 03-20-[address] Clara Keller Work Phone: [facility]-Sleep Lab Start: 12-12-2021 End: 12-12-[address] Clara Keller Work Phone: [facility]-Pulmonary Medicine [facility] Start: 11-28-2021 End: 11-28-[address] Clara Kleler Work Phone: [facility]-Sleep Lab Start: 11-07-2021 End: 11-07-[address] Clara Keller Work Phone: [facility]-Laboratory, [facility] Start: 11-07-2021 End: 11-07-[address] Clara Keller Work Phone: [facility] Internal Medicine Procedures Date Procedure Procedure Detail Performing Clinician Start: 06-09-2025 Antibody screen ADITYA LAMA Comment on above: Order Comment: Speci men Type: BLOOD SPECIMEN Ordering Facility: [facility] Address: [address] [place] [address] Performed By: #### T [id number] #### [facility]OD [facility] CLIA [id number] [address] [place] [address] [place] Start: 10-19-2024 X-ray of lumbosacral spine Dr. Marianela Tam MD Work Phone: Start: 02-26-2023 Computed tomography of abdomen and pelvis with intravenous contrast Start: 01-08-2023 CT of head without contrast Start: 01-08-2023 Plain chest X-ray Plan of Treatment Date Care Activity Detail Author Start: 06-21-2025 Non-patient / Non-visit Non-pa tient / Non-visit -[facility] Start: 06-21-2025 Cardiovascular stres s test using pharmacologic stress agent Nuclear Stress Test - Chemical [facility] Start: 06-21-2025 Patient encounter procedure Registered Clinical -Cardiovascular Services Work Phone: Start: 05-30-2025 End: 05-30-2025 Patient encounter procedure 05/30/2025 9:30 AM EDT Office Visit [facility] [address] [place] [address] Aditya Lama MD, PhD [address] [address] 4 week follow up [facility] Comment on above: 4 week follow up Start: 04-25-2025 Influenza vaccination Influenza Vacc ine (#1) [facility] Start: 2025 Screening for malign ant neoplasm of lung Lung Cancer Screening [facility] Start: 2025 Shingrix Vaccine (1 of 2) Shingrix Vaccine (1 of 2) [facility] Start: 11-22-2024 MR Lumbar spine [facility] Start: 11-22-2024 MRI of lumbar spine Spine Lumbar (Ro utine) [facility] Start: 10-19-2024 Patient referral [facility] Work Phone: Start: 01-08-2023 [facility] Start: 02-28-2020 Diabetes Screening Diabetes Screenin g [facility] Start: 02-28-2020 Screening for malign ant neoplasm of colon [facility] Start: 2010 Lipid panel Lipid Screening [facility] Start: 1994 Hepatitis B Vaccine (1 of 3 - 19+ 3-dose series) Hepatitis B Vaccine (1 of 3 - 19+ 3-dose series) [facility] Start: 1994 Pneumococcal Vaccine : 50+ (1 of 2 - PCV) Pneumococcal Vaccine: 50+ (1 of 2 - PCV) [facility] Start: 1994 Urine microalbumin profile DTaP,Tdap,Td Vaccine (1 - Tdap) [facility] Start: 1993 Anxiety Screening Anxiety Screening [facility] Start: 1993 Depression Screening Depression Scre ening [facility] Start: 1993 Hepatitis C screening Hepatitis C Sc reening [facility] Start: 1993 HIV screening HIV Screening [facility] [id number] measurement [facility] Work Phone: End: 05-02-2026 EMG(NEURO/NI) EMG(NEURO/NI) EMG BIB Tingling sensation Radiculopathy, lumbar region 1 Occurrences starting 05/02/2025 until 05/02/2026 [facility] Comment on above: 1 Occurrences starti ng 05/02/2025 until 05/02/2026 Patient Education [facility] Work Phone: Patient referral [facility] Work Phone: End: 05-23-2026 XR Lumbar spine Views W flexion and W extension XR LUMBAR MOTION 4V AP/LAT/ FLEX/EXT Radiology Routine Low back pain, unspecified back pain laterality, unspecified chronicity, unspecified whether sciatica present 1 Occurrences starting 04/22/2025 until 05/23/2026 [facility] Work Phone: Comment on above: 1 Occurrences starti ng 04/22/2025 until 05/23/2026 XR Lumbar spine View s W flexion and W extension XR LUMBAR MOTION 4V AP/LAT/ FLEX/EXT Radiology Routine Low back pain, unspecified back pain laterality, unspecified chronicity, unspecified whether sciatica present 05/02/2025 9:48 AM EDT [facility] Immunizations Immunization Date Immunization Notes Care Provider Fa [facility] 06-11-2018 influenza virus vacc ine, unspecified formulation Aditya Lama MD, PhD Work Phone: [facility] Payers Date Payer Category Payer Self-pay [id number] 2014 [facility] Blue [facility] BLUE CARD PPO OOS [id number] 2014 Unknown [id number] Unknown [id number] Unknown [id number] Unknown [id number] Unknown [id number] Unknown [id number] Unknown [id number] Unknown [id number] Unknown [id number] Social History Date Type Detail Facility Start: 11-07-2021 End: 02-26-2023 Tobacco smoking status NHIS Unknown if ever smoked [facility] Start: 08-21-2019 Rare [facility] Start: 08-21-2019 None [facility] Start: 06-09-2018 With Family [facility] Start: 07-11-2020 Cigarettes [facility] Start: 1975 Sex Assigned At Male [facility] Start: 03-03-2023 [facility] Start: 11-24-2024 Sex Male (finding) [facility] Start: 05-02-2025 [facility] History of tobacco use Cigarette Smoker C [facility] Start: 06-11-2018 End: 05-02-2025 Cigarettes smoked current (pack per day) - Reported 1.5 [facility] Start: 05-02-2025 Tobacco use and exposure Smokeless tobacco non-user [facility] Start: 05-02-2025 Alcoholic beverage intake Current drinker of alcohol (finding) [facility] Start: 06-11-2018 End: 05-02-2025 Tobacco use panel [facility] Start: 04-16-2017 Adult Depression Screening Assessment 0 [facility] Start: 04-17-2017 Alcohol Comment socially [facility] Start: 1975 Sex assigned at Not on file C [facility] Mental Status Date Assessment Result Facility 01-08-2023 Cognitive function Level Of Cons ciousness Awake;Alert;Appropriate;Follow s Commands [facility] Work Phone: Clinical Notes 01-08-2023 to 06-30-2025 Note Date & Type Note Facility 06-30-2025 Note HNO ID: [id number] Author: ADOLFO MIDDLETON PA-C Service: Neurosurgery Author Type: Physician Claims Examiner Type: Plan of Care Filed: 06/30/2025 13:23 Note Text: Post Operative Note Date of procedure: June 30, 2025 Subjective: Recovering post-op, reports improvement in LLE symptoms. Interested in discharge. Exam: GENERAL: Awake and alert; NAD NEURO: Orientedx3; speech clear and fluent; HOLM HEENT: Normocephalic; atraumatic LUNGS: Unlabored breathing NECK/BACK: Incision C/D/I CARDIAC: Rate and rhythm as above EXTREMITIES: No deformities, No edema SKIN: Skin color normal; Temperature normal; no rashes or lesions Post operative plan: -Discharge home with family. Family updated on plan. -Discharge instructions reviewed, including lifting restrictions -Medications sent to pharmacy The following problems are present on admission at this time: Obesity Continue current outpatient treatment plan and current medications for these conditions, except where otherwise noted. SIGNATURE: Adolfo Middleton PA-C PATIENT NAME: Josie Correa DATE: June 30, 2025 TIME: 1:21 PM Pager: [phone] [facility] 06-30-2025 Note HNO ID: [id number] Author: DAVID CORRALES APRN.CRNA Service: Anesthesiology Author Type: Nurse Date Puller Type: Anesthesia Procedure Notes Filed: 06/30/2025 08:45 Note Text: ANESTHESIOLOGY PROCEDURE NOTE Airway General Information Procedure Start Time/Medication Administration: 06/30/2025 8:04 AM Procedure End Time: 06/30/2025 8:05 AM Patient location during procedure: OR Timeout Performed Pre-procedure: timeout performed Consent Obtained: Yes Patient identity confirmed: arm band Staffing [employer] ASSEMBLER: David Corrales APRN.[employer] ASSEMBLER Performed by: LEATHER [employer] II ASSEMBLER Indications and Patient Condition Indications for airway management: anesthesia Preoxygenated: yes anesthesia circuit Method: asleep Difficult Mask: No Final Airway Details Final airway type: endotracheal airwayFinal Endotracheal Airway: ETT Cuffed: yes Successful intubation technique: video laryngoscopy Devices used: Veras and intubating stylet Endotracheal tube insertion site: oral Blade size: #4 ETT size (mm): 7.5 Measured from: lips Measurement (cm): 21 Placement verified by: chest auscultation and capnometry Cormack-Lehane Classification: grade I - full view of glottis Number of attempts at approach: 1 Airway not difficult SIGNATURE: David Corrales APRN.[employer] ASSEMBLER PATIENT NAME: Josie Correa DATE: June 30, 2025 TIME: 8:44 AM CSN: [id number] [facility] 06-10-2025 Note HNO ID: [id number] Author: JESSE RAMIREZ APRN.[facility] ASST Service: Anesthesiology Author Type: Nurse Practitioner Type: Progress Notes Filed: 06/10/2025 09:49 Note Text: -- Summary: Anesthesia -- JESS PAT notes, concerns, ECG from PAT, Heart cath 2019, METS 5.5, ECG 2019 reviewed with anesthesia, Dr. Wesley. Okay to proceed with surgery. No further workup or optimization requested by anesthesia. I faxed a request to the surgeon Dr. Lama office requesting a copy of the medical optimization be scanned into [employer] once received. Vivian please follow up regarding medical optimization. Thank you! [facility] 06-09-2025 Progress note Note Date/Time June 09, 2025 1:00pm [facility] [address] [place] [address] OFFICE VISIT Date of Service: 06/09/25 MR#: [id number] Acct: [id number] Name: JOSIE CORREA II Rep #: [id number] : 1975 Provider: Dr. Tori Tam MD Age/Sex: 50/M Location: [facility] Status: Signed Intake Vital Signs 11/25/24 10:01 06/09/25 11:47 Height 5 ft 7 in 5 ft 7 in Weight: 210 lb 210 lb BMI 32.8 32.8 BP 176/114 H Blood Pressure Location Rt brachial Position Sitting Respiration 16 Pulse 94 Pulse Source Monitor Temp 98.6 F Temp Source Temporal Pulse Oximetry (%) 97 Oxygen Delivery Method room air Intake Visit Reasons: Surgery Clearance Chief Complaint: Lower back pain Organizational Consultant Required: No Accompanied by: Self Is patient in pain?: Yes (Lower back pain) Pain scale (1-10): 10 Allergies No Known Allergies Allergy (Verified 06/09/25 11:39) Medications ?Medication ?Instructions ?Recorded ?Confirmed ?Type labetalol 100 mg tablet 100 mg PO BID #180 tabs 05/1806/09/25 Rx diazepam 5 mg tablet (Valium) 5 mg PO ONCE PRN anxiety #1 TAB 06/09/25 06/09/25 Rx gabapentin 300 mg capsule 300 mg PO BID #60 caps 06/0906/09/25 Rx hydrocodone-acetaminophen 5-325mg 1 tab PO BID PRN bradley n 7 days #14 06/09/25 06/09/25 Rx 5mg-325mg tabs PFSH Medical History (Updated 06/09/25 @ 12:[address] Marianela Tam MD) Abnormal ECG Preop exam for internal medicine Sciatica Annual wellness visit Chronic neck and back pain Shoulder pain Rectal bleeding Sleep apnea History of back problems Rectal bleeding Hyperlipidemia Unstable angina Anxiety Tobacco abuse Hypertension Chest pain Surgical History History of placement of ear tubes History of left heart catheterization (08/23/19) Family History Father Born with 3 heart valves instead of 4 Hypertension High cholesterol Uncle Hypertension Social History Smoking Status: Former smoker alcohol intake: current alcohol intake frequency: holidays/special occasions only substance use type: does not use HPI HPI Chief Complaint: Lower back pain Details: JOSIE CORREA, is a 50 M who presents to the office today for preop evaluation. [place] set to undergo discectomy [facility] Armendariz on June 23, 2025. Had preop evaluation there this AM. Had ECG, suggestive possible inferior ischemia. He had a heart cath in 2019, and at that time had no significant blockages, but 30% RCA disease. He had continued to smoke until about 2 years ago. 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 He has a history of low HDL, elevated total cholesterol (230s), elevated LDL (130s) but alow HDL in the mid 20s to most recently mid 30s. Has been encouraged in past to change diet pattern, get rid of foods high in the heat unstable vegetable oils such as chips, fries, snacks, etc. He is not having episodes of chest pain, chest tightness, dyspnea on exertion. No prior MO, stents, cardiac interventions, palpitations, fluttering, skipped heart beats. He has been prescribed gabapentin by pain management for back pain. Saw PA here at [facility], and was referred to pain mgt (Dr. Wang) and had injections (multiple). I was not aware of his ongoing issues with back pain, injections, consults, nor [facility] involvement where he self referred apparently after discussing with his insurance company. I was aware of initial visit with YOHAN. He has been on labetalol 100 mg PO BID for blood pressure control, and was started on this due to BP in setting of anxiety/stress related. He states some days only takes once daily. Reminded to take BID and why. ROS per above. Vitals on chart. EOMI. PERRL. Neck supple, thyroid not enlarged. Pharynx clear, no obvious oral mucosal lesions. Lung are without wheezes, ronchi, or rales. Normal air movement. Heart is regular and without obvious murmurs, rubs, or gallops. Abdomen is soft throughout. No clear masses in the abdomen. Non tenderthroughout the abdomen. No significant edema. ROS Const Constitutional: Positive for sleep problems; No body ache, chills, excessive sweating, fatigue, fever(s), frequent falls, headache(s), snoring, weakness or change in appetite Eyes Eyes: No blurry vision, change in vision, eye pain or Light sensitivity ENT ENT: No abnormal hearing, ear or mastoid pain, tinnitus, nasal congestion, headache(s), neck pain or sore throat Resp Respiratory: No cough, shortness of breath, snoring or wheezing Cardio Cardiology: No chest pain at rest, chest pain with exertion, excessive sweating,dyspnea on exertion, lightheadedness, orthopnea or palpitations Gastro GI: No abdominal pain, change in bowel habits, constipation, cramping, diarrhea,nausea/dyspepsia or vomiting Genitourinary Male: No burning urination, painful urination, urinary incontinence or urinary frequency Musc Musculoskeletal: Positive for abnormal gait, back pain, limited range of motion,numbness (Left leg) and tingling (Left leg ); No joint pain, muscle weakness or neck pain Skin Skin: No dry skin, redness, lesions, itchy eyes, rash or wounds Neuro Neurology: Positive for abnormal gait, numbness (Left leg) and tingling (Left leg ); No abnormal hearing, weakness, frequent falls, headache(s) or memory loss Psych Psychiatric: No anxiety, No change in appetite, No depression, No memory loss and No Thoughts of harming yourself/Others Endo Endocrine: No cold intolerance, excessive sweating, fatigue, flushing, heat intolerance, increased thirst/drinking or increased hunger Aller/Imm Allergy/Immunologic: No itchy eyes, seasonal allergy symptoms, hives or wheezing Wyatt/Lymp Hematologic/Lymphatic: No easy bleeding or easy bruising Coding Level of Care Code Off vis,est,level 4 Diagnoses Preop exam for internal medicine Z01.818 Abnormal ECG R94.31 Lumbar radiculopathy M54.16 Hyperlipidemia E78.5 Hypertension I10 Anxiety F41.9 Time Spent (min) 40 Assessment and Plan Assessment and Plan (1) Preop exam for internal medicine: Status: Acute (2) Abnormal ECG: Status: Acute (3) Lumbar radiculopathy: Status: Acute (4) Hyperlipidemia: Status: Chronic (5) Hypertension: Status: Chronic (6) Anxiety: Status: Chronic Orders: Orders Nuclear Stress Test - Chemical 06/09/25 M54.16 - Radiculopathy, lumbar region, R94.31 - Abnormal electrocardiogram [ECG] [EKG], Z01.818 - Encounter for other preprocedural examination Medications: New diazepam (Valium) Take morning of procedure. 5 mg PO ONCE PRN 1 TAB 0RF anxiety hydrocodone-acetaminophen 5-325 mg 1 TAB PO BID PRN 14 tabs 0RF pain 7 days M54.16 - Radiculopathy, lumbar region gabapentin 300 mg PO BID 60 caps 0RF Plan Details Additional Comments: Pt. presented today for preop evaluation as above. Last seen July 2024. Had labs and ECG done today preop at [facility]. Labs not available to me. ECG suggests possible inferior ischemia (consider). Considering that it is possible since had 30% disease in 2019, and continued to smoke, and other concerning dietary issues (deep fried, chips, etc) that area may have progressed. He is asymptomatic. It is recommended as most reasonbly minded physicians would, to proceed to pharacologic stress test nuclear. He cannot walk given his lumbar radicular symptoms. Await stress. Requesting one dose valium to take AM of procedure, refill on gabapentin, and PRN vicodin. He is aware that the [facility] restricts my prescribing on hydrocodone-acetaminophen to 7 days. Prescriptions sent. Try to obtain labs done preop this morning. 40 minute visit. 06/10/25 1242 <Electronically signed by Marianela kennedy MD> Date _ Marianela Blanchard Signature: Date (if applicable) CC: ~ [employer] [facility] Work Phone: 1(682) 404-229810-16-2025 Evaluation note* Diagnosis Onset Date Resolution Status Admit Date Abnormal ECG acute May 11:39am Lumbar radiculopathy acute Octo 2024 11:39am Preop exam for internal medicine acute June 09 11:39am Anxiety chronic June 09, 2025 11:39am Hyperlipidemia chronic June 092024 11:39am Hypertension chronic May 11:39am [employer] [facility] Work Phone: 1([phone]) 542-526910-16-2025 [facility] [address] [place] [address] OFFICE VISIT Date of Service: 06/09/25 MR#: [id number] Acct: [id number] Name: JOSIE CORREA II Rep #: [id number] : 1975 Provider: Dr. Tori Tam MD Age/Sex: 50/M Location: [facility] Status: Signed Intake Vital Signs 11/25/24 10:01 06/09/25 11:47 Height 5 ft 7 in 5 ft 7 in Weight: 210 lb 210 lb BMI 32.8 32.8 BP 176/114 H Blood Pressure Location Rt brachial Position Sitting Respiration 16 Pulse 94 Pulse Source Monitor Temp 98.6 F Temp Source Temporal Pulse Oximetry (%) 97 Oxygen Delivery Method room air Intake Visit Reasons: Surgery Clearance Chief Complaint: Lower back pain Organizational Consultant Required: No Accompanied by: Self Is patient in pain?: Yes (Lower back pain) Pain scale (1-10): 10 Allergies No Known Allergies Allergy (Verified 06/09/25 11:39) Medications ?Medication ?Instructions ?Recorded ?Confirmed ?Type labetalol 100 mg tablet 100 mg PO BID #180 tabs 05/1806/09/25 Rx diazepam 5 mg tablet (Valium) 5 mg PO ONCE PRN anxiety #1 TAB 06/09/25 06/09/25 Rx gabapentin 300 mg capsule 300 mg PO BID #60 caps 06/0906/09/25 Rx hydrocodone-acetaminophen 5-325mg 1 tab PO BID PRN bradley n 7 days #14 06/09/25 06/09/25 Rx 5mg-325mg tabs PFSH Medical History (Updated 06/09/25 @ 12:[address] Marianela Tam MD) Abnormal ECG Preop exam for internal medicine Sciatica Annual wellness visit Chronic neck and back pain Shoulder pain Rectal bleeding Sleep apnea History of back problems Rectal bleeding Hyperlipidemia Unstable angina Anxiety Tobacco abuse Hypertension Chest pain Surgical History History of placement of ear tubes History of left heart catheterization (08/23/19) Family History Father Born with 3 heart valves instead of 4 Hypertension High cholesterol Uncle Hypertension Social History Smoking Status: Former smoker alcohol intake: current alcohol intake frequency: holidays/special occasions only substance use type: does not use HPI HPI Chief Complaint: Lower back pain Details: JOSIE CORREA, is a 50 M who presents to the office today for preop evaluation. Dale set to undergo discectomy [facility] on June 23, 2025. Had preop evaluation there this AM. Had ECG, suggestive possible inferior ischemia. He had a heart cath in 2019, and at that time had no significant blockages, but 30% RCA disease. He had continued to smoke until about 2 years ago. 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 He has a history of low HDL, elevated total cholesterol (230s), elevatedLDL (130s) but alow HDL in the mid 20s to most recently mid 30s. Has been encouraged in past to change diet pattern, get rid of foods high in the heat unstable vegetable oils such as chips, fries, snacks, etc. He is not having episodes of chest pain, chest tightness, dyspnea on exertion. No prior MO, stents,cardiac interventions, palpitations, fluttering, skipped heart beats. He has been prescribed gabapentin by pain management for back pain. Saw PA here at [facility], and was referred to pain mgt (Dr. Wang) and had injections (multiple). I was not aware ofhis ongoing issues with back pain, injections, consults, nor [facility] involvement where he self referredapparently after discussing with his insurance company. I was aware of initial visit with PA. He has been on labetalol 100 mg PO BID for blood pressure control, and was started on this due to BP in setting of anxiety/stress related. He states some days only takes once daily. Reminded to take BID and why. ROS per above. Vitals on chart. EOMI. PERRL. Neck supple, thyroid not enlarged. Pharynx clear, no obvious oral mucosal lesions. Lung are without wheezes, ronchi, or rales. Normal air movement. Heart is regular and without obvious murmurs, rubs, or gallops. Abdomen is soft throughout. No clear masses in the abdomen. Non tenderthroughout the abdomen. No significant edema. ROS Const Constitutional: Positive for sleep problems; No body ache, chills, excessive sweating, fatigue, fever(s), frequent falls, headache(s), snoring, weakness or change in appetite Eyes Eyes: No blurry vision, change in vision, eye pain or Light sensitivity ENT ENT: No abnormal hearing, ear or mastoid pain, tinnitus, nasal congestion, headache(s), neck pain or sore throat Resp Respiratory: No cough, shortness of breath, snoring or wheezing Cardio Cardiology: No chest pain at rest, chest pain with exertion, excessive sweating,dyspnea on exertion, lightheadedness, orthopnea or palpitations Gastro GI: No abdominal pain, change in bowel habits, constipation, cramping, diarrhea,nausea/dyspepsia orvomiting Genitourinary Male: No burning urination, painful urination, urinary incontinence or urinary frequency Musc Musculoskeletal: Positive for abnormal gait, back pain, limited range of motion,numbness (Left leg)and tingling (Left leg ); No joint pain, muscle weakness or neck pain Skin Skin: No dry skin, redness, lesions, itchy eyes, rash or wounds Neuro Neurology: Positive for abnormal gait, numbness (Left leg) and tingling (Left leg ); No abnormal hearing, weakness, frequent falls, headache(s) or memory loss Psych Psychiatric: No anxiety, No change in appetite, No depression, No memory loss and No Thoughts of harming yourself/Others Endo Endocrine: No cold intolerance, excessive sweating, fatigue, flushing, heat intolerance, increased thirst/drinking or increased hunger Aller/Imm Allergy/Immunologic: No itchy eyes, seasonal allergy symptoms, hives or wheezing Wyatt/Lymp Hematologic/Lymphatic: No easy bleeding or easy bruising Coding Level of Care Code Off vis,est,level 4 Diagnoses Preop exam for internal medicine Z01.818 Abnormal ECG R94.31 Lumbar radiculopathy M54.16 Hyperlipidemia E78.5 Hypertension I10 Anxiety F41.9 Time Spent (min) 40 Assessment and Plan Assessment and Plan (1) Preop exam for internal medicine: Status: Acute (2) Abnormal ECG: Status: Acute (3) Lumbar radiculopathy: Status: Acute (4) Hyperlipidemia: Status: Chronic (5) Hypertension: Status: Chronic (6) Anxiety: Status: Chronic Orders: Orders Nuclear Stress Test - Chemical 06/09/25 M54.16 - Radiculopathy, lumbar region, R94.31 - Abnormal electrocardiogram [ECG] [EKG], Z01.818 - Encounter for other preprocedural examination Medications: New diazepam (Valium) Take morning of procedure. 5 mg PO ONCE PRN 1 TAB 0RF anxiety hydrocodone-acetaminophen 5-325 mg 1 TAB PO BID PRN 14 tabs 0RF pain 7 days M54.16 - Radiculopathy,lumbar region gabapentin 300 mg PO BID 60 caps 0RF Plan Details Additional Comments: Pt. presented today for preop evaluation as above. Last seen July 2024. Had labs and ECG done today preop at [facility]. Labs not available to me. ECG suggests possible inferior ischemia (consider). Considering that it is possible since had 30% disease in 2019, and continued to smoke, and other concerning dietary issues (deep fried, chips, etc) that area may have progressed. He is asymptomatic. It is recommended as most reasonbly minded physicians would, to proceed to pharacologic stress test nuclear. He cannot walk given his lumbar radicular symptoms. Await stress. Requesting one dose valium to take AM of procedure, refill on gabapentin, and PRN vicodin. He is aware that the [facility] restricts my prescribing on hydrocodone-acetaminophen to 7 days. Prescriptions sent. Try to obtain labs done preop this morning. 40 minute visit. 06/10/25 1242 r > Date _ Marianela Clemens Signature: Date (if applicable) CC: ~ [facility]10-16-2025 NoteHNO ID: [id number] Author: LORA SEN APRN.[facility] ASST Service: ? Author Type: Nurse Practitioner Type: Progress Notes Filed: 06/09/2025 10:00 Note Text: Red Dot ECG ordered by Neurosurgery was abnormal, Please review with anesthesia. A copy of the ECG done in PAT provided to patient to take to his Medical Optimization appointment scheduled after PAT visit.[facility]10-15-2025 NoteHNO ID: [id number] Author: APPLE METZGER RT(Marcia) Service: ? Author Type: Technologist Type: Progress Notes Filed: 06/08/2025 11:19 Note Text: Radiology Service Progress Note PATIENT NAME: Josie Correa DATE OF SERVICE: June 08, 2025 TIME: 11:19 AM PATIENT IDENTITY VERIFICATION COMPLETED USING TWO (2) IDENTIFIERS: Name and Date of confirmed by patient verbally. FALL SCREENING: Has the patient had 2 falls in the last year or 1 fall with injury or currently using an Ambulatory Assistive Device (Walker, Cane, Wheelchair, Crutches, etc.)? Yes, Patient High Risk for Falls What interventions were put in place to prevent falls during this visit? Instructed Patient to Call for Help if Needed, Offered Assistance with Transfers/Clothing, Instructed Patient to Remain Seated (Not on Exam Table) Until Exam, and Increased Observations by Caregivers PATIENT GENDER DATA: Assigned male at PATIENT RELEVANT IMPLANT DATA REVIEWED: Yes PATIENT PRESENTS WITH AN IMPLANTABLE OR ATTACHED PUBLIC RELATIONS COUNSELOR: No RADIOLOGY DEPARTMENT: MR; Exam(s) Completed: Spine: Lumbar spine. Anesthesia: No. Aromatherapy Administered: No PERIPHERAL IV DATA: Not applicable SIGNED BY: RT Mello(R) June 08, 2025 11:19 [facility]10-06-2025 NoteHNO ID: [id number] Author: ADITYA LAMA MD, PhD Service: ? Author Type: Physician Type: Progress Notes Filed: 05/30/2025 10:12 Note Text: NEUROSURGERY FOLLOW UP OFFICE NOTE Aditya Lama MD, PhD Date of visit: May 30, 2025 Patient Name: Mr.Raymond Rahel Correa Date of : 1975 Current Age: [age] year old Sex: male MRN/E# [id number] Last Office Visit: 05/02/2025 Chief Complaint: Patient presents with: Established Patient SUBJECTIVE: HPI The patient is a 50 year old, right handed male with a past medical history of anxiety, hyperlipidemia, unstable angina and tobacco use who is self referred for neurosurgical evaluation. Patient presented to the office on 05/02/2025 as a new patient with worsening low back pain and left leg radiculopathy. He was accompanied by his father, who provided additional history. Josie reported experiencing low back pain for over a year, which had progressively worsened. He described the pain as intermittent, with a baseline intensity of 8/10, escalating to 10/10 with movement. The pain was exacerbated by standing and walking and alleviated by lying on his right side. He also experienced pain when lying on his back. He does not endorse any falls, bowel, or bladder issues. He reported radicular symptoms in the left leg, including cramping, numbness, tingling, and burning, extending from the posterior thigh to the calf and foot. The entire left foot is described as tingly. These symptoms began approximately a year ago and had worsened over time. He noted bilateral leg weakness and reported that his whole leg goes numb when standing. He does not endorse any dexterity issues. Josie had undergone 6-8 injections in his low back at [facility] without relief. He had been taking gabapentin 600 mg daily and meloxicam 15 mg, which he found helpful. He had also been attending physical therapy twice a week, with his last session on May 07 or . 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 He reported significant impact on his daily activities, stating, I can't barely do anything, and I can't even go to the bathroom without it killing me. He also mentioned difficulty taking showers, often needing to lie down on the floor afterward. He quit smoking three years ago but continued to use nicotine pouches. He does not endorse any chest pain and reported being generally healthy otherwise. Past Diagnostic Results: - (10/2022) Lumbar Spine MRI: No significant findings of nerve impingement. MRI reviewed; no significant nerve impingement or central stenosis identified; minimal findings do not fully explain the extent of symptoms. EMG nerve conduction studies ordered to further evaluate nerve function and clarify diagnosis; requested expedited scheduling. It was recommended to follow-up in 4 weeks to review EMG results and reassess treatment options. Symptoms: Gait disturbance, low back pain radicular symptoms into the left leg with cramping, numbness, and tingling. Patient's blood pressure elevated at office visit today. Denies chest pain, shortness of breath, headache, blurred vision, dizziness, or lightheadedness. Recommended patient to follow-up with PCP or go to Emergency Department if experiences these symptoms. Patient currently has a known history of hypertension. 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 Mobic Immunosuppressive therapy. None Physical therapy: reports at [facility] Previous healthcare providers: none Pain Management: [facility] Injections: 6-8 low back injections. Reports no relief. PREVIOUS SURGERY: None PAIN EVALUATION 05/30/2025 0912 Pain Level: 10 Pain Location: Back-Lower Description: Aching;Shooting;Throbbing Duration Units: Months Frequency: Intermittent Intervention/Comfort measure: Medication PAST MEDICAL HISTORY Diagnosis Date Anxiety Essential hypertension Hyperlipidemia Tobacco use Unstable angina (HCC) heart cath 07/2019 PAST SURGICAL HISTORY Procedure Laterality Date EAR SURGERY HX Bilateral 1985 FAMILY HISTORY Problem Relation Age of Onset Hypertension Mother Hypertension Father ALLERGIES Allergen Reactions Chantix [Vareniclin* Intolerance bad dreams Current Outpatient Medications Medication Sig Dispense Refill gabapentin (NEURONTIN) 300 mg capsule TAKE 1 CAPSULE BY MOUTH TWICE DAILY FOR 28 DAYS labetalol (TRANDATE) 100 mg tablet Take 1 tablet by mouth every 12 hours. LORazepam (ATIVAN) 2 mg tab 2 mg. (Patient not taking: Reported on 05/30/2025) meclizine (ANTIVERT) 25 mg tab 4 TIMES DAILY NEEDED PRN For Dizziness (Patient not taking: Reported on 05/30/2025) meloxicam (MOBIC) 7.5 mg tablet Take 1 tablet by mouth once daily. (more content not included)...[facility]09-25-2025 NoteHNO ID: [id number] Author: MARIBETH NUGENT MD Service: ? Author Type: Physician Type: Progress Notes Filed: 05/19/2025 11:05 Note Text: UNIVERSAL PROTOCOL / SAFETY CHECKLIST Procedure to be Performed: EMG Sign In: A Moment of CARE was completed. Personnel directly involved with the procedure wore the appropriate PPE (Personal Protective Equipment). Patient/Surrogate Stated/Verified: Patient name, Date of , Relevant allergies, and The intended procedure Time Out Communication: Intended patient and procedure match the source documents. Correct side/site marked and visible. Sign Out: SIGN OUT (optional for EMERGENT procedures): Post-procedure follow-up management communicated and Plan of Care Visit completed when applicable. Suzie Coyne EMG Tech Maribeth Nugent, [facility]09-08-2025 Telephone encounter Note* Telephone Encounter - Gabi Jennings RN - 05/02/2025 4:21 PM EDT This patient the spouse called into the office and said Josie forgot to ask at his appointment today about something for pain and for Dr. Lama to fill out his short term disability paper work. Called patient and his back after speaking with Dr. Lama. Dr. Lama stated he does not have a diagnosis for Josie. We have put in for a stat EMG and for him to follow up. He would need to contact his PCP to fill out any short-term paper work, as far as pain medication, he is followingup with pain management and to proceed with pain management. If he is considering surgery in the future he would need to be nicotine free for 30 days. Elena verbalized understanding and stated she would inform Josie of the above. Gabi Jennings RN [facility] Work Phone: 1(338) 814-200409-08-2025 Miscellaneous Notes* Telephone Encounter - Gabi Jennings RN - 05/02/2025 4:21 PM EDT This patient the spouse called into the office and said Josie forgot to ask at his appointment today about something for pain and for Dr. Lama to fill out his short term disability paper work. Called patient and his back after speaking with Dr. Lama. Dr. Lama stated he does not have a diagnosis for Josie. We have put in for a stat EMG and for him to follow up. He would need to contact his PCP to fill out any short-term paper work, as far as pain medication, he is followingup with pain management and to proceed with pain management. If he is considering surgery in the future he would need to be nicotine free for 30 days. Elena verbalized understanding and stated she would inform Josie of the above. Gabi Jennings RN [facility] History of Present illness Narrative* Aditya Lama MD, PhD - 05/02/2025 10:00 AM EDT NEUROSURGERY CONSULT NOTE Aditya Lama MD, PhD Date of visit: May 02, 2025 Patient Name: Mr.Raymond Rahel Correa Date of : 1975 Current Age: [age] year old Sex: male MRN/E# [id number] Chief Complaint: Patient presents with: New Patient HISTORY OF PRESENT ILLNESS : The patient is a 50 year old, right handed male with a past medical history of anxiety, hyperlipidemia, unstable angina and tobacco use who is self referred for neurosurgical evaluation. Josie Correa is a 50-year-old male presenting with worsening low back pain and left leg radiculopathy. He is accompanied by his father, who provides additional history. Josie reports experiencing low back pain for over a year, which has progressively worsened. He describes the pain as intermittent, with a baseline intensity of 8/10, escalating to 10/10 with movement. The pain is exacerbated by standing and walking and alleviated by lying on his right side. He also experiences pain when lying on his back. He does not endorse any falls, bowel, or bladder issues. He reports radicular symptoms in the left leg, including cramping, numbness, tingling, and burning,extending from the posterior thigh to the calf and foot. The entire left foot is described as tingly. These symptoms began approximately a year ago and have worsened over time. He notes bilateral legweakness and reports that his whole leg goes numb when standing. He does not endorse any dexterity issues. Josie has undergone 6-8 injections in his low back at [facility] without relief. He has been taking gabapentin 600 mg daily and meloxicam 15 mg, which he finds helpful. He has also been attending physical therapy twice a week, with his last session on May 07 or . 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 He reports significant impact on his daily activities, stating, I can't barely do anything, and I can't even go to the bathroom without it killing me. He also mentions difficulty taking showers, often needingto lie down on the floor afterward. He quit smoking three years ago but continues to use nicotine pouches. He does not endorse any chest pain and reports being generally healthy otherwise. Past Diagnostic Results: - (10/2022) Lumbar Spine MRI: No significant findings of nerve impingement. 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 Mobic Immunosuppressive therapy. None Physical therapy: reports at [facility] Previous healthcare providers: none Pain Management: [facility] Injections: 6-8 low back injections. Reports no relief. PREVIOUS SURGERY: None PAIN EVALUATION No data found in the last 1 encounters. PAST MEDICAL HISTORY Diagnosis Date Anxiety Essential hypertension Hyperlipidemia Tobacco use Unstable angina (HCC) heart cath 07/2019 PAST SURGICAL HISTORY Procedure Laterality Date EAR SURGERY HX Bilateral 1985 FAMILY HISTORY Problem Relation Age of Onset Hypertension Mother Hypertension Father ALLERGIES Allergen Reactions Chantix [Vareniclin* Intolerance bad dreams Current Outpatient Medications Medication Sig Dispense Refill gabapentin (NEURONTIN) 300 mg capsule TAKE 1 CAPSULE BY MOUTH TWICE DAILY FOR 28 DAYS labetalol (TRANDATE) 100 mg tablet Take 1 tablet by mouth every 12 hours. LORazepam (ATIVAN) 2 mg tab 2 mg. meclizine (ANTIVERT) 25 mg tab 4 TIMES DAILY NEEDED PRN For Dizziness meloxicam (MOBIC) 7.5 mg tablet Take 1 tablet by mouth once daily. atorvastatin (LIPITOR) 80 mg tablet Take 1 tablet by mouth once daily. 30 tablet 5 metoprolol succinate ER (TOPROL XL) 25 mg 24 hr tablet Take 1 tablet by mouth once daily. 30 tablet5 buPROPion SR (WELLBUTRIN SR) 150 mg 12 hr tablet Take 1 tablet by mouth twice daily. 60 tablet 2 propranolol (INDERAL) 20 mg tablet Take 1 tablet by mouth as needed (30-60 minutes prior to stressful events). 30 tablet 1 lisinopril (ZESTRIL, PRINIVIL) 40 mg tablet Take 1 tablet by mouth once daily. (Patient not taking:Reported on 05/02/2025) 30 tablet 5 aspirin, enteric coated (ASPIRIN, ENTERIC COATED) 81 mg EC tablet Take 81 mg by mouth once daily. (Patient not taking: Reported on 05/02/2025) No current facility-administered medications for this visit. SOCIAL HISTORY: Currently unable to work due to pain; uses nicotine satchels. REVIEW OF SYSTEMS Review of Systems Constitutional: Negative for chills, fatigue and fever. HENT: Negative for ear pain, hearing loss, postnasal drip, sore throat, tinnitus, trouble swallowing and voice change. Eyes: Negative for photophobia and visual disturbance. Respiratory: Negative for cough, choking and shortness of breath. Cardiovascular: Negative for chest pain, palpitations and leg swelling. Gastrointestinal: Negative for constipation, diarrhea, nausea and vomiting. Endocrine: Negative for cold intolerance and heat intolerance. Genitourinary: Negative for decreased urine volume, difficulty urinating, dysuria, frequency, hematuria and urgency. Musculoskeletal: Positive for back pain, gait problem and myalgias. Negative for arthralgias, neck pain and neck stiffness. Skin: Negative for rash and wound. Allergic/Immunologic: Negative for immunocompromised state. Neurological: Positive for weakness and numbness. Negative for dizziness, tremors, seizures, syncope, facial asymmetry, speech difficulty, light- headedness and headaches. Psychiatric/Behavioral: Negative for agitation, behavioral problems and confusion. The patient is not nervous/anxious. OBJECTIVE: BP 161/98 Pulse 91 Resp 16 Ht 5' 7 (1.70m) Wt 200 lb (90.7kg) SpO2 99% BMI 31.32 kg/(m^2). PHYSICAL EXAM: - Abdominal: - Tenderness: Present. - Neurological: - Reflexes: - Lower Extremities: - Achilles: Left: Absent, Right: Present. - Sensation: Decreased sensation on the left side of the foot. - Gait: Patient presents in a wheelchair. Data Review IMAGING STUDIES: XR Lumbar Spine 05/02/2025: in process Imaging: (October) MRI Lumbar Spine: - No significant central canal stenosis - Possible minimal left S1 nerve root involvement - Overall unremarkable X-ray Lumbar Spine: - Normal spinal alignment - No evidence of spondylolisthesis ASSESSMENT: 1. Low back pain 2. Radiculopathy, lumbar region (M54.16) 3. Tingling sensation (R20.2) - Chronic low back pain with worsening radicular symptoms in the left leg, including cramping, numbness, tingling, and burning; pain exacerbated by standing and walking, alleviated by lying on the right side. - MRI reviewed; no significant nerve impingement or central stenosis identified; minimal findings do not fully explain the extent of symptoms. - Physical exam notable for tenderness in the lower back, decreased sensation in the left leg, and loss of Achilles reflex. - Previous treatments, including 6-8 injections and physical therapy, have provided no relief; current medications include gabapentin 200 mg BID and meloxicam 15 mg, with limited efficacy. - EMG nerve conduction studies ordered to further evaluate nerve function and clarify diagnosis; requested expedited scheduling. - Advised patient to discuss increasing gabapentin dosage with prescribing provider, as higher doses may be more effective for neuropathic pain. - Follow-up in 4 weeks to review EMG results and reassess treatment options. 4. Tobacco use (Z72.0) - History of tobacco use; quit smoking 3 years ago; previously used nicotine pouches, now discontinued. PLAN: - Continue meloxicam as directed. - Talk with your pain-management doctor about increasing gabapentin from 600 mg/day to help nerve pain; be aware it can cause drowsiness. - Schedule an EMG nerve conduction study to measure how your nerves are working You ll receive a ty request to help get results sooner. - Keep up with your physical therapy exercises as you ve been doing. - Follow up in about 4 weeks to review your EMG results and discuss next steps. Attestation: The following portions of the patient's history were reviewed, confirmed, and updated as necessary: allergies, current medications, past family history, past medical history, past socialhistory, past surgical history, problem list, HPI, and ROS obtained by others. Some elements may be copied from a previous office note and have been reviewed/updated where appropriate. All portions reflect current medical decision making from today. The clinical and radiographic findings as well as the risks, benefits and alternatives of treatmenthave been reviewed in detail with the patient. The patient was advised to call the office if symptoms worsen or new symptoms develop. The patient expressed understanding and is in agreement with plan. Aditya Lama MD, PhD This note was partially generated using [employer] voice recognition system, and there may be some incorrect words, spellings, and punctuation that were not noted in checking the note before saving. [facility] NoteHNO ID: [id number] Author: ADITYA LAMA MD, PhD Service: ? Author Type: Physician Type: Progress Notes Filed: 05/02/2025 10:31 Note Text: NEUROSURGERY CONSULT NOTE Aditya Lama MD, PhD Date of visit: May 02, 2025 Patient Name: Mr.Raymond Rahel Correa Date of : 1975 Current Age: [age] year old Sex: male MRN/E# [id number] Chief Complaint: Patient presents with: New Patient HISTORY OF PRESENT ILLNESS : The patient is a 50 year old, right handed male with a past medical history of anxiety, hyperlipidemia, unstable angina and tobacco use who is self referred for neurosurgical evaluation. Josie Correa is a 50-year-old male presenting with worsening low back pain and left leg radiculopathy. He is accompanied by his father, who provides additional history. Josie reports experiencing low back pain for over a year, which has progressively worsened. He describes the pain as intermittent, with a baseline intensity of 8/10, escalating to 10/10 with movement. The pain is exacerbated by standing and walking and alleviated by lying on his right side. He also experiences pain when lying on his back. He does not endorse any falls, bowel, or bladder issues. He reports radicular symptoms in the left leg, including cramping, numbness, tingling, and burning, extending from the posterior thigh to the calf and foot. The entire left foot is described as tingly. These symptoms began approximately a year ago and have worsened over time. He notes bilateral leg weakness and reports that his whole leg goes numb when standing. He does not endorse any dexterity issues. Josie has undergone 6-8 injections in his low back at [facility] without relief. He has been taking gabapentin 600 mg daily and meloxicam 15 mg, which he finds helpful. He has also been attending physical therapy twice a week, with his last session on May 07 or . 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 He reports significant impact on his daily activities, stating, I can't barely do anything, and I can't even go to the bathroom without it killing me. He also mentions difficulty taking showers, often needing to lie down on the floor afterward. He quit smoking three years ago but continues to use nicotine pouches. He does not endorse any chest pain and reports being generally healthy otherwise. Past Diagnostic Results: - (10/2022) Lumbar Spine MRI: No significant findings of nerve impingement. 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 Mobic Immunosuppressive therapy. None Physical therapy: reports at [facility] Previous healthcare providers: none Pain Management: [facility] Injections: 6-8 low back injections. Reports no relief. PREVIOUS SURGERY: None PAIN EVALUATION No data found in the last 1 encounters. PAST MEDICAL HISTORY Diagnosis Date Anxiety Essential hypertension Hyperlipidemia Tobacco use Unstable angina (HCC) heart cath 07/2019 PAST SURGICAL HISTORY Procedure Laterality Date EAR SURGERY HX Bilateral 1984 FAMILY HISTORY Problem Relation Age of Onset Hypertension Mother Hypertension Father ALLERGIES Allergen Reactions Chantix [Vareniclin* Intolerance bad dreams Current Outpatient Medications Medication Sig Dispense Refill gabapentin (NEURONTIN) 300 mg capsule TAKE 1 CAPSULE BY MOUTH TWICE DAILY FOR 28 DAYS labetalol (TRANDATE) 100 mg tablet Take 1 tablet by mouth every 12 hours. LORazepam (ATIVAN) 2 mg tab 2 mg. meclizine (ANTIVERT) 25 mg tab 4 TIMES DAILY NEEDED PRN For Dizziness meloxicam (MOBIC) 7.5 mg tablet Take 1 tablet by mouth once daily. atorvastatin (LIPITOR) 80 mg tablet Take 1 tablet by mouth once daily. 30 tablet 5 metoprolol succinate ER (TOPROL XL) 25 mg 24 hr tablet Take 1 tablet by mouth once daily. 30 tablet 5 buPROPion SR (WELLBUTRIN SR) 150 mg 12 hr tablet Take 1 tablet by mouth twice daily. 60 tablet 2 propranolol (INDERAL) 20 mg tablet Take 1 tablet by mouth as needed (30-60 minutes prior to stressful events). 30 tablet 1 lisinopril (ZESTRIL, PRINIVIL) 40 mg tablet Take 1 tablet by mouth once daily. (Patient not taking: Reported on 05/02/2025) 30 tablet 5 aspirin, enteric coated (ASPIRIN, ENTERIC COATED) 81 mg EC tablet Take 81 mg by mouth once daily. (Patient not taking: Reported on 05/02/2025) No current facility-administered medications for this visit. SOCIAL HISTORY: Currently unable to work due to pain; uses nicotine satchels. REVIEW OF SYSTEMS Review of Systems Constitutional: Negative for chills, fatigue and fever. HENT: Negative for ear pain, hearing loss, postnasal drip, sore throat, tinnitus, trouble swallowing and voice change. Eyes: Negative for photophobia and visual dis (more content not included)... [facility]02-25-2025 Evaluation note* Diagnosis Onset Date Resolution Status Admit Date Lumbar radiculopathy acute Febr uary 2024 10:25am [facility] Work Phone: [phone]) 709-695505-17-[address] Roger [facility] January 08, 2023 6:59pm Note Date/Time January 08, 2023 4:30p m [facility] Medical Records Department [address] [place] [address] Emergency Department Summary 01/08/23 MR#: [id number] Acct: [id number] Name: JOSIE CORREA II Rep #:[id number] : 1975 47 From: Mohit Roger DO PCP: Dr. Marianela Tam MD Status:REG ER Location: ED HPI History of Present Illness Chief Complaint: Chest Pain Narrative Narrative: Patient with multiple symptoms. Patient states that he started having chest pains and shortness of breath yesterday. This was intermittent. Today he had an prior to arrival. He states that he is also having some intermittent abdominal tingling. He feels like there is electrodes on his abdomen and he points to the mid abdomen. He states that he feels like there might of been a hernia in his upper abdomen yesterday which self reduced. He does not have a history of this. He states he previously had a cardiac cath in 2019 which was normal. He has a past medical history of a hypertension, hyperlipidemia, obesity, tobacco use. Patient denies any diarrhea but does state has been constipated. No nausea or vomiting. Patient also notes that his head feels like he is got some pressure in it. He denies dizziness or lightheadedness. Hestates it was not an acute onset headache. No visual changes He notes that hisblood pressure is elevated today. He forgot to take his medication. He states he takes 50 mg of labetalol twice a day. [facility] Medical History Anxiety Chest pain Chronic neck and back pain History of back problems Hyperlipidemia Hypertension Rectal bleeding Rectal bleeding Shoulder pain Sleep apnea Tobacco abuse Unstable angina Home Medications labetalol 100 mg tablet 50 mg PO BID #90 tabs 06/27/22 [Rx Last Taken Unknown] rosuvastatin 10 mg tablet 10 mg PO DAILY #90 tabs 06/27/22 [Rx Last Taken Unknown] Allergy/AdvReac Type Severity Reaction Status Date / Time No Known Allergies Allergy Verified 01/08/23 15:13 Family History Father Born with 3 heart valves instead of 4 Hypertension High cholesterol Uncle Hypertension Surgical History History of left heart catheterization (08/23/19) History of placement of ear tubes Social History Smoking Status: Current every day smoker tobacco type: cigarettes alcohol intake: current alcohol intake frequency: holidays/special occasions only substance use type: does not use ROS ROS ED Constitutional Constitutional ED: Denies chills, fever(s) or sweats Eyes Eyes: Denies blurry vision or change in vision ENT ENT ED: Denies ear pain or sore throat Cardiovascular Cardiovascular: Reports chest pain; Denies palpitations or racing heartbeat Respiratory/Chest Respiratory/Chest: Denies cough, dyspnea or sputum Gastrointestinal Gastrointestinal: Reports abdominal pain; Denies constipation, diarrhea, nausea or vomiting Genitourinary Genitourinary ED: Denies dysuria, hematuria or urinary frequency Musculoskeletal Musculoskeletal: Denies arthralgias, myalgias or neck pain Integumentary Denies abscess, Abrasions or rash Neurologic Neurologic: Reports headache(s); Denies paresthesias or weakness Psychiatric Psychiatric: Denies anxiety, depression, suicidal ideation or suicidal thoughts Endocrine Endocrinology: Denies polydipsia or polyuria EXAM Physical Exam Const Vital Signs: 01/08/23 15:11 01/08/23 15:20 01/08/23 15:37 Temperature 97.7 F L Temperature Source Temporal Pulse Rate 93 76 Respiratory Rate 16 Respiratory Effort Normal Non-Labored Blood Pressure 212/109 H 174/90 H Blood Pressure Mean 143 118 Pulse Ox 100 Oxygen Delivery Method Room Air 01/08/23 17:34 01/08/23 15:28 01/08/23 18:00 Temperature Temperature Source Pulse Rate 87 78 Respiratory Rate 20 H 15 Respiratory Effort Blood Pressure 151/90 H 160/87 H Blood Pressure Mean 110 111 Pulse Ox 98 98 Oxygen Delivery Method Room Air Room Air Room Air Positive well nourished General Appearance ED: NAD; Negative for pallor HEENT Reports moist mucous membranes normocephalic and atraumatic Eyes PERRL and EOMs intact bilaterally Resp normal respiratory effort and clear to auscultation bilaterally Cardio regular rate and regular rhythm GI normal to inspection, nondistended, normoactive bowel sounds Back/Spine no CVA tenderness Neuro oriented x3 and CN's II-XII intact bilaterally Sensorium / Orientation: awake and alert Skin no rashes or lesions noted and no wounds General Skin Exam: Negative for jaundice or pallor Heart Score History: Slightly/Non-Suspicious ECG: Normal Age: >45 - <65 years Risk Factors: >/= 3 Risk Factors or History of CAD Score: 3 MDM MDM MDM Narrative Medical decision making narrative: Patient presenting with multiple complaints. He notes that his blood pressure is up today. He forgot to take his medication. Arrival blood pressure 212/109. Given the patient's elevated blood pressure and headache I will obtain a CT of the brain to rule out intracranial hemorrhage. Differential also includes ACS, pneumonia, electrolyte abnormalities, endorgan damage. Considered PE however the patient is PERC negative. Did considered aortic dissection however he is not having a ripping and tearing feeling. Patient was given 5 mg of hydralazinefor his blood pressure. Did also consider cholecystitis, cholelithiasis, pancreatitis. He does have pain in the chest and in the abdomen so I will obtain a CBC to assess white blood cell count, hemoglobin, lites, differential. BMP to assess renal function, electrolytes, glucose, anion gap. LFTs to assess his liver function. Lipase to assess for pancreatitis. High-sensitivity troponin, EKG to rule out ischemia. Chest x-ray will be obtained as well. Patient's EKG is a sinus rhythm with a ventricular rate of 86 bpm outside of ischemia or ectopy. CBC unremarkable. BMP shows a creatinine 1.32 which is newfor the patient. He is given a liter of IV fluids. High-sensitivity troponin is 6. Delta troponin is 8 therefore there is no significant interval change. Blood pressure now 160/87. CT brain negative for acute intracranial process. Chest x-ray on my interpretation shows no acute cardiopulmonary process. The radiologist interprets this and agrees. Patient counseled to continue his bloodpressure medications at home. I feel he is stable for discharge at this time. Impression: 1. Headache 2. Elevated blood pressure 3. Chest pain 4. Abdominal pain Lab Data Labs: Laboratory Results - last 24 hr 01/08/23 01/08/23 01/08/23 15:30 15:30 15:30 WBC 6.9 RBC 4.96 Hgb 13.9 Hct 41.9 MCV 84.5 MCH 28.0 MCHC 33.2 RDW Std Deviation 39.2 RDW Coeff of Candice 12.8 Plt Count 307 MPV 9.6 Immature Gran % (Auto) 0.900 Neut % (Auto) 50.6 Lymph % (Auto) 38.3 Caroline % (Auto) 8.0 Eos % (Auto) 1.5 Baso % (Auto) 0.7 Absolute Neuts (auto) 3.5 Absolute Lymphs (auto) 2.63 Nucleated RBC % 0 Sodium 139 Potassium 4.2 Chloride 105 Carbon Dioxide 28.0 Anion Gap 6 BUN 9 Creatinine 1.32 H Estim Creat Clear Calc 64.68 Est GFR (MDRD) Af Amer 75 Est GFR (MDRD) Non-Af 62 BUN/Creatinine Ratio 6.8 L Glucose 109 H Calcium 8.8 Total Bilirubin 1.00 Direct Bilirubin 0.14 AST 31 ALT 56 Alkaline Phosphatase 80 Troponin I High Sens 6 Total Protein 7.2 Albumin 3.8 Globulin 3.4 Lipase 24 01/08/23 17:54 WBC RBC Hgb Hct MCV MCH MCHC RDW Std Deviation RDW Coeff of Candice Plt Count MPV Immature Gran % (Auto) Neut % (Auto) Lymph % (Auto) Caroline % (Auto) Eos % (Auto) Baso % (Auto) Absolute Neuts (auto) Absolute Lymphs (auto) Nucleated RBC % Sodium Potassium Chloride Carbon Dioxide Anion Gap BUN Creatinine Estim Creat Clear Calc Est GFR (MDRD) Af Amer Est GFR (MDRD) Non-Af BUN/Creatinine Ratio Glucose Calcium Total Bilirubin Direct Bilirubin AST ALT Alkaline Phosphatase Troponin I High Sens 8 Total Protein Albumin Globulin Lipase Radiography Diagnostic Testing: Clinical Impression(s) from Imaging Studies Chest X-Ray 01/08/23 15:45 IMPRESSION: No acute cardiopulmonary disease or major interval change. Electronically Signed: Alonzo Rouse DO at 16:48 EDT Reading Location ID and State: [facility] / [place] Tel [phone], Service support , Brain CT 01/08/23 16:35 IMPRESSION: Normal unenhanced CT scan of the brain. No major interval change. AIDOC was utilized to assist in identifying pertinent positive findings in this case. Electronically Signed: Alonzo Rouse DO at 16:56 EDT Reading Location ID and State: [address] [place] [address] Tel [phone], Service support , Discharge Plan Triage Chief Complaint: Chest Pain ED Provider: Mohit Roger Dx/Rx/DC Orders Prescriptions: No Action labetalol 100 mg tablet 50 mg PO BID Qty: 90 1RF Rx Instructions: take 1/2 tab to equal 50 mg BID rosuvastatin 10 mg tablet 10 mg PO DAILY Qty: 90 3RF Primary Care Provider: Marianela Tam Referrals: Marianela Tam MD [Primary Care Provider] - What to do if you have Problems For any increased pain, shortness of breath, bleeding, nausea or vomiting, chestpain, or any unexpected problems, contact your Primary Care Provider. Call [facility] ([phone]) or report to the closest Emergency Room. Call 911 if necessary. 01/08/23 1859 <Electronically signed by Mohit Roger DO> Cosigner Signature (if applicable): CC: Dr. Marianela Tam MD ~ Signed [facility] Work Phone: Evaluation note* Diagnosis Onset Date Resolution Status Encounter to establish care acute Sleep apnea in adult acute Anxiety chronic Hyperlipidemia chronic Hypertension chronic Tobacco abuse chronic [facility] Work Phone: Evaluation note* Diagnosis Onset Date Resolution Status Adult BMI 30+ acute Sleep apnea acute Tobacco abuse chronic [facility] Work Phone: Evaluation noteNo assessment information available [facility] Work Phone: Evaluation note* Diagnosis Low back pain, unspecified back pain laterality, unspecified chronicity, unspecified whether sciatica present- Primary Tingling sensation Disturbance of skin sensation Tobacco use Tobacco use disorder Radiculopathy, lumbar region Thoracic or lumbosacral neuritis or radiculitis, unspecified [facility] Diagnosis Low back pain, unspecified back pain laterality, unspecified chronicity, unspecified whether sciatica present [facility] Additional Instructions Thank you for trusting us with your care today! Please take Tylenol (2 pills, 650 mg), ibuprofen (2 pills, 400 mg) every 6 hours as needed for pain and fever control. Please return to the emergency department if your symptoms change or worsen. Specifically if you have vomiting cannot tolerate medicine by mouth. Develop worsening pain. You lose consciousness. If you do not have a bowel movement at your regular interval. Please follow with your primary care physician for further outpatient evaluation and management.[facility] Work Phone: Reason for referral (narrative)No reason for referral information availableColusa [facility] Work Phone: Reason for visit Narrative* Diagnostic Procedure Only (Routine) - Closed Specialty Diagnoses / Procedures Referred By Contac t Referred To Contact XR IMAGING Diagnoses Low back pain, unspecified back pain laterality, unspecified chronicity, unspecified whether sciatica present Procedures XR LUMBAR MOTION 4V AP/LAT/ FLEX/EXT RADEX SPINE LUMBOSACRAL MINIMUM 4 VIEWS Aditya Lama MD, PhD [address] [place] [address] Phone: tel: fax: [place] [phone] Referral ID Status Reason Start Date Expiration Date V isits Requested Visits Authorized [id number] Closed Auto-Generate d Referral 04/22/2025 05/22/2026 1 1 [facility] Chief Complaint and Reason for Visit Chief Complaint SPECIFICATION MANAGER, EST. CARE, NPP M MALENA Reason for Visit Encounter to [facility] Sleep apnea in adult Anxiety Hyperlipidemia Hypertension Tobacco abuse Chief Complaint SPECIFICATION MANAGER, EST. CARE, NPP M MALENA SLEEP APNEA; LM 4/1 Reason for Visit Encounter to [facility] Sleep apnea in adult Anxiety Hyperlipidemia Hypertension Tobacco abuse Chief Complaint SLEEP APNEA; LM 4/1 Sleep problems TEODORA; AUTO CPAP *INVENTORY TAGGED* Reason for Visit Adult BMI 30+ Sleep apnea Tobacco abuse Chief Complaint CHEST PAIN Chief Complaint CHEST PAIN ABD PAIN Chief Complaint Admit Date LUMBAR SPINE October 19, 2024 10:25am Room 2 October 19, 2024 10:39am Pain November 22, 2024 9:4 0am Reason for Visit Admit Date Lumbar radiculopathy October 19, 2024 10:25am Chief Complaint Admit Date Surgery Clearance June 09, 2025 1 1:39am PREOP, ABN EKG, HTN *KARIM TO READ* Octo 2024 7:04am PREOP, ABN EKG, HTN *KARIM TO READ* Octo 2024 11:28am Reason for Visit Admit Date Abnormal ECG June 09, 2025 1 1:39am Lumbar radiculopathy June 09, 2025 11:39am Preop exam for internal medicine June 09, 2025 11:39am Anxiety June 09, 2025 1 1:39am Hyperlipidemia June 09, 2025 1 1:39am Hypertension June 09, 2025 1 1:39am Family History No Family History Records Found Relationship Condition Age at Onset Recorded Date/T dirk father Unknown Hypertension Unknown High blood cholesterol Unknown uncle Hypertension Unknown Advance Directives No Advanced Directives Records Found Advance Directive Response Recorded Date/ Time Living Will No July 11, 020 10:00am Power of Information Architect No July 11, 2020 10:00am Advance Directive Response Recorded Date/ Time Living Will No January 08, 2023 3 :20pm Power of Information Architect No January 08, 2023 3:20pm Advance Directive Response Recorded Date/ Time Living Will No February 26, 2023 3 :20pm Power of Information Architect No February 26, 2023 3:20pm Summary Purpose Additional Source Comments Goals (unrecognized section and content) Goals may be documented in a n alternate sectionGoals may be documented in an alternate sectionGoals may be documented in an alternate sectionGoals may be documented in an alternate sectionGoals may be documented in an alternate sectionGoals may be documented in an alternate sectionGoals may be documented in an alternate section Care Teams (unrecognized sec tion and content) Team Status: Active Member Role Status Dates Dr. Madhu Figueroa MD Family Provider Active Dr. Marianela Tam MD Primary Care Provider Active Team Status: Inactive Member Role Status Dates Dr. Marianela Tam MD Primary Care Provider Active Dr. Mohit Roger DO Emergency Provider Active Team Status: Inactive Member Role Status Dates Dr. Marianela Tam MD Primary Care Provider Active Dr. Mohit Roger DO Attending Provider, Emergency Provider Active Team Status: Inactive Member Role Status Dates Dr. Marianela Tam MD Primary Care Provider Active Dr. Low Devin , DO Emergency Provider Active Team Status: Active Member Role Status Dates Dr. Marianela Tam MD Primary Care Provider Active Team Status: Inactive Member Role Status Dates Dr. Marianela Tam MD Primary Care Provider Active Start: October 19, 2024 End: October 19, 2024 Dr. Marianela Tam MD Referring Provider Active Start: October 19, 2024 End: October 19, 2024 YOHAN Warren Attending Provider Active Star t: October 19, 2024 End: October 19, 2024 Team Status: Inactive Member Role Status Dates Dr. Marianela Tam MD Primary Care Provider Active Start: October 19, 2024 End: October 19, 2024 Dr. Luigi Ramos MD Attending Provider Active S tart: October 19, 2024 End: October 19, 2024 Team Status: Inactive Member Role Status Dates Dr. Marianela Tam MD Primary Care Provider Active Start: November 22, 2024 End: November 22, 2024 YOHAN Warren Attending Provider Active Star t: November 22, 2024 End: November 22, 2024 YOHAN Warren Referring Provider Active Star t: November 22, 2024 End: November 22, 2024 Team Status: Active Member Role/Relationship Status Dates Dr. Marianela Tam MD Primary care physician Active Team Status: Inactive Member Role/Relationship Status Dates Dr. Marianela Tam MD Primary care physician Active Start: June 09, 2025 End: June 09, 2025 Dr. Marianela Tam MD Attending physician Active Start: June 09, 2025 End: June 09, 2025 Team Status: Active Member Role/Relationship Status Dates Dr. Marianela Tam MD Primary care physician Active Start: June 21, 2025 Dr. Marianela Tam MD Attending physician Active Start: June 21, 2025 Dr. Marianela Tam MD Referring Provider Active Start: June 21, 2025 Team Status: Active Member Role/Relationship Status Dates Dr. Marianela Tam MD Primary care physician Active Start: June 21, 2025 Dr. Marianela Tam MD Referring Provider Active Start: June 21, 2025 Dr. Marianela Tam MD Nurse Practitioner Active Start: June 21, 2025 Dr. Magno Griggs MD Attending physician Active Start: June 21, 2025 Source Comments (unrecognize d section and content) In the event this informatio n is protected by the Federal Confidentiality of Alcohol and Drug Abuse Patient Records regulations: The Federal rules restrict any use of the information to criminally investigate or prosecute any alcohol or drug abuse patient.[facility] the event this information is protected by the Federal Confidentiality of Alcohol and Drug Abuse Patient Records regulations: The Federal rules restrict any use of the information to criminally investigate or prosecute any alcohol or drug abuse patient.[facility] the event this information is protected by the Federal Confidentiality of Alcohol and Drug Abuse Patient Records regulations: The Federal rules restrict any use of the information to criminally investigate or prosecute any alcohol or drug abuse patient.[facility] Reason for Visit (unrecogniz ed section and content) Reason Comments New Patient Reason Comments Patient Question (unrecognized sect ion and content) No Status Records FoundNo Status Records FoundNo Status Records Found INFORMATION SOURCE (unrecogn ized section and content) DATE CREATED AUTHOR 06/10/2025 [facility] DATE CREATED AUTHOR 'S HENRRY ATMILTON 07/03/2025 [facility] DATE CREATED AUTHOR AUTHOR'S HENRRY MAXWELL 07/03/2025 [facility] FOR RECORDS PERTAINING TO PATIENTS WHO ARE OR HAVE BEEN ENROLLED IN A CHEMICAL DEPENDENCY/SUBSTANCEABUSE PROGRAM, SOME INFORMATION MAY BE OMITTED. This clinical summary was aggregated from multiple sources. Caution should be exercised in using it in the provision of clinical care. This summary normalizes information from multiple sources, and as a consequence, information in this document may materially change the coding, format and clinical context of patient data. In addition, data may be omitted in some cases. CLINICAL DECISIONS SHOULD BE BASED ON THE PRIMARY CLINICAL RECORDS. [facility] [employer] [facility]. provides no warranty or guarantee of the accuracy or completeness of information in this document.
[2025-08-16] MEDS: 0.9% Normal Saline (1000mL) 1,000 ML 999 ML IV (20:42)
[2025-08-16 20:44] LABS: AST(SGOT) 34 U/L (<=37); Alanine Aminotransfer ALT/SGPT 40 U/L (<=46); Albumin, Serum 4.6 g/dL (3.5-5.0); Alkaline Phosphatase 90 U/L (40-129); Anion Gap 12 (7-18); BUN 9 mg/dL (4-19); BUN/Creat Ratio 8.2 RATIO (10-20); Bilirubin, Direct 0.48 mg/dL (0.00-0.30); Calcium,Total 9.3 mg/dL (7.6-11.0); Carbon Dioxide 24.6 mmol/L (20.0-29.0); Chloride 100 mmol/L (96-106); Estimated Creatinine Clearance 86.26 ml/min (50-250); Globulin 3.0 g/dL (2.2-4.2); Glucose 105 mg/dL (70-99); Lipase 30 U/L (13-75); Potassium 3.8 mmol/L (3.5-5.1); Pro- Brain NATRIURETIC PEPTIDE 40 pg/mL (<=900); Troponin T High Sensitivity 12 ng/L (<=22)
[2025-08-16 21:00] VITALS: BP 179/86; PULSE 72; RESP 19; O2SAT 97
[2025-08-16] MEDS: Lidocaine 2% Viscous15 ML UDC 15 ML PO (21:03)
[2025-08-16] MEDS: Mag /Aluminum/Simeth WCH UDC 30 ML ORAL.SUSP PO (21:04)
--- NOTE | 2025-08-16 21:21 | EX.ED.DYSGE1 ---
HPI History of Present Illness Chief Complaint: Chest Pain Narrative Narrative: Patient is a 50-year-old male with a past medical history of TEODORA, anxiety, tobacco use, hypertension who presented to the emergency department the chief complaint of chest pain and elevated blood pressure. He states that he has had chest pain and shortness of breath on and off for the past 2 days and he states that when he gets up and walks around his pain improves. He states that despite taking his blood pressure medication his blood pressure still been running high. He denies any recent travel history denies any history of blood clots. He states that he has been nauseous and dry heaving but not vomiting. Patient denies any recent sick contacts. Patient states that he did have a stress test earlier this year in June for preoperative clearance for a back surgery and he states that this was normal. [facility] Medical History Abnormal ECG Preop exam for internal medicine Sciatica Annual wellness visit Chronic neck and back pain Shoulder pain Rectal bleeding Sleep apnea History of back problems Rectal bleeding Hyperlipidemia Unstable angina Anxiety Tobacco abuse Hypertension Chest pain Home Medications ?Medication ?Instructions ?Recorded ?Last Taken ?Type gabapentin 300 mg capsule 300 mg PO BID #60 caps 06/09/25 Unknown Rx labetalol 100 mg tablet 100 mg PO BID #180 tabs 07/25/25 Unknown Rx escitalopram oxalate 10 mg tablet 10 mg PO QDAY #90 tabs 08/08/25 Unknown Rx pantoprazole 40 mg tablet,delayed 40 mg PO DAILY #30 tabs 08/16/25 Unknown Rx release Allergy/AdvReac Type Severity Reaction Status Date / Time No Known Allergies Allergy Verified 08/16/25 19:49 Family History Father Born with 3 heart valves instead of 4 Hypertension High cholesterol Uncle Hypertension Surgical History History of placement of ear tubes History of left heart catheterization (08/23/19) Social History Smoking Status: Smoker, status unknown alcohol intake: current alcohol intake frequency: holidays/special occasions only substance use type: does not use ROS ROS ED ROS Narrative Constitutional: Denies any fevers, chills, headache Eyes: Denies double vision Cardiovascular: Complains of chest discomfort as noted above denies palpitations Respiratory: Denies coughing wheezing Abdomen: Complains of nausea as noted above denies vomiting or diarrhea : Denies urinary symptoms Neurological: Denies any numbness, weakness, tingling Musculoskeletal: Denies back pain Skin: Denies any rashes or lesions EXAM Physical Exam Narrative Exam Narrative: General: Patient is lying in bed rest comfortably not appear to be in acute distress Head: Atraumatic, normocephalic Eyes: PERRL bilaterally, EOMI bilaterally, no conjunctival injection noted Neck: Soft, supple, trachea midline Cardiovascular: Regular rate and rhythm no murmurs gallops rubs noted Respiratory: Clear to auscultation bilaterally Abdomen: Soft, nondistended, patient has tenderness to palpation of the right upper quadrants no rebound or guarding exam n Extremities: +5/5 strength noted in the bilateral lower extremities, radial pulses +2/4 in the bilateral extremities Neurological: Patient following commands and that he was at [facility] year is 2024 Skin: Warm, dry, intact no rashes or lesions noted Const Vital Signs: 08/16/25 19:47 08/16/25 20:13 08/16/25 20:31 Temperature 98.1 F Temperature Source Oral Pulse Rate 89 81 Respiratory Rate 20 H 20 H Respiratory Effort Blood Pressure 198/94 H 177/88 H Blood Pressure Mean 128 113 Pulse Ox 99 95 Oxygen Delivery Method Room Air Room Air 08/16/25 20:52 08/16/25 21:00 08/16/25 22:00 Temperature Temperature Source Pulse Rate 72 73 Respiratory Rate 19 H 13 Respiratory Effort Normal Non-Labored Blood Pressure 179/86 H 148/84 H Blood Pressure Mean 113 102 Pulse Ox 97 98 Oxygen Delivery Method MDM MDM MDM Narrative Medical decision making narrative: Patient is a 50-year-old male who presented to the emergency department the chief complaint of chest pain that has been going on for 2 days off-and-on now as well as hypertension with nausea. On the differential diagnosis includes but not limited to ACS, pneumonia, pneumothorax, hypertensive emergency, essential hypertension, viral gastroenteritis, acute cholecystitis. Once the workup is obtained reviewed he will be reevaluated. Patient CBC was reviewed white blood count was noted be normal at 6.7, hemoglobin stable at 14.2, platelet count normal at 305. Patient sodium normal at 137, potassium normal at 3.8, creatinine normal at 1.13. Patient's AST and ALT were 34 and 40 respectively total Ronnie slightly elevated to 1.58 however this is chronically elevated compared to previous blood draws. Patient's troponin was noted be 12 with a delta troponin of 14, EKG was reviewed which showed sinus rhythm with a rate of 80 bpm [place] interval 152. Patient lipase normal at 30. Patient's gallbladder ultrasound was reviewed and showed no findings to suggest acute cholecystitis hepatic steatosis nonspecific echogenicity of the pancreas noted. Patient chest x-ray reviewed by myself by radiology showed no acute cardiopulmonary processes. Patient blood pressure did improve significantly with the oral clonidine. Patient states that he feels significantly better with the GI cocktail. Patient will be given a dose of Protonix here he will be placed on Protonix daily and was advised to follow-up with his doctor in the outpatient setting. He was encouraged to keep a close eye on his blood pressure and call his doctor to see if they want to make any medication adjustments for his antihypertensive. He is encouraged to return with worsening symptoms or concerns. Family member bedside is also agreeable to plan all question concerns answered is discharged home in stable condition Lab Data Labs: Laboratory Results - last 24 hr 08/16/25 08/16/25 20:10 21:55 WBC 6.7 RBC 5.21 Hgb 14.2 Hct 41.9 MCV 80.4 MCH 27.3 MCHC 33.9 RDW Std Deviation 34.7 L RDW Coeff of Candice 12.0 Plt Count 305 MPV 10.0 Immature Gran % (Auto) 0.400 Neut % (Auto) 59.4 Lymph % (Auto) 31.5 [place] % (Auto) 7.6 Eos % (Auto) 0.7 Baso % (Auto) 0.4 Absolute Neuts (auto) 4.0 Absolute Lymphs (auto) 2.11 Nucleated RBC % 0 Sodium 137 Potassium 3.8 Chloride 100 Carbon Dioxide 24.6 Anion Gap 12 BUN 9 Creatinine 1.13 Estim Creat Clear Calc 86.26 Est GFR (MDRD) Non-Af 79 BUN/Creatinine Ratio 8.2 L Glucose 105 H Calcium 9.3 Total Bilirubin 1.58 H Direct Bilirubin 0.48 H AST 34 ALT 40 Alkaline Phosphatase 90 Troponin T High Sens 12 Troponin T Hi Sens 2 Hr 14 NT pro BNP II 40 Total Protein 7.5 Albumin 4.6 Globulin 3.0 Lipase 30 Radiography Diagnostic Testing: Clinical Impression(s) from Imaging Studies Chest X-Ray 08/16/25 20:10 IMPRESSION: No acute cardiopulmonary disease. Reading Location: [facility] Gallbladder Ultrasound 08/16/25 20:12 IMPRESSION: No acute cholecystitis. Hepatic steatosis. Nonspecific echogenicity of the pancreas. Reading Location: [facility] Discharge Plan Triage Chief Complaint: Chest Pain Other Complaint: Nausea/Vomiting ED Provider: Adriel Waldron Dx/Rx/DC Orders Clinical Impression: Abdominal pain, Chest pain, GERD (gastroesophageal reflux disease) Prescriptions: New pantoprazole 40 mg tablet,delayed release (DR/EC) 40 mg PO DAILY Qty: 30 1RF No Action gabapentin 300 mg capsule 300 mg PO BID Qty: 60 0RF labetalol 100 mg tablet 100 mg PO BID Qty: 180 3RF escitalopram oxalate 10 mg tablet 10 mg PO QDAY Qty: 90 1RF Primary Care Provider: Alysha Tam Referrals: Alysha Tam MD [Primary Care Provider, Internal Medicine - [facility]] Activity Restrictions/Additional Instructions: Your blood work did not show acute findings here today. Your chest x-ray was normal your ultrasound your gallbladder was normal. Take prescription as prescribed follow-up your doctor in the outpatient setting in regards to your blood pressure to see if they need to make any adjustments to your antihypertensives. Return with worsening symptoms or any other concerns Print Language: Croatian Disposition Disposition: Home, Self Care
[2025-08-16 22:00] VITALS: BP 148/84; PULSE 73; RESP 13; O2SAT 98
[2025-08-16 22:16] LABS: Troponin T High Sens 2 HR 14 ng/L (<=22)
[2025-08-16 23:00] VITALS: BP 151/82; PULSE 76; RESP 16; TEMP 36.6; O2SAT 98
[2025-08-16] MEDS: Pantoprazole Sodium 40 MG in 0.9% Normal Saline (100mL MB+) 100 ML 300 MG IV (23:02)
== END 2025-08-16 23:17 | disposition home or self-care (01) ==
PROVIDERS: Emergency Provider Emergency Medicine; PCP Internal Medicine; Visit Provider Emergency Medicine
DX: R07.9 Chest pain, unspecified (principal); R06.02 Shortness of breath; I10 Essential (primary) hypertension; K21.9 Gastro-esophageal reflux disease without esophagitis; F17.200 Nicotine dependence, unspecified, uncomplicated; Z79.899 Other long term (current) drug therapy
CPT/HCPCS: 71046; 76705; 80048; 80076; 83690; 83880; 84484; 85025; 93005; 96360; 99284; A4216